=== PATIENT | male | born 1960 | race Caucasian/White ===

== ENCOUNTER 2018-01-23 09:27 | Outpatient (CLI) | payer OTHER, SELFPAY ==
--- NOTE | 2018-01-23 09:25 | DI.RAD_ITS ---
SYMPTOMS/DIAGNOSIS: COUGH X 5 DAYS, ? PNEUMONIA PA AND LATERAL CHEST: The heart is not enlarged. The left lung is clear. There are areas of patchy consolidation, predominantly in the right upper lobe, consistent with acute infectious process. No pleural effusions seen. Mediastinal contours appear normal. CONCLUSION: Findings consistent with right upper lobe pneumonia. Appropriate follow-up studies requested following treatment.
== END 2018-01-23 09:47 ==
PROVIDERS: PCP Family Medicine; Visit Provider Family Medicine
DX: R05 Cough (principal); J18.9 Pneumonia, unspecified organism
CPT/HCPCS: 71046

== ENCOUNTER 2018-04-25 21:24 | Emergency (ER) | payer OTHER, SELFPAY ==
[2018-04-25 21:27] VITALS: BP 142/86; PULSE 82; RESP 20; TEMP 36.7; O2SAT 96
--- NOTE | 2018-04-25 21:34 | ED.GENADUL_ITS ---
Discharge Plan Disposition Patient Disposition: HOME Condition: Improving Discharge Details Chief Complaint: RespSymp Clinical Impression: Acute bronchitis Primary Care Provider: Landon Almaguer ED Provider: Julius Freire Home Meds and New Rx's Prescriptions: New prednisone 20 mg tablet 40 mg PO DAILY 5 Days Qty: 10 RF: 0 doxycycline hyclate 100 mg capsule 100 mg PO BID 10 Days Qty: 20 RF: 0 Continued atorvastatin [Lipitor] 10 MG tablet 10 mg PO DAILY RF: 0 omeprazole 20 MG capsule,delayed release(DR/EC) 20 mg PO DAILY RF: 0 fluticasone [Flovent HFA] 120 PUFF HFA aerosol inhaler 1 puff Inhalation PRN PRNRF: 0 albuterol sulfate 8.5 GM HFA aerosol inhaler 2 puff Inhalation PRN PRNRF: 0 fluticasone [Flonase] 16 GM spray,suspension 1 spry NS PRN PRNRF: 0 Discontinued amoxicillin-pot clavulanate 1 TAB tablet 1 ea PO BID Qty: 20 RF: 0 Discharge Instructions Instructions: Acute Bronchitis (ED) Additional Instructions: Please take prednisone and doxycycline as prescribed. Follow-up with regular doctor if not improving in 3-5 days time. Return to the emergency department for any acute concerns Medical Decision Making 57-year-old male presents from home complaining of 2 weeks of cough and congestion and feels similar to pneumonia that he had in December. He is afebrile, well-appearing, with normal oxygenation. Given inhaled DuoNeb and oral prednisone, referred for chest x-ray. Somewhat improved with inhaled DuoNeb. Chest x-ray is without focal infiltrate. We will treat for acute bronchitis with bronchospasm with both a burst of prednisone as well as a 10-day course of doxycycline. Patient stable, improved, appropriate for discharge to home. HPI General Mode of arrival: ambulatory . Date/Time Provider Initiated Documentation: 04/25/18 21:27 . Limitations to Documentation: no limitations . Information obtained by: patient . History of Present Illness 57 year old M presents to the emergency department with the chief complaint of Cough times 2 weeks, described as similar to prior episodes, Quality is described as dull, and is localized to the chest. Patient reports no radiation. Patient started experiencing this day(s) and it has been constant. No relieving factors improve symptom(s), No exacerbating factors reported . Patient notes cough and shortness of breath. Patient did receive the following treatments prior to arrival, none Related Data Home Medications Medication Instructions Recorded Confirmed albuterol sulfate 2 puff INHALATION PRN PRN 01/02/13 01/02/13 atorvastatin [Lipitor] 10 mg PO DAILY 01/02/13 01/02/13 fluticasone [Flonase] 1 spry NS PRN PRN 01/02/13 01/02/13 fluticasone [Flovent HFA] 1 puff INHALATION PRN PRN 01/02/13 01/02/13 omeprazole 20 mg PO DAILY 01/02/13 01/02/13 doxycycline hyclate 100 mg PO BID 10 Days #20 cap 04/25/18 prednisone 40 mg PO DAILY 5 Days #10 tab 04/25/18 Previous Rx's Medication Instructions Recorded doxycycline hyclate 100 mg PO BID 10 Days #20 cap 04/25/18 prednisone 40 mg PO DAILY 5 Days #10 tab 04/25/18 Allergies Allergy/AdvReac Type Severity Reaction Status Date / Time No Known Allergies Allergy Unverified 06/19/12 06:35 General Stated Complaint: RespSymp JADA: 3 Review of Systems Review of Systems 8 systems reviewed and otherwise negative [facility] Social History Smoking and Tabacco status: Never Exam Narrative Exam Narrative: GEN: awake, alert, oriented 3. Pleasant, well groomed, interactive. HEAD: Normocephalic, atraumatic ENT: Mucous membranes moist, oropharynx unremarkable, External ear exam unremarkable EYES: PERRL, EOMI NECK: Full ROM, no MAURICIO, no menigismus CHEST/RESP: Nontender, clear to auscultation bilateral, scant end expiratory wheeze, no rhonchi/rales. Cough noted CARDIOVASCULAR: RRR, no murmur, rub bob. 2+ Rad pulse bilateral ABDOMEN: Soft, nontender, no mass. +Bowel sounds EXT: Full ROM, no edema, no rash Neuro: Grossly normal neurologic exam, conversant, interactive. Psych: Speech fluent, thoughts congruent, affect normal Course Vital Signs Temperature 36.7 C 04/25/18 21:27 Pulse 82 04/25/18 21:27 Respiratory Rate 20 04/25/18 21:27 Blood Pressure 142/86 H 04/25/18 21:27 Pulse Oximetry 96 04/25/18 21:27 Temperature 36.7 C 04/25/18 21:27 Temperature Source Temporal Artery Scan 04/25/18 21:27 Pulse 82 04/25/18 21:27 Respiratory Rate 20 04/25/18 21:27 Respiratory Effort Non-Labored 04/25/18 21:30 Blood Pressure 142/86 H 04/25/18 21:27 Blood Pressure Position Sitting 04/25/18 21:27 Pulse Oximetry 96 04/25/18 21:27 Oxygen Delivery Method Room Air 04/25/18 21:27 Oxygen Flow Rate 0 04/25/18 21:27 Pain Level 5 04/25/18 21:27
--- NOTE | 2018-04-25 21:38 | DI.RAD_ITS ---
SYMPTOMS/DIAGNOSIS: COUGH, CONGESTION PA AND LATERAL CHEST: Comparison is made with [id number]. The heart size is normal. The aorta is tortuous, unchanged. The lungs appear clear. No infiltrate or effusion is seen. IMPRESSION: No acute abnormality.
[2018-04-25] MEDS: Albuterol/Ipratropium 3 ML UPD VIAL UPD (21:49)
[2018-04-25] MEDS: predniSONE 20 MG TAB 60 MG PO (21:49)
[2018-04-25] MEDS: Doxycycline Hyclate 100 MG CAP PO (22:39)
--- NOTE | 2018-04-25 23:34 | DI.VRAD_ITS ---
EXAM: XR Chest, 2 Views EXAM DATE/TIME: 04/25/2018 10:30 PM CLINICAL HISTORY: 57 years old, male; Signs and symptoms; Cough; Patient HX: Cough, congestion TECHNIQUE: XR of the chest, 2 views. COMPARISON: CR XR CHEST 2V PA LATERAL 01/23/2018 9:22 AM FINDINGS: Lungs: Unremarkable. No consolidation. Pleural space: Unremarkable. No pleural effusion. No pneumothorax. Heart/Mediastinum: Unremarkable. No cardiomegaly. Bones/joints: Unremarkable. IMPRESSION: No acute findings. Dictated and Authenticated by: Lucy Davies MD. Ordering:ESTEVAN Madrid MD
== END 2018-04-25 22:42 | disposition home or self-care (01) ==
PROVIDERS: Emergency Provider Emergency Medicine; PCP Family Medicine
DX: R09.89 Other specified symptoms and signs involving the circulatory and respiratory systems (principal); R06.02 Shortness of breath; J20.9 Acute bronchitis, unspecified
CPT/HCPCS: 94640; 99283; 71046; J7512; J7620

== ENCOUNTER 2018-05-12 02:54 | Outpatient (CLI) | payer OTHER, SELFPAY ==
[2018-05-12] MEDS: Inhaler, Assist Device 1 EACH MC (13:51)
[2018-05-12] MEDS: Albuterol HFA 18 GM 200 PUFF INH IH (13:51)
--- NOTE | 2018-05-12 20:04 | PFT_ITS ---
DATE OF SERVICE: 05/12/18 REQUESTING PROVIDER: Dr. Una Gamez Spirometry shows no evidence of obstructive airways disease. No bronchodilator response. Lung volumes show no evidence of restriction. Diffusion capacity normal. Airways resistance normal. IMPRESSION: Normal pulmonary function study. If the diagnosis of asthma is in question, proceeding with methylcholine challenge testing may prove to be useful. Clinical correlation, therefore, recommended.
== END 2018-05-12 03:14 ==
PROVIDERS: PCP Family Medicine; Visit Provider Internal Medicine Pulmonary Disease
DX: R05 Cough (principal)
CPT/HCPCS: 94060; 94150; 94726; 94729

== ENCOUNTER 2018-07-13 05:47 | Outpatient (CLI) | payer OTHER, SELFPAY ==
[2018-07-13 08:44] LABS: Cholesterol 201 mg/dL (50-200); HDL Cholesterol 37 mg/dL (40-60); LDL CHOLESTEROL 136 mg/dL (<100); Triglyceride 108 mg/dL (30-150)
[2018-07-14 10:13] LABS: PSA, Screening 0.4 ng/ml (0-3.5)
== END 2018-07-13 06:07 ==
PROVIDERS: PCP Family Medicine; Visit Provider Family Medicine
DX: E78.5 Hyperlipidemia, unspecified (principal); Z12.5 Encounter for screening for malignant neoplasm of prostate
CPT/HCPCS: 36415; 80061; 83721; 84153

== ENCOUNTER 2018-09-25 07:02 | Day surgery (SDC) | payer OTHER, SELFPAY ==
[2018-09-25 07:16] VITALS: BP 135/81; PULSE 47; RESP 15; TEMP 36.6; O2SAT 100
[2018-09-25] MEDS: Lactated Ringers 1,000 ML 80 ML IV (07:51)
--- NOTE | 2018-09-25 08:09 | W.PM.DSUDISC ---
Discharge Plan Disposition Patient Disposition: HOME Condition: Good Discharge Details Reason For Visit: Colonoscopy Attending Provider: Magy Villarreal Primary Care Provider: Landon Almaguer Home Meds and New Rx's Prescriptions: Continued hydrocortisone [Anusol-HC] 2.5 % cream with perineal applicator 1 applic AK QD-BID PRNRF: 0 omeprazole 20 MG capsule,delayed release(DR/EC) 20 mg PO DAILY RF: 0 Flovent HFA 120 PUFF HFA aerosol inhaler 1 puff Inhalation PRN PRNRF: 0 albuterol sulfate 8.5 GM HFA aerosol inhaler 2 puff Inhalation PRN PRNRF: 0 fluticasone propionate [Flonase] 16 GM spray,suspension 1 spry NS PRN PRNRF: 0 Discharge Instructions Additional Instructions: Your colonoscopy showed diverticulosis. Take in 30 grams of fiber daily. No polyps were found. Due to history of polyps, plan for a colonoscopy in 5 years. Activity:: Activity as Tolerated Diet:: As Tolerated Discharge Orders Discharge Orders: Discharge Order (Routine); Ordered 09/25/18 Ordered By: Magy Villarreal DS: Diagnosis Discharge Diagnosis (1) Diverticulosis: Start date: 09/25/18 Start time: 08:46
[2018-09-25] MEDS: Ondansetron 4 MG/2 ML VIAL IVP (09:09)
[2018-09-25 09:48] VITALS: BP 131/86; PULSE 42; RESP 18; TEMP 36.3; O2SAT 97
--- NOTE | 2018-09-25 12:07 | ROE_ITS ---
DATE OF PROCEDURE: September 25, 2018 PREOPERATIVE DIAGNOSIS: History of colon polyps. POSTOPERATIVE DIAGNOSIS: Diverticulosis. PROCEDURE: Colonoscopy. SURGEON: Magy Villarreal M.D. ANESTHESIA: Monitored Anesthesia Care. INDICATIONS: This is a 57-year-old man whose last colonoscopy in 2012 showed tubular adenomas. He p resents for routine follow-up. He has no family history of colon cancer and is asymptomatic. PROCEDURE: He was placed in the left Reddy position. Propofol was titrated to sedation. Digital rec kapil examination revealed no abnormalities. The scope was advanced to the cecum without difficulty. He was noted to have a slightly tortuous sigmoid colon. The ileocecal valve and appendiceal orifice were clearly identified. His prep was excellent. The scope was slowly withdrawn with no abnormaliti es seen within the ascending, transverse or descending colon. He had moderate diverticular change in the sigmoid region. The rectum was normal including on retroflex view. He tolerated the procedure well and was stable to recovery. With his prior history of polyps he will need a follow-up colonosco py again in five years. cc: Landon Almaguer D.O.
== END 2018-09-25 09:59 | disposition home or self-care (01) ==
PROVIDERS: PCP Family Medicine; Visit Provider Surgery
PROC: 0DJD8ZZ Inspection of Lower Intestinal Tract, Via Natural or Artificial Opening Endoscopic (ICD-10-PCS; CPT 45378; principal; 2018-09-25 08:15)
DX: Z12.11 Encounter for screening for malignant neoplasm of colon (principal); Z86.010 Personal history of colon polyps; K57.30 Diverticulosis of large intestine without perforation or abscess without bleeding; K21.9 Gastro-esophageal reflux disease without esophagitis; E78.5 Hyperlipidemia, unspecified; G47.33 Obstructive sleep apnea (adult) (pediatric)
CPT/HCPCS: 45378; J2405

== ENCOUNTER 2018-09-25 13:29 | Inpatient (IN) | payer OTHER, SELFPAY ==
[2018-09-25] VITALS (29 sets, daily range): BP systolic 95–122; BP diastolic 53–80; PULSE 54–172; RESP 13–44; TEMP 36.2–39.3; O2SAT 92–98
[2018-09-25] MEDS: Normal Saline 1,000 ML 1000 ML IV ×3 (14:20→18:12)
--- NOTE | 2018-09-25 14:28 | DI.RAD_ITS ---
SYMPTOMS/DIAGNOSIS: FEVER CHEST X-RAY, PA AND LATERAL: Comparison is 04/25/18. The heart size and pulmonary vasculature are stable and within normal limits. There is an infiltrate in the left lingula. The lungs are otherwise clear. No effusions or pneumothoraces are identified. Age- appropriate degenerative changes are seen in the spine. IMPRESSION: Left lingular pneumonia.
[2018-09-25 14:30] LABS: Lactate 2.7 mmol/L (0.6-1.4)
[2018-09-25 14:31] LABS: Abs Immature Grans 0.02 k/cumm (0.0-0.09); Absolute Basophil Count 0.01 k/cumm (0.0-0.2); Absolute Lymphocyte Count 0.39 k/cumm (1.2-3.4); Absolute Monocyte Count 0.32 k/cumm (0.11-0.7); Absolute Neutrophil Count 13.24 k/cumm (1.2-6.7); Basophils % 0.1; Eosinophils % 0.1; HCT 42.9 % (40.0-50.0); HGB 14.2 g/dL (13.5-17.5); Immature Grans % 0.1; Lymphocytes % 2.8; Mean Corp. HGB Concentration 33.1 g/dL (32.0-36.0); Mean Corpuscular Hemoglobin 29.8 pg (27.0-33.0); Mean Corpuscular Volume 89.9 fL (80-95); Monocytes % 2.3; Neutrophils % 94.6; Platelet Count 178 x1000/uL (130-400); RBC 4.77 m/cumm (4.50-6.00)
[2018-09-25 14:34] LABS: Absolute Eosinophil Count 0.01 k/cumm (0.0-0.7)
[2018-09-25 14:45] LABS: ALT 23 U/L (12-78); AST 15 U/L (15-37); Albumin 3.7 g/dL (3.4-5.0); Alkaline Phosphatase 68 U/L (46-116); Anion Gap 9.6 mmol/L (3-11); BUN 18 mg/dL (7-18); Bilirubin, Total 0.6 mg/dL (0.2-1.0); CO2 26.4 mmol/L (21.0-32.0); Calcium 8.7 mg/dL (8.5-10.1); Chloride 101 mmol/L (98-107); Glucose 142 mg/dL (70-100); Potassium 3.7 mmol/L (3.5-5.1); Sodium 137 mmol/L (136-145); Total Protein 7.5 g/dL (6.4-8.2)
[2018-09-25] MEDS: Ketorolac 15 MG/ML VIAL IVP (14:56)
--- NOTE | 2018-09-25 14:59 | W.ED.GENAD ---
Discharge Plan Disposition Patient Disposition: [facility] INPATIENT Condition: Good Discharge Details Chief Complaint: GenMedical Clinical Impression: Aspiration pneumonia Admit Date/Time: 09/25/18 15:47 Admit Provider: Lala Ovalle Attending Provider: Donaldo Vigil Primary Care Provider: Lnadon Almaguer [facility] Course: Mr. Frankel was admitted for aspiration pneumonia following a colonoscopy on 09/25. He was sedated, threw up after sedation went home and within hours had rigors, febrile and flu like sx. He had a nonproductive cough with an elevated lactate. He was admitted to [facility] and started on Zosyn and IV fluids. He was also given steroids in the ED. Over the course of his hospitalization his lactate normalized in 24 hours. He was afebrile, he did have an increase in leukocytosis but likely attributed to steroids. He was transitioned to oral augmentin 24 hours after hospitalization his steroids were decreased and he was feeling remarkable with a decrease in leukocytosis. He was ambulating in the hallway, lung sounds clear, no cough, fever or sputum production. He was also found to have possible ileus by CT he did ambulate, never had any abdominal pain and had regular bm. Not concerning for obstruction. he feels ready to go home. He will be discharged home on augmentin 7 day course with repeat CBC and recommend follow up with PCP in 1 week. Denies CP, SOB, N/V/D. Discharge Instructions Instructions: Pneumonitis (GEN), Aspiration Pneumonia (GEN), How Your Lungs Work (DC) Additional Instructions: Take cetrizine daily for 30 days Follow up for lab work in 3 days Follow up with your primary provider in 1 week Use the incentive spirometer daily at least 10 times a day for at least 1 week. Seek medical attention immediately if you have Shortness of breath, nausea, vomiting, diarrhea or chest pain Forms: Nursing Discharge Form Referrals: Landon Almaguer [Primary Care Provider] - (Please call the office on Friday morning to schedule a follow up appointment to be seen within the week) Discharge Data Discharge Date/Time-TO BE ENTERED AT DEPARTURE: 09/25/18 16:33 Medical Decision Making Patient presenting the emergency department for chief complaint of cough, fever, malaise. Patient had colonoscopy this morning around 8 AM and was discharged without any known complications except for maybe some slight drooling after intubation and episode of nausea after he was extubated. Patient states generalized body aches and muscle aches, had an episode of what sounds like rigors, and gave acetaminophen for pain control. Patient was able to eat had no nausea vomiting further but continued to feel worse. Patient is presenting to the emergency department febrile with temp of 39.3, not hypotensive not tachycardic. Patient does have a dry cough that was not previously present, physical exam shows nontender abdomen with no focal findings, no rigidity no guarding, clear lung sounds, normal cardiac exam. Given patient's recent procedure, new cough, and fever there is concern for possible aspiration pneumonia plan to check labs, and chest x-ray. Pending results patient given IV fluids and Toradol. Reported of lactate of 2.7, white count of 14 otherwise unremarkable labs. Given lactate elevated, white count of 14 patient started on Zosyn 4.5gm for concern of aspiration pneumonia. Review of chest x-ray and radiologist interpretation shows lingular pneumonia. Discussed with patient about admission given that he is just post procedure, rapid onset of symptoms, and elevated lactate. Patient was agreeable to stay. Spoke with Angella SAVAGE for Dr. Shah general surgeon. After discussing the case and informing her that Dr. Ovalle will consult on patient would not admit she agreed on admission of patient. Bridge orders were placed. HPI General Mode of arrival: ambulatory. Date/Time Provider Initiated Documentation: 09/25/18 13:52. Limitations to Documentation: no limitations. Information obtained by: patient, family and RN notes reviewed. History of Present Illness 57 year old M presents to the emergency department with the chief complaint of Fever, malaise, post- colonoscopy, described as moderate, with intensity rated at 8. Quality is described as aching (Generalized body aches), Patient started experiencing this hour(s) (4) and it has been constant. No relieving factors improve symptom(s), Patient did receive the following treatments prior to arrival, other (1000 mg acetaminophen at 11a.m.) Related Data Home Medications Medication Instructions Recorded Confirmed Flovent HFA 1 puff INHALATION BID 01/02/13 09/25/18 albuterol sulfate 2 puff INHALATION PRN PRN 01/02/13 09/25/18 fluticasone propionate [Flonase] 1 spry NS PRN PRN 01/02/13 09/25/18 omeprazole 20 mg PO DAILY 01/02/13 09/25/18 amoxicillin-pot clavulanate 1 tab PO BID #13 tab 09/27/18 Previous Rx's Medication Instructions Recorded amoxicillin-pot clavulanate 1 tab PO BID #13 tab 09/27/18 Allergies Allergy/AdvReac Type Severity Reaction Status Date / Time lactose Allergy Verified 09/25/18 13:46 General Stated Complaint: GenMedical JADA: 3 Review of Systems Constitutional Reports chills, Reports fever(s) and Reports malaise Cardiovascular Denies chest pain, Denies diaphoresis and Denies dyspnea Respiratory Reports cough and Denies dyspnea Gastrointestinal Reports abdominal pain (Generalized) Musculoskeletal Reports myalgias PFSH Medical History Allergic rhinitis (Chronic) Asthma, intermittent (Chronic) Depression (Resolved) Diverticulosis (Acute) GERD (gastroesophageal reflux disease) (Chronic) Hx of wisdom tooth extraction (Acute) Hyperlipidemia (Chronic) Lactose intolerance (Chronic) Low back pain (Chronic) Renal cyst, right (Chronic) Sleep apnea (Chronic) Surgical History H/O vasectomy (Acute) Hx of arthroscopy of right knee (Acute) Hx of colonoscopy (Chronic) Hx of rhinoplasty (Acute) Family History Father Heart disease Diabetes Brother Stroke Mother Brain cancer Sister Lung cancer Diabetes Son Diabetes Social History Smoking/Tobacco Use Status: Never Alcohol Intake: current Alcohol Intake frequency: a few times a month Alcohol type: hard liquor Drug use: Never Details: alcohol last week 1 drink Do you feel safe at home: Yes Do you feel safe in your relationship?: Yes Exam Const General: cooperative and ill appearing acutely Nutritional Appearance: overweight Orientation: alert, awake and oriented x3 Resp Effort & Inspection: normal respiratory effort, able to speak in complete sentences, normal respiratory pattern, no audible wheezes, cough Quality of cough: actively coughing and no stridor Auscultation: clear to auscultation bilaterally Cardio Rate: regular rate Rhythm: regular rhythm Heart Sounds: S1 normal and S2 normal GI Inspection: normal to inspection Palpation: soft, no guarding, not rigid and nontender Auscultation: normal bowel sounds Course Vital Signs Temperature 37.0 C 09/25/18 13:36 Pulse 80 09/25/18 13:36 Respiratory Rate 20 09/25/18 13:36 Blood Pressure 108/74 09/25/18 13:36 Pulse Oximetry 97 09/25/18 13:36 Temperature 39.3 C H 09/25/18 14:56 Temperature Source Oral 09/25/18 13:52 Pulse 80 09/25/18 13:36 Respiratory Rate 20 09/25/18 13:36 Respiratory Effort Non-Labored 09/25/18 13:44 Blood Pressure 108/74 09/25/18 13:36 Pulse Oximetry 97 09/25/18 13:36 Oxygen Delivery Method Room Air 09/25/18 13:36 Oxygen Flow Rate 0 09/25/18 13:36 Pain Level 8 09/25/18 13:36 Lab/Test Results Lab/Test Results: 09/25/18 14:35 Blood Blood Culture - Pending 09/25/18 14:15 Blood Blood Culture - Pending Laboratory Tests Range/Units 09/25/18 09/25/18 09/25/18 14:15 14:15 14:15 WBC (4.4-10.8) k/cumm 14.00 H RBC (4.50-6.00) m/cumm 4.77 Hgb (13.5-17.5) g/dL 14.2 Hct (40.0-50.0) % 42.9 MCV (80-95) fL 89.9 MCH (27.0-33.0) pg 29.8 MCHC (32.0-36.0) g/dL 33.1 RDW (11.8-14.1) % 14.0 Plt Count (130-400) x1000/uL 178 MPV (8.0-11.0) fL 11.0 Immature Gran % 0.1 Neutrophils % 94.6 Lymphocytes % 2.8 Monocytes % 2.3 Eosinophils % 0.1 Basophils % 0.1 Absolute Neutrophils (1.2-6.7) k/cumm 13.24 H Absolute Lymphocytes (1.2-3.4) k/cumm 0.39 L Absolute Monocytes (0.11-0.7) k/cumm 0.32 Absolute Eosinophils (0.0-0.7) k/cumm 0.01 Absolute Basophils (0.0-0.2) k/cumm 0.01 Sodium (136-145) mmol/L 137 Potassium (3.5-5.1) mmol/L 3.7 Chloride (98-107) mmol/L 101 Carbon Dioxide (21.0-32.0) mmol/L 26.4 Anion Gap (3-11) mmol/L 9.6 BUN (7-18) mg/dL 18 Creatinine (0.70-1.30) mg/dL 1.20 Estimated GFR/1.73 m2 (mL/min/1.73m2) >= 60.00 Glucose (70-100) mg/dL 142 H Lactate (0.6-1.4) mmol/L 2.7 H* Calcium (8.5-10.1) mg/dL 8.7 Total Bilirubin (0.2-1.0) mg/dL 0.6 AST (15-37) U/L 15 ALT (12-78) U/L 23 Alkaline Phosphatase (46-116) U/L 68 Total Protein (6.4-8.2) g/dL 7.5 Albumin (3.4-5.0) g/dL 3.7
[2018-09-25 15:05] LABS: Bilirubin Negative (Negative); Blood Negative (Negative); Clarity Clear (Clear); Glucose Negative (Negative); Ketones Negative (Negative); Leukocyte Esterase Negative (Negative); Nitrite Negative (Negative); Specific Gravity 1.015 (1.005-1.025); Urobilinogen 0.2 EU/dL (Up TO 0.2); pH 8.5 (5-8)
[2018-09-25] MEDS: Normal Saline 1,000 ML 75 ML IV ×2 (15:56→19:24)
--- NOTE | 2018-09-25 16:13 | DI.VRAD_ITS ---
EXAM: XR Chest, 2 Views EXAM DATE/TIME: 09/25/2018 3:48 PM CLINICAL HISTORY: 57 years old, male; Fever; Patient HX: Colonoscopy today 09/25/2018 TECHNIQUE: Imaging protocol: XR of the chest, 2 views. COMPARISON: CR XR CHEST 2V PA LATERAL 04/25/2018 10:16 PM FINDINGS: Lungs: Mild Opacity in the left base may represent atelectasis/pneumonia. Pleural space: Unremarkable. No pleural effusion. No pneumothorax. Heart/Mediastinum: Unremarkable. No cardiomegaly. Bones/joints: Degenerative changes in the thoracic spine IMPRESSION: Mild Opacity in the left base may represent atelectasis/pneumonia. Dictated and Authenticated by: Josefina Serrato MD. Ordering:LAURENCE Hendricks MD
--- NOTE | 2018-09-25 16:23 | MCONE_ITS ---
Date of service: 09/25/18 Time of Service: 16:23 [facility] Medical History Allergic rhinitis (Chronic) Asthma, intermittent (Chronic) Depression (Chronic) Diverticulosis (Acute) GERD (gastroesophageal reflux disease) (Chronic) Hx of wisdom tooth extraction (Acute) Hyperlipidemia (Chronic) Lactose intolerance (Chronic) Low back pain (Chronic) Renal cyst, right (Chronic) Sleep apnea (Chronic) Surgical History H/O vasectomy (Acute) Hx of arthroscopy of right knee (Acute) Hx of colonoscopy (Chronic) Hx of rhinoplasty (Acute) Social History Smoking/Tobacco Use Status: Never Alcohol Intake: current Alcohol Intake frequency: a few times a month Alcohol type: hard liquor Drug use: Never Details: alcohol last week 1 drink Do you feel safe at home: Yes Do you feel safe in your relationship?: Yes Results Last Vital Signs Temp 37.9 C H 09/25/18 16:20 Pulse 172 H 09/25/18 16:01 Resp 19 09/25/18 15:21 BP 117/80 09/25/18 16:01 Pulse Ox 94 L 09/25/18 16:10 Labs : 09/25/18 14:15 09/25/18 14:15 Laboratory Results - last 24 hr 09/25/18 09/25/18 09/25/18 14:15 14:15 14:15 WBC 14.00 H RBC 4.77 Hgb 14.2 Hct 42.9 MCV 89.9 MCH 29.8 MCHC 33.1 RDW 14.0 Plt Count 178 MPV 11.0 Immature Gran % 0.1 Neutrophils % 94.6 Lymphocytes % 2.8 Monocytes % 2.3 Eosinophils % 0.1 Basophils % 0.1 Absolute Neutrophils 13.24 H Absolute Lymphocytes 0.39 L Absolute Monocytes 0.32 Absolute Eosinophils 0.01 Absolute Basophils 0.01 Sodium 137 Potassium 3.7 Chloride 101 Carbon Dioxide 26.4 Anion Gap 9.6 BUN 18 Creatinine 1.20 Estimated GFR/1.73 m2 >= 60.00 Glucose 142 H Lactate 2.7 H* Calcium 8.7 Total Bilirubin 0.6 AST 15 ALT 23 Alkaline Phosphatase 68 Total Protein 7.5 Albumin 3.7 Urine Color Urine Clarity Urine pH Ur Specific Sharps Urine Protein Urine Ketones Urine Blood Urine Nitrite Urine Bilirubin Urine Urobilinogen Ur Leukocyte Esterase Urine Glucose 09/25/18 15:00 WBC RBC Hgb Hct MCV MCH MCHC RDW Plt Count MPV Immature Gran % Neutrophils % Lymphocytes % Monocytes % Eosinophils % Basophils % Absolute Neutrophils Absolute Lymphocytes Absolute Monocytes Absolute Eosinophils Absolute Basophils Sodium Potassium Chloride Carbon Dioxide Anion Gap BUN Creatinine Estimated GFR/1.73 m2 Glucose Lactate Calcium Total Bilirubin AST ALT Alkaline Phosphatase Total Protein Albumin Urine Color Yellow Urine Clarity Clear Urine pH 8.5 H Ur Specific Sharps 1.015 Urine Protein Negative Urine Ketones Negative Urine Blood Negative Urine Nitrite Negative Urine Bilirubin Negative Urine Urobilinogen 0.2 Ur Leukocyte Esterase Negative Urine Glucose Negative
--- NOTE | 2018-09-25 16:40 | W.PM.HP.N ---
Date of service: 09/25/18 Time of Service: 16:40 Assessment and Plan (1) Postprocedural aspiration pneumonitis: Current visit: Yes Status: Acute With sepsis. Blood culture are pending. Continue zosyn initiated in the ED. Obtaining sputum C&S. Cover with steroids for the pneumonitis component. Provide bronchodilators. Aggressive IVF. (2) Hypotension: Current visit: Yes Status: Acute Likely a combination of dehydration due to the recent bowel prep in addition to sepsis. Lactates have already normalized. Will continue aggressive IVF. (3) GERD (gastroesophageal reflux disease): Current visit: No Status: Chronic Continue PPI (4) Asthma, intermittent: Current visit: No Status: Chronic Does not appear to be in an acute exacerbation at this time. Will continue flovent; provide prn albuterol (5) Sleep apnea: Current visit: No Status: Chronic Evidently the patient has a difficulty affording equipment. Will provide CPAP here if hypoxia is noted. (6) Pleuritic chest pain: Current visit: Yes Status: Acute Treat with NSAIDS (7) DVT prophylaxis: Current visit: Yes Status: Acute lovenox (8) Discharge planning issues: Current visit: Yes Status: Acute Full code History of Present Illness Chief Complaint: cough, aches all over Narrative: Mr Frankel is a 57 year old male with PMHx of asthma, EDWARDO (does not yet have a CPAP), GERD, tubular adenomas, who underwent a colonoscopy this morning. He had sedation by propofol, was not intubated, but had oxygen by nasal cannula and face mask, was noted to be drooling quite a bit during procedure. At the end of the procedure, he did seem to have one episode of belching, requiring suctioning. In recovery, he vomited. He does not remember actually aspirating. About an hour after the procedure he felt rigors as well as aches/pains all over, and developed a nonproductive cough. He also has had pain on the left side of his chest, but only when he coughs. When he presented to the ED, he was found to be febrile to 39.3, to have a leucocytosis. His imaging was consistent with left lingular pneumonia. He was initiated on IV zosyn and IV fluids. We were asked to admit the patient for further care. Review of Systems Review of Systems 12 systems reviewed. Pertinent positives and negatives are as per HPI. [facility] Medical History Allergic rhinitis (Chronic) Asthma, intermittent (Chronic) Depression (Chronic) Diverticulosis (Acute) GERD (gastroesophageal reflux disease) (Chronic) Hx of wisdom tooth extraction (Acute) Hyperlipidemia (Chronic) Lactose intolerance (Chronic) Low back pain (Chronic) Renal cyst, right (Chronic) Sleep apnea (Chronic) Surgical History H/O vasectomy (Acute) Hx of arthroscopy of right knee (Acute) Hx of colonoscopy (Chronic) Hx of rhinoplasty (Acute) Family History (Updated 09/25/18 @ 17:51 by Lala Ovalle MD) Father Heart disease Diabetes Brother Stroke Mother Brain cancer Sister Lung cancer Diabetes Son Diabetes Social History Smoking/Tobacco Use Status: Never Alcohol Intake: current Alcohol Intake frequency: a few times a month Alcohol type: hard liquor Drug use: Never Details: alcohol last week 1 drink Do you feel safe at home: Yes Do you feel safe in your relationship?: Yes Meds Home Medications Medication Instructions Recorded Confirmed Type Flovent HFA 1 puff INHALATION PRN PRN 01/02/13 09/25/18 History albuterol sulfate 2 puff INHALATION PRN PRN 01/02/13 09/25/18 History fluticasone propionate [Flonase] 1 spry NS PRN PRN 01/02/13 09/25/18 History omeprazole 20 mg PO DAILY 01/02/13 09/25/18 History Allergies Allergy/AdvReac Type Severity Reaction Status Date / Time lactose Allergy Verified 09/25/18 13:46 Exam Narrative Exam Narrative: General: Very pleasant male, mildly anxious, A&Ox3, sitting at the edge of the bed, no difficulty breathing observed, no difficulty completing sentences Neurological: A&Ox3, no focal deficits Psychiatric: appropriate speech pattern/content Skin: inact HEENT: Atraumatic, normocephalic, EOMI, dry MM, large neck diameter, no submandibular or cervical lymphadenopathy, no goiter or JVD Cardiovascular: RRR, no m/r/g Lungs: CTAB Gastrointestinal: abdomen is soft, mildly diffusely tender, no rebound, mildly distended Extremities: no e/c/c BLE's, 2+ pedal pulses B Results Imaging Additional studies: CXR: Left lingular pneumonia. CXR: Mild Opacity in the left base may represent atelectasis/pneumonia. Acute abdominal series: official read pending, but per my read, loops of gas-distended bowel, nonobstructive pattern, no free air Labs : 09/25/18 14:15 09/25/18 14:15 Laboratory Results - last 24 hr 09/25/18 09/25/18 09/25/18 14:15 14:15 14:15 WBC 14.00 H RBC 4.77 Hgb 14.2 Hct 42.9 MCV 89.9 MCH 29.8 MCHC 33.1 RDW 14.0 Plt Count 178 MPV 11.0 Immature Gran % 0.1 Neutrophils % 94.6 Lymphocytes % 2.8 Monocytes % 2.3 Eosinophils % 0.1 Basophils % 0.1 Absolute Neutrophils 13.24 H Absolute Lymphocytes 0.39 L Absolute Monocytes 0.32 Absolute Eosinophils 0.01 Absolute Basophils 0.01 Sodium 137 Potassium 3.7 Chloride 101 Carbon Dioxide 26.4 Anion Gap 9.6 BUN 18 Creatinine 1.20 Estimated GFR/1.73 m2 >= 60.00 Glucose 142 H Lactate 2.7 H* Calcium 8.7 Total Bilirubin 0.6 AST 15 ALT 23 Alkaline Phosphatase 68 Total Protein 7.5 Albumin 3.7 Urine Color Urine Clarity Urine pH Ur Specific [place] Urine Protein Urine Ketones Urine Blood Urine Nitrite Urine Bilirubin Urine Urobilinogen Ur Leukocyte Esterase Urine Glucose 09/25/18 15:00 WBC RBC Hgb Hct MCV MCH MCHC RDW Plt Count MPV Immature Gran % Neutrophils % Lymphocytes % Monocytes % Eosinophils % Basophils % Absolute Neutrophils Absolute Lymphocytes Absolute Monocytes Absolute Eosinophils Absolute Basophils Sodium Potassium Chloride Carbon Dioxide Anion Gap BUN Creatinine Estimated GFR/1.73 m2 Glucose Lactate Calcium Total Bilirubin AST ALT Alkaline Phosphatase Total Protein Albumin Urine Color Yellow Urine Clarity Clear Urine pH 8.5 H Ur Specific [place] 1.015 Urine Protein Negative Urine Ketones Negative Urine Blood Negative Urine Nitrite Negative Urine Bilirubin Negative Urine Urobilinogen 0.2 Ur Leukocyte Esterase Negative Urine Glucose Negative Last Vital Signs Temp 37.9 C H 09/25/18 16:26 Pulse 92 H 09/25/18 16:26 Resp 16 09/25/18 16:26 BP 105/56 L 09/25/18 16:26 Pulse Ox 94 L 09/25/18 16:26
[2018-09-25] MEDS: Pantoprazole 40 MG TABCR PO (17:04)
[2018-09-25] MEDS: methylPREDNISolone SUCC 125 MG VIAL 60 MG IVP (17:04)
[2018-09-25] MEDS: Normal Saline Flush 10 ML SYR IVP (17:05)
[2018-09-25] MEDS: Acetaminophen 325 MG TAB PO ×2 (17:11→20:51)
[2018-09-25] MEDS: Enoxaparin 40 MG/0.4 ML SYR SC (17:11)
--- NOTE | 2018-09-25 17:13 | DI.RAD_ITS ---
SYMPTOM/DIAGNOSIS: FEVER, SEPSIS, RECENT COLONOSCOPY FLAT AND UPRIGHT ABDOMEN: There is air seen in the colon and scattered in the small bowel. The distended colon could be secondary to recent colonoscopy. There is no evidence of free air or retroperitoneal air. IMPRESSION: Mildly distended colon and small bowel.
--- NOTE | 2018-09-25 17:41 | W.PM.PROGNOT ---
Date of Service Date of service: 09/25/18 Time of Service: 17:41 Assessment and Plan (1) Postprocedural aspiration pneumonitis: Current visit: Yes Status: Acute A\\ Post-procedural aspiration pneumonitis P\\ Per Hospitalist Appreciate them admitting the patient Will be available if patient develops any abdominal pain or issues Subjective Interval history since last seen: Mr. Frankel is a pleasant 57 year old s/p colonoscopy this morning were he apparently had an event of aspiration. He was doing alright after surgery but later on at home developed rigors and SOB. He came back to the ER and CXR showed infiltrate vs atelectasis. Mr. Frankel feels better now. He has mild discomfort in the belly. HAs been passing a lot of flatus since the procedure. No N/V. Exam GI Inspection: normal to inspection Palpation: soft and nontender Auscultation: normal bowel sounds Objective Objective Clinical Data: Abnormal lab results 09/25/18 09/25/18 09/25/18 Range/Units 14:15 14:15 14:15 WBC 14.00 H (4.4-10.8) k/cumm Absolute Neutrophils 13.24 H (1.2-6.7) k/cumm Absolute Lymphocytes 0.39 L (1.2-3.4) k/cumm Glucose 142 H (70-100) mg/dL Lactate 2.7 H* (0.6-1.4) mmol/L Urine pH (5-8) 09/25/18 Range/Units 15:00 WBC (4.4-10.8) k/cumm Absolute Neutrophils (1.2-6.7) k/cumm Absolute Lymphocytes (1.2-3.4) k/cumm Glucose (70-100) mg/dL Lactate (0.6-1.4) mmol/L Urine pH 8.5 H (5-8) Vital Signs Temperature 99.1 F 09/25/18 16:41 Temperature Source Oral 09/25/18 16:20 Pulse 91 H 09/25/18 16:41 Pulse Rhythm Regular 09/25/18 16:41 Pulse 79 09/25/18 14:50 Respiratory Rate 18 09/25/18 16:41 Respiratory Effort 09/25/18 16:41 Respiratory Depth Normal 09/25/18 16:41 Respiratory Pattern Normal 09/25/18 16:41 Blood Pressure 95/61 L 09/25/18 16:41 Blood Pressure Mean 87 09/25/18 16:01 Pulse Oximetry 94 L 09/25/18 16:41 Oxygen Delivery Method Room Air 09/25/18 16:41 Oxygen Flow Rate 0 09/25/18 16:41 Pain Level 5 09/25/18 17:11 Intake & Output 09/24/18 09/25/18 09/25/18 23:59 11:59 23:59 Intake Total 2100 / 2100 Output Total 800 / 800 Balance 1300 / 1300 Weight 229 lb 15.991 oz Intake: IV 2100 / 2100 Output: Urine 800 / 800 Laboratory Results WBC 14.00 k/cumm (4.4-10.8) H 09/25/18 14:15 RBC 4.77 m/cumm (4.50-6.00) 09/25/18 14:15 Hgb 14.2 g/dL (13.5-17.5) 09/25/18 14:15 Hct 42.9 % (40.0-50.0) 09/25/18 14:15 MCV 89.9 fL (80-95) 09/25/18 14:15 MCH 29.8 pg (27.0-33.0) 09/25/18 14:15 MCHC 33.1 g/dL (32.0-36.0) 09/25/18 14:15 RDW 14.0 % (11.8-14.1) 09/25/18 14:15 Plt Count 178 x1000/uL (130-400) 09/25/18 14:15 MPV 11.0 fL (8.0-11.0) 09/25/18 14:15 Immature Gran % 0.1 09/25/18 14:15 94.6 09/25/18 14:15 2.8 09/25/18 14:15 2.3 09/25/18 14:15 0.1 09/25/18 14:15 0.1 09/25/18 14:15 Absolute Neutrophils 13.24 k/cumm (1.2-6.7) H 09/25/18 14:15 Absolute Lymphocytes 0.39 k/cumm (1.2-3.4) L 09/25/18 14:15 Absolute Monocytes 0.32 k/cumm (0.11-0.7) 09/25/18 14:15 Absolute Eosinophils 0.01 k/cumm (0.0-0.7) 09/25/18 14:15 Absolute Basophils 0.01 k/cumm (0.0-0.2) 09/25/18 14:15 Sodium 137 mmol/L (136-145) 09/25/18 14:15 Potassium 3.7 mmol/L (3.5-5.1) 09/25/18 14:15 Chloride 101 mmol/L (98-107) 09/25/18 14:15 Carbon Dioxide 26.4 mmol/L (21.0-32.0) 09/25/18 14:15 9.6 mmol/L (3-11) 09/25/18 14:15 BUN 18 mg/dL (7-18) 09/25/18 14:15 1.20 mg/dL (0.70-1.30) 09/25/18 14:15 >= 60.00 (mL/min/1.73m2) 09/25/18 14:15 Glucose 142 mg/dL (70-100) H 09/25/18 14:15 2.7 mmol/L (0.6-1.4) H* 09/25/18 14:15 Calcium 8.7 mg/dL (8.5-10.1) 09/25/18 14:15 0.6 mg/dL (0.2-1.0) 09/25/18 14:15 AST 15 U/L (15-37) 09/25/18 14:15 ALT 23 U/L (12-78) 09/25/18 14:15 68 U/L (46-116) 09/25/18 14:15 7.5 g/dL (6.4-8.2) 09/25/18 14:15 3.7 g/dL (3.4-5.0) 09/25/18 14:15 Yellow (Yellow) 09/25/18 15:00 Clear (Clear) 09/25/18 15:00 8.5 (5-8) H 09/25/18 15:00 Ur Specific [place] 1.015 (1.005-1.025) 09/25/18 15:00 Negative mg/dL (Negative) 09/25/18 15:00 Negative mg/dL (Negative) 09/25/18 15:00 Negative (Negative) 09/25/18 15:00 Negative (Negative) 09/25/18 15:00 Negative (Negative) 09/25/18 15:00 0.2 EU/dL (Up TO 0.2) 09/25/18 15:00 Ur Leukocyte Esterase Negative (Negative) 09/25/18 15:00 Negative mg/dL (Negative) 09/25/18 15:00
[2018-09-25 17:49] LABS: Lactate 1.1 mmol/L (0.6-1.4)
--- NOTE | 2018-09-25 17:56 | DI.VRAD_ITS ---
EXAM: XR Abdomen, 2 Views EXAM DATE/TIME: 09/25/2018 5:13 PM CLINICAL HISTORY: 57 years old, male; Condition or disease; Patient HX: Sepsis, recent colonoscopy TECHNIQUE: Imaging protocol: Frontal view of the abdomen/pelvis with upright view of the abdomen. COMPARISON: US RENAL ULTRASOUND(P) 06/05/2017 1:15 PM FINDINGS: Gastrointestinal tract: Dilated loops of small bowel may represent ileus or partial obstruction. Air in the colon. Intraperitoneal space: Normal. No free air. Bones/joints: Unremarkable for age. IMPRESSION: 1. Dilated loops of small bowel may represent ileus or partial obstruction. 2. Air in the colon. Dictated and Authenticated by: Josefina Serrato MD. Ordering:NIGEL Reeves MD
[2018-09-25] MEDS: Mometasone 220 MCG 14 DOSE INHALER IH (20:47)
[2018-09-25] MEDS: PIPERACILLIN/TAZO 4.5 GM in Normal Saline 100 ML IVPB (23:58)
[2018-09-26] VITALS (10 sets, daily range): BP systolic 101–130; BP diastolic 50–71; PULSE 46–60; RESP 16–20; TEMP 36–36.8; O2SAT 95–98
[2018-09-26 06:53] LABS: Lactate-non-spesis 1.4 mmol/l (0.6-1.4)
[2018-09-26 06:54] LABS: Abs Immature Grans 0.05 k/cumm (0.0-0.09); Absolute Neutrophil Count 22.08 k/cumm (1.2-6.7); HCT 38.7 % (40.0-50.0); HGB 12.8 g/dL (13.5-17.5); Immature Grans % 0.2; Lymphocytes % 3.3; Mean Corp. HGB Concentration 33.1 g/dL (32.0-36.0); Mean Corpuscular Hemoglobin 30.1 pg (27.0-33.0); Mean Corpuscular Volume 91.1 fL (80-95); Mean Platelet Volume 10.7 fL (8.0-11.0); Monocytes % 3.4; Neutrophils % 93.1; Platelet Count 156 x1000/uL (130-400); RBC 4.25 m/cumm (4.50-6.00); White Blood Cell Count 23.72 k/cumm (4.4-10.8)
[2018-09-26 06:56] LABS: Absolute Lymphocyte Count 0.78 k/cumm (1.2-3.4); Absolute Monocyte Count 0.81 k/cumm (0.11-0.7)
[2018-09-26] MEDS: Normal Saline 1,000 ML 150 ML IV (07:01)
[2018-09-26 07:12] LABS: Diff Comment Agrees w/ Instrument
[2018-09-26 07:13] LABS: Anion Gap 6.8 mmol/L (3-11); BUN 21 mg/dL (7-18); CO2 26.2 mmol/L (21.0-32.0); CREATININE 1.07 mg/dL (0.70-1.30); Calcium 8.2 mg/dL (8.5-10.1); Chloride 106 mmol/L (98-107); Glucose 145 mg/dL (70-100); Magnesium 1.8 mg/dL (1.8-2.4); Potassium 4.1 mmol/L (3.5-5.1); Sodium 139 mmol/L (136-145)
[2018-09-26] MEDS: Pantoprazole 40 MG TABCR PO (07:40)
[2018-09-26] MEDS: predniSONE 20 MG TAB 40 MG PO (07:40)
[2018-09-26] MEDS: PIPERACILLIN/TAZO 4.5 GM in Normal Saline 100 ML IVPB (08:08)
--- NOTE | 2018-09-26 08:08 | PDOC.CMIN ---
- If Service Date Differs Date of service: 09/26/18 Time of Service: 08:08 Care Management Initial Assess REASON FOR HOSPITALIZATION:: Aspiration pneumonia s/p colonoscopy PAST MEDICAL HISTORY/PAST SURGICAL HISTORY:: Allergic rhinitis (Chronic). Asthma, intermittent (Chronic). Depression (Chronic). Diverticulosis (Acute). GERD (gastroesophageal reflux disease) (Chronic). Hx of wisdom tooth extraction (Acute). Hyperlipidemia (Chronic). Lactose intolerance (Chronic). Low back pain (Chronic). Renal cyst, right (Chronic). Sleep apnea (Chronic). Surgical History. H/O vasectomy (Acute). Hx of arthroscopy of right knee (Acute). Hx of colonoscopy (Chronic). Hx of rhinoplasty (Acute) PREVIOUS FUNCTIONAL STATUS/SOCIAL/FAMILY SUPPORTS:: Lester lives with his spouse Rocío in [place], [place] and their youngest daughter. He has two adult children. He is indepedent with ADL's and transportation. CURRENT FUNCTIONAL STATUS:: Lester is sitting up in the chair his and daughter are in the room and supportive. He feels like he may be better. He and his spouse have questions related to benefits. CM reviewed patient assistance applicaton and provided a copy. Lester has been ordered a CPAP however he is unable to obtain one due to high deductable, he has found one company [employer] that may be the least expensive. CM will follow up with [facility] to identify if there is any other options. ADVANCE DIRECTIVES:: On file agent is Rocío (spouse) Has patient been provided with information about the portal?: No Did the patient sign up for the portal?: No CODE STATUS:: Full Code INSURANCE COVERAGE / FINANCIAL ISSUES:: [employer] CURRENT HOME/COMMUNITY SERVICES/EQUIPMENT:: None, needs cpap PRIMARY CARE PHYSICIAN:: Landon Almaguer POTENTIAL DISCHARGE NEEDS:: Follow up with primary care and surgical services as directed, consult with RT r/t CPAP PATIENT/FAMILY EDUCATION NEEDS:: Discharge education, limitations and follow up plan of care. ANTICIPATED BARRIERS TO DISCHARGE:: None TRANSPORTATION:: Via private car with spouse PLAN:: Lester remains acute level of care he is receiving IV antibioitcs for aspiration pneumonia. Plan will be for him to discharged home with his sposue on Friday pending improved WBC and toleration of oral abx. Referral to [facility] follow up CPAP and community resources.
[2018-09-26] MEDS: Magnesium Oxide 400 MG TAB PO (10:43)
[2018-09-26] MEDS: Mometasone 220 MCG 14 DOSE INHALER IH ×2 (10:43→20:03)
--- NOTE | 2018-09-26 14:22 | PGE_ITS ---
Date of Service Date of service: 09/26/18 Time of Service: 14:23 Assessment and Plan (1) Postprocedural aspiration pneumonitis: Start date: 09/26/18 Start time: 14:25 Current visit: Yes Status: Acute Greatly improved. Increase in white count, likely from steroids. Afebrile. LSC, no wheezing. Switched to PO augmentin. Ambulating in hw. No cough or sputum production. Monitor (2) Hypotension: Start date: 09/26/18 Start time: 14:26 Current visit: Yes Status: Acute Lactate normal. BP soft but in normal range, no dizziness or problems when ambulating. (3) GERD (gastroesophageal reflux disease): Start date: 09/26/18 Start time: 14:27 Current visit: No Status: Chronic Continue PPI (4) Asthma, intermittent: Start date: 09/26/18 Start time: 14:27 Current visit: No Status: Chronic No exacerbated at this time. No wheezing LSC D/C steroids. (5) Pleuritic chest pain: Start date: 09/26/18 Start time: 14:29 Current visit: Yes Status: Acute Resolved (6) DVT prophylaxis: Start date: 09/26/18 Start time: 14:29 Current visit: Yes Status: Acute lovenox (7) Discharge planning issues: Start date: 09/26/18 Start time: 14:29 Current visit: Yes Status: Acute Full code Subjective Patient reports: no new complaints Interval history since last seen: Switched from zosyn to augmentin. Increased in wbc on steroids. D/c steroids, no wheezing LSC. Keep overnight recheck wbc if trending down and afebrile discharge home with antiboitics. Exam Narrative Exam Narrative: General: Very pleasant male, AAOx3 ambulating in hw, no difficulty breathing observed, no difficulty completing sentences Neurological: A&Ox3, no focal deficits Psychiatric: appropriate speech pattern/content Skin: inact HEENT: Atraumatic, normocephalic, EOMI, dry MM, large neck diameter, no submandibular or cervical lymphadenopathy, no goiter or JVD Cardiovascular: RRR, no m/r/g Lungs: CTAB Gastrointestinal: abdomen is soft, mildly diffusely tender, no rebound, mildly distended Extremities: no e/c/c BLE's, +2 pedal pulses B Objective Objective Clinical Data: Abnormal lab results 08/02/19 08/02/19 08/02/19 Range/Units 14:15 14:15 14:15 WBC 14.00 H (4.4-10.8) k/cumm RBC (4.50-6.00) m/cumm Hgb (13.5-17.5) g/dL Hct (40.0-50.0) % Absolute Neutrophils 13.24 H (1.2-6.7) k/cumm Absolute Lymphocytes 0.39 L (1.2-3.4) k/cumm Absolute Monocytes (0.11-0.7) k/cumm BUN (7-18) mg/dL Glucose 142 H (70-100) mg/dL Lactate 2.7 H* (0.6-1.4) mmol/L Calcium (8.5-10.1) mg/dL Urine pH (5-8) 09/25/18 09/26/18 09/26/18 Range/Units 15:00 06:42 06:42 WBC 23.72 H D (4.4-10.8) k/cumm RBC 4.25 L (4.50-6.00) m/cumm Hgb 12.8 L (13.5-17.5) g/dL Hct 38.7 L (40.0-50.0) % Absolute Neutrophils 22.08 H (1.2-6.7) k/cumm Absolute Lymphocytes 0.78 L (1.2-3.4) k/cumm Absolute Monocytes 0.81 H (0.11-0.7) k/cumm BUN 21 H (7-18) mg/dL Glucose 145 H (70-100) mg/dL Lactate (0.6-1.4) mmol/L Calcium 8.2 L (8.5-10.1) mg/dL Urine pH 8.5 H (5-8) Vital Signs Temperature 36.6 C 09/26/18 11:40 Temperature Source Tympanic 09/26/18 11:40 Pulse 48 L 09/26/18 11:40 Pulse Rhythm Regular 09/26/18 07:35 Pulse 79 09/25/18 14:50 Respiratory Rate 18 09/26/18 11:40 Respiratory Effort 09/26/18 07:35 Respiratory Depth Normal 09/26/18 07:35 Respiratory Pattern Normal 09/26/18 07:35 Blood Pressure 109/67 09/26/18 11:40 Blood Pressure Mean 87 09/25/18 16:01 Pulse Oximetry 95 09/26/18 11:40 Oxygen Delivery Method Room Air 09/26/18 11:40 Oxygen Flow Rate 0 09/26/18 11:40 Pain Level 0 09/26/18 11:40 Comment 09/26/18 07:30 Intake & Output 09/25/18 09/26/18 09/26/18 23:59 11:59 23:59 Intake Total 2960 / 2960 2775.0 / 3070.0 295 / 3070.0 Output Total 1600 / 1600 1475 / 1475 Balance 1360 / 1360 1300.0 / 1595.0 295 / 1595.0 Weight 104.326 kg 106.9 kg Intake: IV 2360 / 2360 1415.0 / 1710.0 295 / 1710.0 Oral 600 / 600 1360 / 1360 Output: Urine 1600 / 1600 1475 / 1475 Other: Urine Color Yellow Yellow Urine Appearance Clear Clear Comment patient uses toilet independently IV hydration at 150cc/hr Voiding Methods Toilet Urinal Laboratory Results WBC 23.72 k/cumm (4.4-10.8) H D 09/26/18 06:42 RBC 4.25 m/cumm (4.50-6.00) L 09/26/18 06:42 Hgb 12.8 g/dL (13.5-17.5) L 09/26/18 06:42 Hct 38.7 % (40.0-50.0) L 09/26/18 06:42 MCV 91.1 fL (80-95) 09/26/18 06:42 MCH 30.1 pg (27.0-33.0) 09/26/18 06:42 MCHC 33.1 g/dL (32.0-36.0) 09/26/18 06:42 RDW 14.0 % (11.8-14.1) 09/26/18 06:42 Plt Count 156 x1000/uL (130-400) 09/26/18 06:42 MPV 10.7 fL (8.0-11.0) 09/26/18 06:42 Immature Gran % 0.2 09/26/18 06:42 93.1 09/26/18 06:42 3.3 09/26/18 06:42 3.4 09/26/18 06:42 0.0 09/26/18 06:42 0.0 09/26/18 06:42 Absolute Neutrophils 22.08 k/cumm (1.2-6.7) H 09/26/18 06:42 Absolute Lymphocytes 0.78 k/cumm (1.2-3.4) L 09/26/18 06:42 Absolute Monocytes 0.81 k/cumm (0.11-0.7) H 09/26/18 06:42 Absolute Eosinophils 0.00 k/cumm (0.0-0.7) 09/26/18 06:42 Absolute Basophils 0.00 k/cumm (0.0-0.2) 09/26/18 06:42 Agrees w/ instrument 09/26/18 06:42 Sodium 139 mmol/L (136-145) 09/26/18 06:42 Potassium 4.1 mmol/L (3.5-5.1) 09/26/18 06:42 Chloride 106 mmol/L (98-107) 09/26/18 06:42 Carbon Dioxide 26.2 mmol/L (21.0-32.0) 09/26/18 06:42 6.8 mmol/L (3-11) 09/26/18 06:42 BUN 21 mg/dL (7-18) H 09/26/18 06:42 1.07 mg/dL (0.70-1.30) 09/26/18 06:42 >= 60.00 (mL/min/1.73m2) 09/26/18 06:42 Glucose 145 mg/dL (70-100) H 09/26/18 06:42 1.4 mmol/l (0.6-1.4) 09/26/18 06:42 Calcium 8.2 mg/dL (8.5-10.1) L 09/26/18 06:42 Magnesium 1.8 mg/dL (1.8-2.4) 09/26/18 06:42 0.6 mg/dL (0.2-1.0) 09/25/18 14:15 AST 15 U/L (15-37) 09/25/18 14:15 ALT 23 U/L (12-78) 09/25/18 14:15 68 U/L (46-116) 09/25/18 14:15 7.5 g/dL (6.4-8.2) 09/25/18 14:15 3.7 g/dL (3.4-5.0) 09/25/18 14:15 1.0 ng/mL 09/26/18 06:42 Yellow (Yellow) 09/25/18 15:00 Clear (Clear) 09/25/18 15:00 8.5 (5-8) H 09/25/18 15:00 Ur Specific [place] 1.015 (1.005-1.025) 09/25/18 15:00 Negative mg/dL (Negative) 09/25/18 15:00 Negative mg/dL (Negative) 09/25/18 15:00 Negative (Negative) 09/25/18 15:00 Negative (Negative) 09/25/18 15:00 Negative (Negative) 09/25/18 15:00 0.2 EU/dL (Up TO 0.2) 09/25/18 15:00 Ur Leukocyte Esterase Negative (Negative) 09/25/18 15:00 Negative mg/dL (Negative) 09/25/18 15:00
[2018-09-26] MEDS: Enoxaparin 40 MG/0.4 ML SYR SC (18:25)
[2018-09-26] MEDS: Amoxicillin 875/Clav. 125 TAB PO (20:04)
[2018-09-27 06:53] LABS: Abs Immature Grans 0.07 k/cumm (0.0-0.09); Absolute Basophil Count 0.02 k/cumm (0.0-0.2); Absolute Eosinophil Count 0.08 k/cumm (0.0-0.7); Absolute Lymphocyte Count 2.57 k/cumm (1.2-3.4); Basophils % 0.1; Eosinophils % 0.4; HCT 38.6 % (40.0-50.0); HGB 12.7 g/dL (13.5-17.5); Immature Grans % 0.4; Lymphocytes % 13.5; Mean Corp. HGB Concentration 32.9 g/dL (32.0-36.0); Mean Corpuscular Volume 91.3 fL (80-95); Mean Platelet Volume 10.9 fL (8.0-11.0); Monocytes % 5.9; Neutrophils % 79.7; Platelet Count 160 x1000/uL (130-400); RBC 4.23 m/cumm (4.50-6.00); RBC Distribution Width 14.3 % (11.8-14.1); White Blood Cell Count 19.01 k/cumm (4.4-10.8)
[2018-09-27 06:56] LABS: Absolute Monocyte Count 1.12 k/cumm (0.11-0.7); Absolute Neutrophil Count 15.15 k/cumm (1.2-6.7)
[2018-09-27 07:01] LABS: Anion Gap 10.2 mmol/L (3-11); BUN 18 mg/dL (7-18); CO2 26.8 mmol/L (21.0-32.0); CREATININE 0.95 mg/dL (0.70-1.30); Calcium 8.2 mg/dL (8.5-10.1); Chloride 104 mmol/L (98-107); Glucose 112 mg/dL (70-100); Magnesium 1.9 mg/dL (1.8-2.4); Potassium 3.6 mmol/L (3.5-5.1); Sodium 141 mmol/L (136-145)
[2018-09-27 07:30] VITALS: BP 138/82; PULSE 48; RESP 18; TEMP 37; O2SAT 96
[2018-09-27] MEDS: Pantoprazole 40 MG TABCR PO (07:33)
[2018-09-27] MEDS: Amoxicillin 875/Clav. 125 TAB PO (07:34)
[2018-09-27] MEDS: Normal Saline Flush 10 ML SYR IVP (07:34)
[2018-09-27] MEDS: Mometasone 220 MCG 14 DOSE INHALER IH (10:00)
--- NOTE | 2018-09-27 10:36 | DSE_ITS ---
Date of service: 09/27/18 Time of Service: 10:37 DS: Diagnosis Discharge Diagnosis (1) Postprocedural aspiration pneumonitis: Start date: 09/27/18 Start time: 10:37 Status: Acute Asessment and Plan: Completed two day IV course. Transitioned to PO augmentin yesterday with WBC decreasing today. Lungs sounds clear, ambulating without difficulty. Recommend repeat CBC in 3 days with follow up with PCP in 1 week. Will be on 7 day course augmenten. (2) Hypotension: Status: Acute (3) GERD (gastroesophageal reflux disease): Status: Chronic (4) Asthma, intermittent: Status: Chronic (5) Pleuritic chest pain: Status: Acute (6) DVT prophylaxis: Status: Acute (7) Discharge planning issues: Status: Acute Discharge Plan Disposition Patient Disposition: HOME Condition: Good Discharge Details Chief Complaint: GenMedical Clinical Impression: Aspiration pneumonia Reason For Visit: ASPIRATION PNEUMONIA Admit Date/Time: 09/25/18 15:47 Admit Provider: Lala Ovalle Attending Provider: Lala Ovalle Primary Care Provider: Landon Almaguer [facility] Hospital Course: Mr. Frankel was admitted for aspiration pneumonia following a colonoscopy on 09/25. He was sedated, threw up after sedation went home and within hours had rigors, febrile and flu like sx. He had a nonproductive cough with an elevated lactate. He was admitted to med surg and started on Zosyn and IV fluids. He was also given steroids in the ED. Over the course of his hospitalization his lactate normalized in 24 hours. He was afebrile, he did have an increase in leukocytosis but likely attributed to steroids. He was transitioned to oral augmentin 24 hours after hospitalization his steroids were decreased and he was feeling remarkable with a decrease in leukocytosis. He was ambulating in the hallway, lung sounds clear, no cough, fever or sputum production. He was also found to have possible ileus by CT he did ambulate, never had any abdominal pain and had regular bm. Not concerning for obstruction. he feels ready to go home. He will be discharged home on augmentin 7 day course with repeat CBC and recommend follow up with PCP in 1 week. Denies CP, SOB, N/V/D. Home Meds and New Rx's Prescriptions: New amoxicillin-pot clavulanate 875-125 mg Tablet 1 tab PO BID Qty: 13 RF: 0 Continued omeprazole 20 MG capsule,delayed release(DR/EC) 20 mg PO DAILY RF: 0 Flovent HFA 120 PUFF HFA aerosol inhaler 1 puff Inhalation BID RF: 0 albuterol sulfate 8.5 GM HFA aerosol inhaler 2 puff Inhalation PRN PRNRF: 0 fluticasone propionate [Flonase] 16 GM spray,suspension 1 spry NS PRN PRNRF: 0 Discharge Instructions Instructions: Pneumonitis (GEN), Aspiration Pneumonia (GEN), How Your Lungs Work (DC) Additional Instructions: Take cetrizine daily for 30 days Follow up for lab work in 3 days Follow up with your primary provider in 1 week Use the incentive spirometer daily at least 10 times a day for at least 1 week. Seek medical attention immediately if you have Shortness of breath, nausea, vomiting, diarrhea or chest pain Stand Alone Forms: Nursing Discharge Form Referrals: Landon Almaguer [Primary Care Provider] - (Please call the office on Friday morning to schedule a follow up appointment to be seen within the week) Activity:: Activity as Tolerated Equipment/Supplies:: No Equipment Needed Diet:: As Tolerated Discharge Orders Discharge Orders: Discharge Order (Routine); Ordered 09/27/18 Ordered By: Maddie Aguilar Other Ambulatory Orders: Complete Blood Count w/Diff (Routine) Location: None Selected Ordered By: Maddie Aguilar Exam Narrative Exam Narrative: General: Very pleasant male, AAOx3 ambulating in hw, no difficulty breathing observed, no difficulty completing sentences Neurological: A&Ox3, no focal deficits Psychiatric: appropriate speech pattern/content Skin: inact HEENT: Atraumatic, normocephalic, EOMI, dry MM, large neck diameter, no submandibular or cervical lymphadenopathy, no goiter or JVD Cardiovascular: RRR, no m/r/g Lungs: CTAB Gastrointestinal: abdomen is soft, mildly diffusely tender, no rebound, mildly distended Extremities: no e/c/c BLE's, +2 pedal pulses B DS: Data Vitals/I&O Vitals and I&O: Vital Signs Temperature 36.3 C L 09/26/18 23:50 Temperature Source Tympanic 09/26/18 23:50 Pulse 48 L 09/26/18 23:50 Pulse Rhythm Regular 09/27/18 07:30 Pulse 79 09/25/18 14:50 Respiratory Rate 16 09/26/18 23:50 Respiratory Effort Non-Labored 09/27/18 07:30 Respiratory Depth Normal 09/27/18 07:30 Respiratory Pattern Normal 09/27/18 07:30 Blood Pressure 101/50 L 09/26/18 23:50 Blood Pressure Mean 87 09/25/18 16:01 Pulse Oximetry 97 09/26/18 23:50 Oxygen Delivery Method Room Air 09/26/18 23:50 Oxygen Flow Rate 0 09/26/18 23:50 Pain Level 0 09/26/18 23:50 Comment 09/26/18 11:50 Intake & Output 09/26/18 09/26/18 09/27/18 11:59 23:59 11:59 Intake Total 2775.0 / 3745.0 970 / 3745.0 1210 / 1210 Output Total 1475 / 3025 1550 / 3025 Balance 1300.0 / 720.0 -580 / 720.0 1210 / 1210 Weight 106.9 kg 106.4 kg Intake: IV 1415.0 / 1905.0 490 / 1905.0 Oral 1360 / 1840 480 / 1840 1210 / 1210 Output: Urine 1475 / 3025 1550 / 3025 Other: Urine Color Yellow Pale Yellow Urine Appearance Clear Clear Comment IV hydration at 150cc/hr told pateint now he is off IV fluids he can void into toilet indep. up to BR INDEp Stool Size Large Stool Characteristics Soft Formed Brown Voiding Methods Urinal Toilet Toilet Completed studies during hospitalization [Text1]: Patient Name: Lelia FRANKEL SR #: [id number]: ER Ordering Provider: : REG ER Primary Care Provider: Landon Almaguer Date of Exam: 09/25/18Sex: M : 1960Age: 57 Exam(s) EXAM: XR Chest, 2 Views EXAM DATE/TIME: 09/25/2018 3:48 PM CLINICAL HISTORY: 57 years old, male; Fever; Patient HX: Colonoscopy today 09/25/2018 TECHNIQUE: Imaging protocol: XR of the chest, 2 views. COMPARISON: CR XR CHEST 2V PA LATERAL 04/25/2018 10:16 PM FINDINGS: Lungs: Mild Opacity in the left base may represent atelectasis/pneumonia. Pleural space: Unremarkable. No pleural effusion. No pneumothorax. Heart/Mediastinum: Unremarkable. No cardiomegaly. Bones/joints: Degenerative changes in the thoracic spine IMPRESSION: Mild Opacity in the left base may represent atelectasis/pneumonia. COMPARISON: US RENAL ULTRASOUND(P) 06/05/2017 1:15 PM FINDINGS: Gastrointestinal tract: Dilated loops of small bowel may represent ileus or partial obstruction. Air in the colon. Intraperitoneal space: Normal. No free air. Bones/joints: Unremarkable for age. IMPRESSION: 1. Dilated loops of small bowel may represent ileus or partial obstruction. 2. Air in the colon. Labs on day of discharge: Labs from last 24 hours 09/27/18 09/27/18 09/26/18 06:40 06:40 06:42 WBC 19.01 H RBC 4.23 L Hgb 12.7 L Hct 38.6 L MCV 91.3 MCH 30.0 MCHC 32.9 RDW 14.3 H Plt Count 160 MPV 10.9 Immature Gran % 0.4 Neutrophils % 79.7 Lymphocytes % 13.5 Monocytes % 5.9 Eosinophils % 0.4 Basophils % 0.1 Absolute Neutrophils 15.15 H Absolute Lymphocytes 2.57 Absolute Monocytes 1.12 H Absolute Eosinophils 0.08 Absolute Basophils 0.02 Sodium 141 Potassium 3.6 Chloride 104 Carbon Dioxide 26.8 Anion Gap 10.2 BUN 18 Creatinine 0.95 Estimated GFR/1.73 m2 >= 60.00 Glucose 112 H Calcium 8.2 L Magnesium 1.9 Procalcitonin 1.0 Preliminary micro results at discharge 09/25/18 14:35 Blood Culture - Preliminary Blood NO GROWTH 24 HOURS 09/25/18 14:15 Blood Culture - Preliminary Blood NO GROWTH 24 HOURS [facility] Medical History Allergic rhinitis (Chronic) Asthma, intermittent (Chronic) Depression (Resolved) Diverticulosis (Acute) GERD (gastroesophageal reflux disease) (Chronic) Hx of wisdom tooth extraction (Acute) Hyperlipidemia (Chronic) Lactose intolerance (Chronic) Low back pain (Chronic) Renal cyst, right (Chronic) Sleep apnea (Chronic) Surgical History H/O vasectomy (Acute) Hx of arthroscopy of right knee (Acute) Hx of colonoscopy (Chronic) Hx of rhinoplasty (Acute) Family History Father Heart disease Diabetes Brother Stroke Mother Brain cancer Sister Lung cancer Diabetes Son Diabetes Social History Smoking/Tobacco Use Status: Never Alcohol Intake: current Alcohol Intake frequency: a few times a month Alcohol type: hard liquor Drug use: Never Details: alcohol last week 1 drink Do you feel safe at home: Yes Do you feel safe in your relationship?: Yes
[2018-09-27] MEDS: Potassium Chloride 20 MEQ TABCR 40 MEQ PO (10:58)
[2018-09-27] MEDS: Magnesium Oxide 400 MG TAB PO (10:59)
--- NOTE | 2018-09-27 12:27 | PDOC.CMDIS ---
- If Service Date Differs Date of service: 09/27/18 Time of Service: 12:27 LACE Index Scoring Tool - Questions: Length of Stay (in days): 3 Acuity (Admit via E.D.?): Yes E.D. Visits: 2 - Answers: Total Score: 8 Risk of Readmission: Low Risk Care Management Discharge Reason for Hospitalization: Aspiration pneumonia s/p colonoscopy Discharge Plan: Lester is beign discharged home today he will return home with his spouse,. CM referred him to RT to assist with CPAP who will continue to follow up with him as outpatient. Family has the pt assistance application and will complete and return to the business office. Lester will be discharged home on oral antibiotics and follow up with primary care. Patient/Family Education Needs: Discharge instructions, plan of care for follow up and ask me three self management. Services Needed at Discharge: DME Agency
== END 2018-09-27 11:12 | disposition home or self-care (01) | DRG 862 ==
LOC: ER 15:34 → MS 16:32
PROVIDERS: Admitting Provider Internal Medicine; Emergency Provider Nurse Practitioner Family; PCP Family Medicine; Visit Provider Internal Medicine
DX: T81.44XA Sepsis following a procedure, initial encounter (principal); J69.0 Pneumonitis due to inhalation of food and vomit; J95.89 Other postprocedural complications and disorders of respiratory system, not elsewhere classified; Y83.8 Other surgical procedures as the cause of abnormal reaction of the patient, or of later complication, without mention of misadventure at the time of the procedure; K21.9 Gastro-esophageal reflux disease without esophagitis; G47.33 Obstructive sleep apnea (adult) (pediatric); Z59.6 Low income; R07.81 Pleurodynia
CPT/HCPCS: 36415; 80048; 80053; 84145; 87040; 94640; 96361; 96365; 96375; 99223; 99233; 99239; 99285; J1650; NC; 71046; 74019; 81003; 83605; 83735; 85025; 99284; J1885; J2543; J2930; J7512

== ENCOUNTER 2018-09-30 01:21 | Outpatient (CLI) | payer OTHER, SELFPAY ==
[2018-09-30 11:52] LABS: Abs Immature Grans 0.06 k/cumm (0.0-0.09); Absolute Basophil Count 0.02 k/cumm (0.0-0.2); Absolute Eosinophil Count 0.26 k/cumm (0.0-0.7); Absolute Lymphocyte Count 1.73 k/cumm (1.2-3.4); Absolute Monocyte Count 0.76 k/cumm (0.11-0.7); Basophils % 0.2; Eosinophils % 3.1; HCT 43.3 % (40.0-50.0); HGB 14.4 g/dL (13.5-17.5); Immature Grans % 0.7; Lymphocytes % 20.5; Mean Corp. HGB Concentration 33.3 g/dL (32.0-36.0); Mean Corpuscular Volume 90.2 fL (80-95); Mean Platelet Volume 10.5 fL (8.0-11.0); Neutrophils % 66.5; Platelet Count 210 x1000/uL (130-400); White Blood Cell Count 8.43 k/cumm (4.4-10.8)
== END 2018-09-30 01:41 ==
PROVIDERS: PCP Family Medicine; Visit Provider Internal Medicine
DX: J95.89 Other postprocedural complications and disorders of respiratory system, not elsewhere classified (principal); J69.0 Pneumonitis due to inhalation of food and vomit
CPT/HCPCS: 36415; 85025

== ENCOUNTER 2018-12-23 02:22 | Outpatient (CLI) | payer OTHER, SELFPAY ==
[2018-12-24 10:11] LABS: Lyme Ab w Rflx to Lyme Confirm Negative
== END 2018-12-23 02:42 ==
PROVIDERS: PCP Family Medicine; Visit Provider Family Medicine
DX: L98.9 Disorder of the skin and subcutaneous tissue, unspecified (principal)
CPT/HCPCS: 36415; 86618

== ENCOUNTER 2019-09-30 02:20 | Outpatient (CLI) | payer OTHER, SELFPAY ==
[2019-09-30 07:34] LABS: Abs Immature Grans 0.02 10^3/uL (0.0-0.06); Absolute Basophil Count 0.04 10^3/uL (0.0-0.2); Absolute Eosinophil Count 0.36 10^3/uL (0.0-0.7); Absolute Lymphocyte Count 1.93 10^3/uL (1.2-3.4); Absolute Monocyte Count 0.66 10^3/uL (0.1-0.8); Absolute Neutrophil Count 3.87 10^3/uL (1.2-6.7); Basophils % 0.6; Eosinophils % 5.2; HCT 44.5 % (40.0-50.0); HGB 14.1 g/dL (13.5-17.5); Immature Grans % 0.3; Lymphocytes % 28.1; MCH 29.7 pg (27.0-33.0); MCHC 31.7 % (32.0-36.0); MCV 93.7 fL (80-95); MPV 10.5 fL (8.0-11.0); Monocytes % 9.6; Neutrophils % 56.2; Nucleated RBC 0 %; Platelet Count 185 10^3/uL (130-400); RBC 4.75 10^6/uL (4.36-5.78); RDW 13.1 % (11.8-14.1); WBC 6.88 10^3/uL (4.4-10.8)
[2019-09-30 07:43] LABS: Hemoglobin A1C 5.9 % (3.8-5.6)
[2019-09-30 08:36] LABS: Calculated LDL 138 mg/dL (<100); Cholesterol 198 mg/dL (<200); HDL Cholesterol 34 mg/dL (40-60); Triglyceride 131 mg/dL (<150)
[2019-10-01 08:42] LABS: PSA, Screening 0.4 ng/mL (0.0-3.5)
== END 2019-09-30 02:40 ==
PROVIDERS: PCP Family Medicine; Visit Provider Family Medicine
DX: D64.9 Anemia, unspecified (principal); Z00.00 Encounter for general adult medical examination without abnormal findings; Z12.5 Encounter for screening for malignant neoplasm of prostate
CPT/HCPCS: 36415; 80061; 84153; 83036; 85025

== ENCOUNTER 2019-10-12 09:50 | Outpatient (CLI) | payer OTHER, SELFPAY ==
--- NOTE | 2019-10-12 09:45 | DI.RAD_ITS ---
EXAM: XR KNEE RT 2V AP,LAT CLINICAL HISTORY: pain. TECHNIQUE: 2D digital imaging was performed. COMPARISON: CR RIGHT KNEE LIMITED 1 OR 2 VIEW from 11/28/2009 FINDINGS: BONES: No acute fracture is present. No bony destructive lesion is seen. JOINTS: The knee is normally aligned. No joint effusion is seen. There is narrowing of the patellof emoral joint. Periarticular spurring is seen throughout, greatest at the patella. SOFT TISSUE: Normal. IMPRESSION: [id number] degenerative changes, greatest at the patellofemoral joint.. DATA REPOSITORY: RADIATION DOSE DELIVERED:
== END 2019-10-12 10:10 ==
PROVIDERS: PCP Family Medicine; Referring Provider Family Medicine; Visit Provider Orthopaedic Surgery
DX: M17.11 Unilateral primary osteoarthritis, right knee (principal); M25.561 Pain in right knee
CPT/HCPCS: 73560

== ENCOUNTER 2019-12-16 01:17 | Emergency (ER) | payer OTHER, SELFPAY ==
[2019-12-16 01:22] VITALS: BP 166/98; PULSE 50; RESP 16; TEMP 36.4; O2SAT 99
--- NOTE | 2019-12-16 01:25 | ED.GENADUL_ITS ---
Discharge Plan Disposition Patient Disposition: HOME Condition: Stable Discharge Details Clinical Impression: Kidney stone on right side Primary Care Provider: Landon Almaguer ED Provider: Edwardo Rivera Home Meds and New Rx's Prescriptions: New ondansetron 4 mg tablet,disintegrating 4 mg PO Q8H PRN (Reason: nausea and vomiting) Qty: 30 RF: 0 oxycodone 5 mg tablet 5 mg PO Q6H PRN (Reason: pain) Qty: 12 RF: 0 tamsulosin [Flomax] 0.4 mg capsule 0.4 mg PO DAILY Qty: 14 RF: 0 Continued meloxicam 15 mg tablet 15 mg PO DAILY Qty: 30 RF: 5 omeprazole 20 MG capsule,delayed release(DR/EC) 20 mg PO DAILY RF: 0 Flovent HFA 120 PUFF HFA aerosol inhaler 1 puff Inhalation BID RF: 0 albuterol sulfate 8.5 GM HFA aerosol inhaler 2 puff Inhalation PRN PRNRF: 0 fluticasone propionate [Flonase] 16 GM spray,suspension 1 spry NS PRN PRNRF: 0 Discharge Instructions Instructions: Kidney Stones (ED) Additional Instructions: you can take 1000mg tylenol and 600mg ibuprofen every 6 hours for pain as needed if you develop fevers, severe worsening pain despite taking oxycodone or pe rsistent vomit return to the emergency department Referrals: August Shearer MD [ [facility] STAFF PHYSICIAN] - Medical Decision Making 59 yo male with history of hld, gerd, asthma, who comes in with complaints of acute onset of right lower back radiating to the abdomen pain starting at 830pm after feeling well all day. Denies any falls or trauma, has never had pain like this before. no chest pain/pressure, fevers, and no testicle pain or swelling. He arrives appearing uncomfortable. No cva tenderness, no abdominal tenderness localizes the pain in right lower back and oblique area. No rashes. Given acute onset of the pain suspect kidney stone, will obtain lab work and imaging to further evaluate. pt feels much improved, ct confirms kidney stone on the right near uvj junction with hydro. Awaiting lab work blood work shows no significant abnormality and he feels much better, awaiting UA Ua shows hematuria otherwise unremarkable, he continues to feel well and is HD stable. Will have him f/u with urology and return precautions given Differential Diagnosis Differential Diagnosis: kidney stone, back spasm, aaa Medical Records Medical records reviewed: Yes I reviewed the patient's medical records. Imaging Data Radiologic Study: Attestation: I personally reviewed and interpreted this imaging study as follows: Imaging: CT Scan Radiologist's impression: 3x3mm right kidney stone Lab Data Lab results reviewed: Yes I reviewed the patient's lab results. HPI General Mode of arrival: ambulatory . Date/Time Provider Initiated Documentation: 12/16/19 01:19 . Limitations to Documentation: no limitations . Information obtained by: patient . History of Present Illness 59 year old M presents to the emergency department with the chief complaint of back pain, described as moderate, No relieving factors improve symptom(s), No exacerbating factors reported . Related Data Home Medications Medication Instructions Recorded Confirmed Flovent HFA 1 puff INHALATION BID 01/02/13 12/16/19 albuterol sulfate 2 puff INHALATION PRN PRN 01/02/13 12/16/19 fluticasone propionate [Flonase] 1 spry NS PRN PRN 01/02/13 12/16/19 omeprazole 20 mg PO DAILY 01/02/13 12/16/19 meloxicam 15 mg tablet 15 mg PO DAILY #30 tab 10/12/19 12/16/19 ondansetron 4 mg PO Q8H PRN #30 tab 12/16/19 oxycodone 5 mg PO Q6H PRN #12 tab 12/16/19 tamsulosin [Flomax] 0.4 mg PO DAILY #14 cap 12/16/19 Previous Rx's Medication Instructions Recorded meloxicam 15 mg tablet 15 mg PO DAILY #30 tab 10/12/19 ondansetron 4 mg PO Q8H PRN #30 tab 12/16/19 oxycodone 5 mg PO Q6H PRN #12 tab 12/16/19 tamsulosin [Flomax] 0.4 mg PO DAILY #14 cap 12/16/19 Allergies Allergy/AdvReac Type Severity Reaction Status Date / Time lactose Allergy Verified 12/16/19 01:23 General Stated Complaint: Abd Prob JADA: 3 Review of Systems All systems reviewed & are unremarkable except as noted in HPI and below Constitutional Constitutional: Denies chills, Denies fever(s) and Denies weakness Cardiovascular Cardiovascular: Denies chest pain and Denies dyspnea Respiratory Respiratory: Denies dyspnea Gastrointestinal Gastrointestinal: Denies abdominal pain, Denies nausea and Denies vomiting Musculoskeletal Musculoskeletal: Denies joint swelling Neurologic Neurologic: Denies weakness Psychiatric Psychiatric: Denies depression [facility] Medical History (Updated 12/16/19 @ 02:16 by Edwardo Rivera MD) Allergic rhinitis Asthma, intermittent Depression Per pt has not been treated in years for depression. Diverticulosis GERD (gastroesophageal reflux disease) Hyperlipidemia Lactose intolerance Low back pain Renal cyst, right Sleep apnea Surgical History H/O vasectomy Hx of arthroscopy of right knee Hx of colonoscopy 09/25/18 Hx of rhinoplasty Hx of wisdom tooth extraction Family History Father Heart disease Diabetes type II Brother Stroke cerebral aneurysm rapture Mother Brain cancer Sister Lung cancer Diabetes Son Diabetes Social History Smoking/Tobacco Use Status: Never Alcohol Intake: current Alcohol Intake frequency: a few times a month Alcohol type: hard liquor Drug use: Never Do you feel safe at home: Yes Do you feel safe in your relationship?: Yes Exam Const General: other (uncomfortable) Orientation: alert HENAL Head: normal to inspection Ears: external ears normal General nose exam: external nose normal Mouth: moist mucous membranes Eyes General: appearance normal, both eyes and all related structures Neck Neck: normal visual inspection Resp Effort & Inspection: normal respiratory effort and able to speak in complete sentences Cardio Rate: regular rate GI Palpation: soft Skin General skin exam: no rashes or lesions noted Neuro General: patient alert and patient oriented x3 Extrem General: normal to inspection Psych Mental Status: mental status grossly normal Course Vital Signs Vital signs: Vital Signs Temperature 36.4 C L 12/16/19 01:22 Pulse 50 L 12/16/19 01:22 Respiratory Rate 16 12/16/19 01:22 Blood Pressure 166/98 H 12/16/19 01:22 Pulse Oximetry 99 12/16/19 01:22 Temperature 36.4 C L 12/16/19 01:22 Temperature Source Skin 12/16/19 01:22 Pulse 50 L 12/16/19 01:22 Respiratory Rate 16 12/16/19 01:22 Blood Pressure 166/98 H 12/16/19 01:22 Blood Pressure Position Sitting 12/16/19 01:22 Pulse Oximetry 99 12/16/19 01:22 Oxygen Delivery Method Room Air 12/16/19 01:22 Oxygen Flow Rate 0 12/16/19 01:22 Pain Level 10 12/16/19 01:22
[2019-12-16] MEDS: Normal Saline 1,000 ML 1000 ML IV (01:30)
[2019-12-16] MEDS: Ondansetron 4 MG/2 ML VIAL IVP (01:32)
[2019-12-16] MEDS: Ketorolac 15 MG/ML VIAL IVP (01:34)
[2019-12-16 01:40] LABS: Abs Immature Grans 0.07 10^3/uL (0.0-0.06); Absolute Basophil Count 0.04 10^3/uL (0.0-0.2); Absolute Lymphocyte Count 1.49 10^3/uL (1.2-3.4); Absolute Monocyte Count 0.82 10^3/uL (0.1-0.8); Basophils % 0.3; Eosinophils % 1.7; HCT 44.8 % (40.0-50.0); HGB 14.5 g/dL (13.5-17.5); Immature Grans % 0.6; Lymphocytes % 12.4; MCHC 32.4 % (32.0-36.0); MCV 92.6 fL (80-95); MPV 10.7 fL (8.0-11.0); Monocytes % 6.8; Neutrophils % 78.2; Nucleated RBC 0 %; Platelet Count 199 10^3/uL (130-400); RBC 4.84 10^6/uL (4.36-5.78); RDW 13.1 % (11.8-14.1); RDW-SD 44.5 fL; WBC 12.05 10^3/uL (4.4-10.8)
[2019-12-16 01:42] LABS: Absolute Neutrophil Count 9.42 10^3/uL (1.2-6.7)
[2019-12-16 01:51] LABS: ALT 18 U/L (16-63); AST 19 U/L (15-37); Albumin 4.4 g/dL (3.4-5.0); Alkaline Phosphatase 71 U/L (46-116); Anion Gap 7.3 mmol/L (3-11); BUN 25 mg/dL (7-18); Bilirubin, Direct 0.13 mg/dL (0.00-0.20); Bilirubin, Total 0.4 mg/dL (0.2-1.0); CO2 28.7 mmol/L (21.0-32.0); CREATININE 1.31 mg/dL (0.70-1.30); Calcium 9.2 mg/dL (8.5-10.1); Chloride 102 mmol/L (98-107); Estimated GFR 55.81 (mL/min/1.73m2); Glucose 137 mg/dL (74-106); Lipase 77 U/L (73-393); Magnesium 2.1 mg/dL (1.8-2.4); Potassium 4.3 mmol/L (3.5-5.1); Sodium 138 mmol/L (136-145)
--- NOTE | 2019-12-16 01:52 | DI.CT_ITS ---
EXAM: CT RENAL COLIC WO CLINICAL HISTORY: right flank pain. TECHNIQUE: Imaging Protocol: Axial computed tomography images with coronal and sagittal reformatted images were created and reviewed. CONTRAST MATERIAL: Noncontrast COMPARISON: No exams were available for comparison FINDINGS: ABDOMEN: Lung Bases: Normal where visualized. Liver: Normal density. No measurable mass. Gallbladder and biliary tract: No radiodense calculus or dilation. Pancreas: Normal density, no abnormal calcifications or inflammatory process. Spleen: Normal. Kidneys: Left: Normal size, contour and axis. No radiodense stones or obstructive uropathy. No masses seen. Right: Moderate hydronephrosis secondary to a 4 millimeter stone just proximal to the ureterovesical junction. There is some perinephric stranding. A 4 centimeter right renal cyst is noted. No additi onal stones are seen. Adrenal glands: No masses seen. Abdominal Aorta: Abdominal portion non-dilated. Minimal atherosclerotic changes. PELVIS: Bladder: Symmetric distention, no gross wall thickening. Bowel: No obstruction or bowel wall thickening. Sigmoid diverticulosis. No evidence of diverticuliti s. Normal appendix. Peritoneal cavity: No ascites, collection or mesenteric inflammatory response. Bones: Mild degenerative changes, greatest at L5-S1. IMPRESSION: Moderate right hydronephrosis secondary to 4 millimeter stone above the ureterovesical junction. No additional calculi. RADIATION DOSE DELIVERED: 1,241.12mGy.cm Total DLP DATA REPOSITORY: All CT scans at this facility are submitted to the National Radiology Data Registry (NRDR) Dose Index Registry (DIR) with the [employer] (ACR). RADIATION OPTIMIZATION: All CT scans at this facility use at least one of these dose optimization te chniques: automated exposure control; mA and/or kV adjustment per patient size (includes targeted exa ms where dose is matched to clinical indication); or iterative reconstruction.
[2019-12-16 01:54] LABS: PTT Activated 24.5 sec (21.0-31.4); Prothrombin Time 9.9 sec (9.3-11.0)
--- NOTE | 2019-12-16 02:00 | DI.VRAD_ITS ---
PROCEDURE INFORMATION: Exam: CT Abdomen And Pelvis Without Contrast Exam date and time: 12/16/2019 1:25 AM Age: 59 years old Clinical indication: Abdominal pain; Right; Patient HX: RT flank pain with nausea/vomiting x5.5 hrs. TECHNIQUE: Imaging protocol: Computed tomography of the abdomen and pelvis without contrast. Radiation optimization: All CT scans at this facility use at least one of these dose optimization techniques: automated exposure control; mA and/or kV adjustment per patient size (includes targeted exams where dose is matched to clinical indication); or iterative reconstruction. COMPARISON: US RENAL ULTRASOUND(P) 06/05/2017 1:15 PM FINDINGS: Liver: Normal. No mass. Gallbladder and bile ducts: Normal. No calcified stones. No ductal dilation. Pancreas: Normal. No ductal dilation. Spleen: Normal. No splenomegaly. Adrenals: Normal. No mass. Kidneys and ureters: Mlwh-oo-vqqbzjit right-sided hydronephrosis and hydroureter noted to the level of an obstructing tall right ureteral stone measuring 3 x 3 mm just proximal to. Simple renal cysts measure up to 4.4 cm on the right Stomach and bowel: Colonic diverticulosis is present without evidence for inflammation. Appendix: No evidence of appendicitis. Intraperitoneal space: Unremarkable. No free air. No significant fluid collection. Vasculature: Unremarkable. No abdominal aortic aneurysm. Lymph nodes: Unremarkable. No enlarged lymph nodes. Urinary bladder: Unremarkable as visualized. Reproductive: Unremarkable as visualized. Bones/joints: Unremarkable. No acute fracture. Soft tissues: Unremarkable. IMPRESSION: Uhbh-bf-pugetthr right-sided hydronephrosis and hydroureter noted to the level of an obstructing tall right ureteral stone measuring 3 x 3 mm just proximal to. Dictated and Authenticated by: Fermin Pal MD. Ordering:АНДРЕЙ Brooke MD
--- NOTE | 2019-12-16 02:01 | NUR.NOTE ---
Nursing Note: Patient reports a decreased in pain after toradol. Declines need for additional pain medication at this time.
[2019-12-16 02:08] LABS: ETHANOL BLOOD < 3.0 mg/dL (<3)
[2019-12-16 02:24] LABS: Bilirubin Negative (Negative); Blood Moderate (Negative); Clarity Clear (Clear); Glucose Negative (Negative); Ketones 15 mg/dL (Negative); Leukocyte Esterase Negative (Negative); Nitrite Negative (Negative); Specific Gravity 1.025 (1.005-1.025); Urobilinogen 0.2 EU/dL (Up TO 0.2); pH 8.5 (5-8)
[2019-12-16 02:32] LABS: Bacteria Negative HPF (Negative); Crystals Negative HPF (Negative); Epithelial Cells Few HPF (Negative); Mucus Trace (Negative); WBC 0-2 HPF (0-5)
[2019-12-16 02:33] LABS: C & S Indicated? No; Casts Negative LPF (Negative)
--- NOTE | 2019-12-16 02:41 | NUR.NOTE ---
referral to care management for follow up with Urology faxed. [facility] ED Nursing Note:
[2019-12-16 02:46] VITALS: BP 148/90; PULSE 49; RESP 16; O2SAT 98
--- NOTE | 2019-12-16 10:52 | PDOC.ERCMPRO ---
- If Service Date Differs Date of service: 12/16/19 Time of Service: 10:52 Care Management Progress Note Lester is seen in the ED for right lower back pain radiation to the abdomen. A renal CT reveals the presence of a kidney stone. At the request of ED provider, CM coordinates a referral to [facility] Urology to assist Lester in obtaining a follow up appointment. Lester has [employer] for insurance.
== END 2019-12-16 02:51 | disposition home or self-care (01) ==
PROVIDERS: Emergency Provider Emergency Medicine; PCP Family Medicine
DX: N13.2 Hydronephrosis with renal and ureteral calculous obstruction (principal)
CPT/HCPCS: 36415; 80053; 83690; 96361; 96374; 96375; 99284; 74176; 80320; 81003; 81015; 82248; 83735; 85025; 85610; 85730; J1885; J2405

== ENCOUNTER 2019-12-17 11:29 | Outpatient (CLI) | payer OTHER, SELFPAY ==
--- NOTE | 2019-12-17 09:15 | DI.RAD_ITS ---
EXAM: 2D digital imaging was performed. CLINICAL HISTORY: monitor known right distal ureteral stone N20.1 CALCULUS OF URETER. COMPARISON: CT CT RENAL COLIC WO from 12/16/2019 TECHNIQUE: Supine views of the abdomen performed. FINDINGS: BOWEL GAS PATTERN: Nondistended. Large quantity of stool. Bowel obscures the renal contours. Ther e is a calcific CALCIFICATIONS: No radiopaque calcifications. There is a calcification projecting in the right low pe lvis which is consistent with the stone seen on the previous CT. OSSEOUS STRUCTURES: Normal for age. OTHER FINDINGS: None. IMPRESSION: No change in position of right distal ureteral calculus. DATA REPOSITORY: RADIATION DOSE DELIVERED:
== END 2019-12-17 11:49 ==
PROVIDERS: PCP Family Medicine; Visit Provider Urology
DX: N20.1 Calculus of ureter (principal)
CPT/HCPCS: 74018

== ENCOUNTER 2020-11-02 02:50 | Outpatient (CLI) | payer OTHER, SELFPAY ==
[2020-11-02 08:34] LABS: Hemoglobin A1C 5.8 % (<5.7)
[2020-11-02 09:32] LABS: Calculated LDL 163 mg/dL (<100); Cholesterol 230 mg/dL (<200); HDL Cholesterol 45 mg/dL (40-60); Triglyceride 113 mg/dL (<150)
[2020-11-02 18:12] LABS: PSA, Screening 0.5 ng/mL (0.0-4.5)
== END 2020-11-02 02:51 | disposition home or self-care (01) ==
LOC: LBO 02:51
PROVIDERS: PCP Family Medicine; Visit Provider Family Medicine
DX: Z00.00 Encounter for general adult medical examination without abnormal findings (principal); Z13.1 Encounter for screening for diabetes mellitus; Z12.5 Encounter for screening for malignant neoplasm of prostate; E78.5 Hyperlipidemia, unspecified
CPT/HCPCS: 36415; 80061; 84153; 83036

== ENCOUNTER 2021-03-30 01:42 | Outpatient (CLI) | payer OTHER, SELFPAY | END 2021-03-30 01:43 | disposition home or self-care (01) | PROVIDERS: PCP Family Medicine; Visit Provider Family Medicine ==

== ENCOUNTER 2021-04-11 02:31 | Outpatient (CLI) | payer OTHER, SELFPAY ==
[2021-04-11 08:42] LABS: Calculated LDL 145 mg/dL (<100); Cholesterol 213 mg/dL (<200); HDL Cholesterol 59 mg/dL (40-60); Triglyceride 46 mg/dL (<150)
== END 2021-04-11 02:32 | disposition home or self-care (01) ==
LOC: LBO 02:31
PROVIDERS: PCP Family Medicine; Visit Provider Family Medicine
DX: E78.5 Hyperlipidemia, unspecified (principal)
CPT/HCPCS: 36415; 80061

== ENCOUNTER 2022-01-01 01:46 | Emergency (ER) | payer OTHER, SELFPAY ==
[2022-01-01 01:49] VITALS: BP 141/77; PULSE 92; RESP 16; TEMP 36.8; O2SAT 96
--- NOTE | 2022-01-01 02:00 | DI.RAD_ITS ---
Exam(s) XR CHEST 2V PA LATERAL EXAM: XR CHEST 2V PA LATERAL CLINICAL HISTORY: cough, r/o pneumonia TECHNIQUE: 2D digital imaging was performed of the chest. Two images were obtained. PA and lateral views were obtained. COMPARISON: CR XR CHEST 2V PA LATERAL from 09/25/2018 FINDINGS: MEDIASTINUM: Normal. HEART: Normal. PULMONARY VASCULATURE: Normal. LUNGS: No focal consolidating infiltrates. Question of mild interstitial disease in the lung bases. PLEURAL SPACE: No pleural effusion or pneumothorax. BONE:Within normal limits for the patient's age. OTHER FINDINGS:Normal. IMPRESSION: Question of an interstitial basilar infiltrate. Please correlate clinically. DATA REPOSITORY: RADIATION DOSE DELIVERED:
--- NOTE | 2022-01-01 02:13 | ED.GENADUL_ITS ---
Discharge Plan Disposition Patient Disposition: HOME Condition: Stable Discharge Details Clinical Impression: Cough Primary Care Provider: Landon Almaguer ED Provider: Valarie Madden Home Meds and New Rx's Prescriptions: New amoxicillin-pot clavulanate 875-125 mg tablet 1 tab PO BID 7 Days Qty: 14 0RF Continued meloxicam 15 mg tablet 15 mg PO DAILY Qty: 30 5RF tamsulosin [Flomax] 0.4 mg capsule 0.4 mg PO DAILY Qty: 14 0RF Rx Instructions: once daily for 14 days or until you pass the kidney stone omeprazole 20 MG capsule,delayed release(DR/EC) 20 mg PO DAILY fluticasone propionate [Flovent HFA] 120 PUFF HFA aerosol inhaler 1 puff Inhalation BID albuterol sulfate 8.5 GM HFA aerosol inhaler 2 puff Inhalation PRN PRN fluticasone propionate [Flonase] 16 GM spray,suspension 1 spry NS PRN PRN Discharge Instructions Instructions: Acute Cough (ED) Additional Instructions: There is no obvious evidence of pneumonia on your x-ray today but there may be findings noted by the radiologist when the final report is available. A prescription for antibiotics has been sent electronically to your pharmacy if pneumonia is confirmed or your symptoms do not improve or worsen.. Drink plenty of fluids and get plenty of rest. Take [id number] cough and cold medication as needed and directed. You can continue taking your Tessalon Perles as needed and directed for coughing. Follow-up with your primary care doctor in 1 week. Return to the emergency department with any worsening or new concerning symptoms. Discharge Data Discharge Date/Time-TO BE ENTERED AT DEPARTURE: 01/01/22 02:55 Discharge Physician: Valarie Madden Medical Decision Making 61-year-old male with a history of obesity, asthma, arthritis and GERD presents with cough for the past 3 days with intermittent shortness of breath. Blood pressure and heart rate minimally elevated. He has afebrile with normal respiratory rate and oxygen saturation. Normal ENT exam. Lungs clear throughout. Differential diagnosis includes viral URI with cough. History and presentation does not appear consistent with acute bronchitis and less likely pneumonia. Also consider GERD or allergies. Do not see an indication for breathing treatment or steroids at this time. Patient is requesting a chest x- ray. Chest x-ray reviewed and there is haziness in the bases bilaterally but no obvious area of consolidation. Patient would rather leave before final report of x-ray. A prescription for antibiotics has been sent electronically to his pharmacy to start if x-ray notes evidence of pneumonia or symptoms not improve or worsen. Advised to follow up with the primary care doctor for re-evaluation. Usual and customary return precautions given prior to discharge. X-ray resulted after patient discharge and noted likely an atypical versus viral infection but no evidence of lobar consolidation. Patient called at home and informed of findings. He was advised to hold on antibiotics unless symptoms do not improve or worsen and associated with sputum production, persistent fevers. Advised to use his albuterol inhaler at home as needed and directed for cough, shortness of breath or wheezing. Advised to increase fluids and rest. Medical Records Medical records reviewed: Yes I reviewed the patient's medical records. Imaging Data Radiologic Study: Radiologist's impression: XR Chest Exam date and time: 01/01/2022 2:13 AM Age: 61 years old Clinical indication: Patient HX: Cough, R/O pneumonia TECHNIQUE: Imaging protocol: Radiologic exam of the chest. Views: 2 views. COMPARISON: CR XR CHEST 2V PA LATERAL 09/25/2018 3:08 PM FINDINGS: Lungs: Subtle bibasilar and right mid lung interstitial airspace opacities which appear to be more peripheral in orientation. No lobar consolidation. Pleural spaces: No pleural effusion. No pneumothorax. Heart/Mediastinum: Cardiomediastinal contours within normal limits. Bones/joints: Multilevel thoracic spondylosis with increased kyphosis. No acute osseous finding. IMPRESSION: Subtle bibasilar and right mid lung interstitial airspace opacities. Correlate clinically for atelectasis and/or scarring versus atypical/viral infection. HPI General Mode of arrival: ambulatory . Date/Time Provider Initiated Documentation: 01/01/22 01:55 . Limitations to Documentation: no limitations . Information obtained by: patient . HPI Narrative: Patient is a 61-year-old male with a history of obesity, asthma and GERD who presents with cough for the past 3 days. Patient states that cough is mainly dry. He does admit to occasional shortness of breath. He states he [facility] and diagnosed with likely a virus and given Tessalon Perles which he has been taking without relief. He states he has had intermittent fevers with a T-max of 99. He states he has been eating and drinking normally. He denies any ear pain, sore throat, chest pain, vomiting or diarrhea. Related Data Home Medications Medication Instructions Recorded Confirmed albuterol sulfate 90 mcg/actuation 2 puff inhalation PRN PRN 01/02/13 01/01/22 aerosol inhaler fluticasone propionate 220 1 puff inhalation BID 01/02/13 01/01/22 mcg/actuation HFA aerosol inhaler (Flovent HFA) fluticasone propionate 50 1 spry NS PRN PRN 01/02/13 01/01/22 mcg/actuation nasal spray,suspension (Flonase) omeprazole 20 mg capsule,delayed 20 mg PO DAILY 01/02/13 01/01/22 release meloxicam 15 mg tablet 15 mg PO DAILY #30 tabs 10/12/19 01/01/22 tamsulosin 0.4 mg capsule (Flomax) 0.4 mg PO DAILY #14 caps 12/27/19 01/01/22 amoxicillin 875 mg-potassium 1 tab PO BID 7 days #14 tabs 01/01/22 clavulanate 125 mg tablet Previous Rx's Medication Instructions Recorded meloxicam 15 mg tablet 15 mg PO DAILY #30 tabs 10/12/19 tamsulosin 0.4 mg capsule (Flomax) 0.4 mg PO DAILY #14 caps 12/27/19 amoxicillin 875 mg-potassium 1 tab PO BID 7 days #14 tabs 01/01/22 clavulanate 125 mg tablet Allergies Allergy/AdvReac Type Severity Reaction Status Date / Time lactose Allergy Verified 01/01/22 01:56 General Stated Complaint: RespSymp JADA: 4 Review of Systems All systems reviewed & are unremarkable except as noted in HPI and below Constitutional Constitutional: Reports as per HPI, Denies chills and Reports fever(s) Eyes Eyes: Denies blurry vision ENT Ears, Nose, Mouth, and Throat: Denies dizziness, Denies sore throat and Denies throat swelling Cardiovascular Cardiovascular: Denies chest pain and Reports dyspnea Respiratory Respiratory: Reports cough and Reports dyspnea Gastrointestinal Gastrointestinal: Denies abdominal pain, Denies diarrhea and Denies vomiting Genitourinary Genitourinary: Denies hematuria and Denies dysuria Musculoskeletal Musculoskeletal: Denies back pain and Denies numbness Integumentary/Breasts Skin/Breast: Denies lesions and Denies rash Neurologic Neurologic: Denies dizziness, Denies localized weakness and Denies numbness Allergic/Immunologic Allergic/Immunologic: Denies throat swelling PFSH All Active Problems (Updated 01/01/22 @ 02:30 by Valarie Madden DO) Cough (Acute) Right distal ureteral calculus (Acute) Osteoarthritis of right knee (Acute) Knee pain (Acute) Pleuritic chest pain (Acute) Hypotension (Acute) Discharge planning issues (Acute) DVT prophylaxis (Acute) Sleep apnea (Chronic) Asthma, intermittent (Chronic) GERD (gastroesophageal reflux disease) (Chronic) Postprocedural aspiration pneumonitis (Acute) Encounter for screening colonoscopy (Acute) Medical History (Updated 01/01/22 @ 02:30 by Valarie Madden DO) Allergic rhinitis Diverticulosis Hyperlipidemia Lactose intolerance Low back pain Renal cyst, right Surgical History H/O vasectomy Hx of arthroscopy of right knee Hx of colonoscopy 09/25/18 Hx of rhinoplasty Hx of wisdom tooth extraction Family History Father Heart disease Diabetes type II Brother Stroke cerebral aneurysm rapture Mother Brain cancer Sister Lung cancer Diabetes Son Diabetes Social History Smoking/Tobacco Use Status: Never Smoking risk assessment performed?: Yes Alcohol Intake: current Alcohol Intake frequency: a few times a month Alcohol type: hard liquor Drug use: Never Do you feel safe at home: Yes Do you feel safe in your relationship?: Yes Exam Const General: cooperative, healthy appearing and no acute distress Orientation: alert, awake and oriented x3 HENMT Head: normal to inspection Ears: hearing grossly normal bilaterally, external ears normal and TM's normal bilaterally General nose exam: external nose normal Mouth: oral mucosae normal Throat: posterior oropharynx normal Eyes General: appearance normal, both eyes and all related structures Neck Neck: normal visual inspection Resp Effort & Inspection: normal respiratory effort and able to speak in complete sentences Auscultation: clear to auscultation bilaterally, no rhonchi and no wheezes Cardio Rate: regular rate Rhythm: regular rhythm Skin General skin exam: no rashes or lesions noted Neuro General: patient alert, patient awake and patient oriented x3 Motor: muscle tone normal throughout Extrem General: normal to inspection and full ROM Psych Appearance: grossly normal Affect: normal affect Course Vital Signs Vital signs: Vital Signs Temperature 98.2 F 01/01/22 01:49 Pulse 92 H 01/01/22 01:49 Respiratory Rate 16 01/01/22 01:49 Blood Pressure 141/77 H 01/01/22 01:49 Pulse Oximetry 96 01/01/22 01:49 Temperature 98.2 F 01/01/22 01:49 Pulse 92 H 01/01/22 01:49 Respiratory Rate 16 01/01/22 01:49 Respiratory Effort 01/01/22 01:54 Respiratory Depth Normal 01/01/22 01:54 Blood Pressure 141/77 H 01/01/22 01:49 Blood Pressure Position Sitting 01/01/22 01:49 Pulse Oximetry 96 01/01/22 01:49 Oxygen Delivery Method Room Air 01/01/22 01:49 Oxygen Flow Rate 0 01/01/22 01:49 Pain Level 3 01/01/22 01:49
--- NOTE | 2022-01-01 03:28 | DI.VRAD_ITS ---
PROCEDURE INFORMATION: Exam: XR Chest Exam date and time: 01/01/2022 2:13 AM Age: 61 years old Clinical indication: Patient HX: Cough, R/O pneumonia TECHNIQUE: Imaging protocol: Radiologic exam of the chest. Views: 2 views. COMPARISON: CR XR CHEST 2V PA LATERAL 09/25/2018 3:08 PM FINDINGS: Lungs: Subtle bibasilar and right mid lung interstitial airspace opacities which appear to be more peripheral in orientation. No lobar consolidation. Pleural spaces: No pleural effusion. No pneumothorax. Heart/Mediastinum: Cardiomediastinal contours within normal limits. Bones/joints: Multilevel thoracic spondylosis with increased kyphosis. No acute osseous finding. IMPRESSION: Subtle bibasilar and right mid lung interstitial airspace opacities. Correlate clinically for atelectasis and/or scarring versus atypical/viral infection. Dictated and Authenticated by: Jose Ren MD. Ordering:JACKELYN Sheppard MD
== END 2022-01-01 02:55 | disposition home or self-care (01) ==
PROVIDERS: Emergency Provider Physician Assistant; PCP Family Medicine
DX: R05.1 Acute cough (principal)
CPT/HCPCS: 99283; 71046

== ENCOUNTER → 2022-01-14 01:30 | Outpatient (CLI) | payer OTHER, SELFPAY ==
--- NOTE | 2022-01-14 07:43 | DI.RAD_ITS ---
Exam(s) XR CHEST 2V PA LATERAL EXAM: XR CHEST 2V PA LATERAL CLINICAL HISTORY: PNEUMONIA, J18.9, RECHECK, SLOW CLINICAL IMPROVEMENT, TREATED ANTIBIOTICS TECHNIQUE: 2D digital imaging was performed. COMPARISON: CR XR CHEST 2V PA LATERAL from 09/25/[address] RENAL COLIC WO from 12/16/2019 CR,XR XR CHEST 2V PA LATERAL from 01/01/2022 FINDINGS: HEART: Normal size. Aorta: Normal diameter. PULMONARY VASCULATURE: Normal. LUNGS: Suboptimally inflated on both views. Mild underlying chronic interstitial changes. Superimpo sed bilateral diffuse increased mainly interstitial opacities suspicious for pneumonitis. No focal a isrrael of consolidation. PLEURAL SPACE: No pleural effusion or pneumothorax. BONE:Degenerative changes in the spine. No compression fracture. IMPRESSION: Diffuse bilateral interstitial infiltrates. DATA REPOSITORY: RADIATION DOSE DELIVERED:
== END ==
PROVIDERS: PCP Family Medicine; Visit Provider Family Medicine
DX: J18.9 Pneumonia, unspecified organism (principal); R91.8 Other nonspecific abnormal finding of lung field
CPT/HCPCS: 71046

== ENCOUNTER 2022-01-30 03:46 | Outpatient (CLI) | payer OTHER, SELFPAY ==
[2022-01-30 13:01] LABS: Procalcitonin < 0.1 ng/mL
[2022-01-30 17:30] LABS: Rheumatoid Factor <8.6 IU/mL (<12.0)
[2022-01-31 09:04] LABS: Cyclic Citrullinated Peptide <2.5 U/mL (<5.0)
[2022-01-31 13:59] LABS: Fungitell Qualitative Negative (Negative); Fungitell Quantitative Value <31 pg/mL (<60 pg/mL)
[2022-02-01 13:58] LABS: ANA Interpretation Positive (Negative); ANA Titer Pattern 1:160 Speckled
[2022-02-01 19:09] LABS: Blastomyces Ag Result Not Detected; Blastomyces Ag Value Not Detected
== END 2022-01-30 03:47 | disposition home or self-care (01) ==
LOC: LBO 03:46
PROVIDERS: PCP Family Medicine; Visit Provider Student in an Organized Health Care Education/Training Program
DX: J45.909 Unspecified asthma, uncomplicated (principal); R93.89 Abnormal findings on diagnostic imaging of other specified body structures
CPT/HCPCS: 36415; 84145; 86200; 87449; 86038; 86431; 87385

== ENCOUNTER 2022-02-06 15:52 | Outpatient (CLI) | payer OTHER, SELFPAY ==
[2022-02-07 19:09] LABS: Scl 70 Antibodies, IgG <0.2 U
[2022-02-08 12:50] LABS: SS-A Antibody 0.9 Units (<20.0)
[2022-02-08 12:55] LABS: SS-B (La) Ab, IgG 3.1 Units (<20.0)
[2022-02-27 16:11] LABS: Anti-EJ Ab Negative (Negative); Anti-Jo-1 Ab <20 Units (<20); Anti-Ku Ab Negative (Negative); Anti-MDA-5 Ab (CADM-140) <20 Units (<20); Anti-Mi-2-Ab Negative (Negative); Anti-NXP-2 (P140) Ab <20 Units (<20); Anti-OJ Ab Negative (Negative); Anti-PL-12 Ab Negative (Negative); Anti-PL-7 Ab Negative (Negative); Anti-PM/Scl-100 Ab <20 Units (<20); Anti-SRP Ab Negative (Negative); Anti-SS-A 52kD Ab, IgG <20 Units (<20); Anti-TIF-1gamma Ab <20 Units (<20); Anti-U1 RNP Ab <20 Units (<20); Anti-U2 RNP Ab Negative (Negative); Anti-U3 RNP (Fibrillarin) Negative (Negative)
== END 2022-02-06 15:53 | disposition home or self-care (01) ==
LOC: LBO 15:53
PROVIDERS: PCP Family Medicine; Visit Provider Student in an Organized Health Care Education/Training Program
DX: J84.9 Interstitial pulmonary disease, unspecified (principal)
CPT/HCPCS: 36415; 83516; 86235

== ENCOUNTER 2022-03-04 10:41 | Outpatient (REF) | payer OTHER, SELFPAY ==
[2022-03-04 09:53] LABS: Source Nasal/Nares
[2022-03-04 10:43] LABS: COVID-19 PCR Negative (Negative)
== END 2022-03-04 10:42 | disposition home or self-care (01) ==
LOC: LBN 10:41
PROVIDERS: PCP Family Medicine; Visit Provider Student in an Organized Health Care Education/Training Program
DX: Z01.812 Encounter for preprocedural laboratory examination (principal); Z20.822 Contact with and (suspected) exposure to COVID-19
CPT/HCPCS: 87635

== ENCOUNTER 2022-03-05 06:13 | Day surgery (SDC) | payer OTHER, SELFPAY ==
[2022-03-05] VITALS (7 sets, daily range): BP systolic 102–172; BP diastolic 57–79; PULSE 49–61; RESP 14–22; TEMP 36.1–36.7; O2SAT 94–97; BMI 36.0
--- NOTE | 2022-03-05 06:22 | W.ANESPRE ---
General Info Date of Service Date Performed: 03/05/22 Height: 5 ft 7 in Weight: 104.326 kg Body Mass Index (BMI): 36.0 Surgical Procedure: Operation Date: 03/05/22 07:40 Proposed Procedure Side Surgeon p Bronchoscopy w/ZEINAB Monroy MD Meds Allergies and Home Medications Allergies Allergy/AdvReac Type Severity Reaction Status Date / Time lactose Allergy Verified 03/05/22 06:28 Home Medication Medication Instructions Recorded albuterol sulfate 90 mcg/actuation 2 puff inhalation PRN PRN 01/02/13 aerosol inhaler fluticasone propionate 220 1 puff inhalation BID 01/02/13 mcg/actuation HFA aerosol inhaler (Flovent HFA) fluticasone propionate 50 1 spry NS PRN PRN 01/02/13 mcg/actuation nasal spray,suspension (Flonase) omeprazole 20 mg capsule,delayed 20 mg PO DAILY 01/02/13 release meloxicam 15 mg tablet 15 mg PO DAILY #30 tabs 10/12/19 fluticasone propionate 230 2 puff inhalation BID #12 grams 01/25/22 mcg-salmeterol 21 mcg/actuation HFA inhaler (Advair HFA) Current Visit Medications: Current Medications Generic Name Dose Route Start Last Admin Trade Name Freq PRN Reason Stop Dose Admin Ringer's Solution 1,000 mls @ 80 mls/hr 03/05/22 06:00 IV 04/03/22 23:59 INFUSION TAMIR IV Miscellaneous Supplies 1 each 03/05/22 06:00 Iv Access IV 04/03/22 23:59 DIRECTED TAMIR Sodium Chloride 0 ml 03/05/22 06:00 Normal Saline Flush 10 Ml Syr IV 04/03/22 23:59 PRN PRN Sodium Chloride 0 ml 03/05/22 06:00 Normal Saline 10 Ml Vial IJ 04/03/22 23:59 DIRECTED PRN Sterile Water 0 ml 03/05/22 06:00 Water,Injection,Sterile 10 Ml Vial IJ 04/03/22 23:59 DIRECTED PRN PFSH Active Problems Active Problems: Problem Status Onset Code ILD (interstitial lung disease) J84.9 Asthma J45.909 Abnormal chest xray R93.89 Right distal ureteral calculus N20.1 Osteoarthritis of right knee M17.11 Knee pain M25.569 Pleuritic chest pain R07.81 Hypotension I95.9 Discharge planning issues Z02.9 DVT prophylaxis Z29.9 Sleep apnea G47.30 Asthma, intermittent J45.20 GERD (gastroesophageal reflux disease) K21.9 Postprocedural aspiration pneumonitis J95.4 Encounter for screening colonoscopy Z12.11 Depression F32.9 Medical History Medical History Allergic rhinitis Diverticulosis Hyperlipidemia Lactose intolerance Low back pain Renal cyst, right Surgical History Surgical History H/O vasectomy Hx of arthroscopy of right knee Hx of colonoscopy 09/25/18 Hx of rhinoplasty Hx of wisdom tooth extraction Tobacco Smoking/Tobacco Use Status: Never Alcohol Alcohol Intake: current Alcohol intake frequency: a few times a month Alcohol type: hard liquor Substance Use Substance use: Never Substance use type: does not use Vital Signs and Lab Results Vital Signs Most Recent Vital Signs in EMR: Temp Pulse Resp BP Pulse Ox 36.7 C 61 16 172/79 H 96 03/05/22 06:29 03/05/22 06:29 03/05/22 06:29 03/05/22 06:29 03/05/22 06:29 Lab Results Blood Type / Crossmatch: No Data to Display Complete Blood Count: No Data to Display Complete Metabolic Panel: No Data to Display Liver Function Panel: No Data to Display Coagulation Panel: No Data to Display Cardiac Panel: No Data to Display Arterial Blood Gas: No Data to Display Venous Blood Gas: No Data to Display Pancreas Panel: No Data to Display Thyroid Panel: No Data to Display Infectious Disease: Coronavirus (COVID-19)(PCR) Negative (Negative) 03/04/22 08:53 Coronavirus 2019 Source Nasal/Nares 03/04/22 08:53 Blood Cultures: No Data to Display Toxicology Panel: No Data to Display Imaging and Studies Imaging and Studies Study information below may be from another EMR and interpreted by another provider. Please see original notes in EMR for more complete details. Echocardiogram Summary: 02/14: LVEF 60%, no WMA. normal Rvfxn. PAS 28. Pulmonary Function Summary: 05/12: normal. Anesthesia Assessment and Plan Anesthesia History Personal History: No History of Anesthesia Complications Family History: No Family History of Anesthesia Complications Exercise Tolerance Exercise Tolerance: Metabolic Equivalents>4 Cardiac & Pulmonary Exam Cardiac Exam: Normal S1/S2 Heart Sounds Pulmonary Exam: Clear Bilateral Breath Sounds Implantable Cardiac Device Does patient have a Pacemaker or an ICD?: No Airway Exam Known Difficult Airway: No Mallampati Class: 3 Mouth Opening: Narrow (< 3cm) Thyromental Distance: Greater than 3 cm Neck Range of Motion: Full ROM Neck Circumference: Thick Teeth Condition: Normal Dentition ASA Classification ASA Score: ASA 2 Emergency Case?: No NPO Status NPO Status: NPO Clears >2 hours, Solids >8 hours Anesthesia Plan Resuscitation Status: Full Code Anesthesia Technique: General Anesthesia Airway Planned: Endotracheal Tube Monitors Used: Standard Monitors Preoperative Comments:: 61 yo male for bronch. Has had pneumonia over a month. Sig PMHx: asthma (Flovent, albuterol, states minimal rescue inhaler use), GERD (omeprazole, sleeps with a slight elevation), EDWARDO (no CPAP, never smoker, occ EtOH. Previous Anes: history of aspiration after colo (apparently burped during, when he got home developed chills and was admitted for a few days), PONV after colo which resolved with medicaiton.
[2022-03-05] MEDS: Lactated Ringers 1,000 ML 80 ML IV (07:20)
[2022-03-05] MEDS: Lidocaine 1% Pres-Free 30 ML VIAL (07:45)
--- NOTE | 2022-03-05 07:50 | PAPNONF_PTH ---
PATIENT: Lester Frankel SR LOC: [facility] U#:[id number] AGE/SX: 61/M ROOM: RE03/05/[address]: Doretha Monroy MD : 1960 BED: DIS: 03/05/2022 SPEC #: [id number] RECD: 03/05/22 12:51 STATUS: GORAN REQ #: [id number] LUMA: 03/05/22 07:[address]: Doretha Monroy DEPT: [facility] Cytology RECD BY: Kae Aguilar ENTERED: 03/05/22 12:51 SP TYPE: HEBER LOZANO DR: Landon Almaguer Tissues: 1 - BODY FLUID CYTO(NOT S/U/N/EM)[facility] Procedures: BODY FLUID CYTO(NOT SPU/UR/NIP/ENDOM)[facility] Comments: [id number] (TOTAL VOLUME = 20 ml, SENT FRESH) (REFRIGERATED)
--- NOTE | 2022-03-05 08:25 | W.PM.OP ---
Date of service: 03/05/22 Time of Service: 07:30 Operative Note Operative Note Refer to Anesthesia Record Procedure Description: Bronchoscopy Indication:Abnormal chest CT Procedure performed: Flexible bronchoscopy with BAL Sedation plan: General anesthesia Medications used: see separate documentation Informed consent was obtained after the risks and benefits or the procedure were discussed. The patient was sedated by anesthesia and I intubated the patient with an 8.5 cuffed ETT with a size 4 glydescope on first attempt and without complication. A proper and complete OR compliant time out was performed. The therapeutic 6.2mm Olympus bronchoscope was inserted through the endotracheal tube. The bronchoscope was inserted into the airways, were 2cc in total of 1% topical lidocaine was used the anesthetize the airways. The trachea was midline and without lesion or injury that was visible. The mucosa appeared normal and there were no signs of tracheobronchomalacia. The jessenia was sharp. All bronchial subsegments were visualized within each lobe and showed some anatomical variation and minimal white to clear secretion on the left. The right has slightly more white secretion that was easily suctioned. The RML and RLL did have mild erythema present and the RML did demonstrate collapse with suction. A bronchoalveolar lavage was performed in the RUL. A total of 120cc of saline was administered with a return of 45cc. The fluid was slightly cloudy in appearance with visible mucus plugs present. The bronchoscope was then removed and the case terminated. The patient was taken to PACU in stable condition. Samples collected:RUL BAL and bronchial washings Testing ordered:bacterial, fungal and AFB stain and cultures, cell diff, viral panel Complications:None Doretha Monroy MD Pulmonary & Critical Care Medicine
--- NOTE | 2022-03-05 12:51 | W.ANESPOSTOP ---
Postoperative Evaluation Date, Time and Location Date Performed: 03/05/22 Time Performed: 12:51 Patient Location: PACU (time of documentation not when he was post oped. ) Vital Signs Most Recent Imported Vital Signs: Most Recent Vital Signs Temp Pulse Resp BP Pulse Ox 36.2 C L 51 L 15 106/77 95 03/05/22 09:10 03/05/22 09:10 03/05/22 09:10 03/05/22 09:10 03/05/22 09:10 Pain Score Most Recent Pain Score: Most Recent Pain Score Pain Level 2 03/05/22 09:10 Assessment Mental Status: Awake (Alert & Oriented to Patient Baseline) Airway and Respiratory Function: Patent airway with normal (patient baseline) respiratory exam Cardiovascular Function: Hemodynamically Stable Hydration Status: Adequately Hydrated Nausea & Vomiting: No Nausea or Vomiting Pain: Pt. Denies Any Pain Peripheral Nerve Block: Patient did not receive a nerve block
[2022-03-05 20:46] LABS: Adenovirus DNA Result Negative (Negative); Metapneumovirus RNA Result Negative (Negative); Parainfluenza Type1 RNA Result Negative (Negative); Parainfluenza Type2 RNA Result Negative (Negative); Parainfluenza Type3 RNA Result Negative (Negative); Parainfluenza Type4 RNA Result Negative (Negative); Rhinovirus RNA Result Negative (Negative)
[2022-03-07 12:07] LABS: Gram Smear Result Neutrophils Present
[2022-03-11 09:36] LABS: Lymphocytes Fluid Relative 10 %; Mono/Macrophage Fluid Relative 83 %; Neutrophils Fluid Relative 7 %
[2022-03-11 09:37] LABS: Path Review Fluid, other See Comments
[2022-04-02 11:49] LABS: Fungus Smear No Fungi Seen
[2022-04-02 11:50] LABS: Fungus Smear No Fungi Seen
== END 2022-03-05 09:40 | disposition home or self-care (01) ==
PROVIDERS: PCP Family Medicine; Visit Provider Student in an Organized Health Care Education/Training Program
PROC: 0BJ08ZZ Inspection of Tracheobronchial Tree, Via Natural or Artificial Opening Endoscopic (ICD-10-PCS; CPT 31622; principal; 2022-03-05 07:30)
DX: R91.8 Other nonspecific abnormal finding of lung field (principal); J45.909 Unspecified asthma, uncomplicated; J18.9 Pneumonia, unspecified organism; I10 Essential (primary) hypertension; Z79.899 Other long term (current) drug therapy
CPT/HCPCS: 31624; 80162; 87070; 87102; 87107; 87116; 87205; 87206; 87632; 88104; J2250; J2405; J2704

== ENCOUNTER 2022-06-07 01:40 | Outpatient (CLI) | payer OTHER, SELFPAY ==
[2022-06-07] MEDS: Albuterol HFA 18 GM 200 PUFF INH IH (09:16)
--- NOTE | 2022-06-07 11:16 | W.PFT ---
Date of service: 06/07/22 Time of Service: 07:56 Pulmonary Function Test Result Indications: ILD Interpretation Spirometry: There is no airflow limitation. There is no significant bronchodilator response. Lung Volumes: Normal lung volumes Diffusion Capacity: Normal diffusion Airway Pressure: Normal airways resistance Impression Normal pulmonary function testing. Note: When compared to 05/12/18, there has been a slight decline in lung function Clinical Correlation therefore is recommended.
== END 2022-06-07 01:41 | disposition home or self-care (01) ==
LOC: RT 01:40
PROVIDERS: PCP Family Medicine; Visit Provider Student in an Organized Health Care Education/Training Program
DX: R94.2 Abnormal results of pulmonary function studies (principal)
CPT/HCPCS: 94060; 94726; 94729

== ENCOUNTER 2023-01-07 01:57 | Outpatient (CLI) | payer OTHER, SELFPAY ==
[2023-01-07 07:23] LABS: Abs Immature Grans 0.04 10^3/uL (0.0-0.06); Absolute Basophil Count 0.04 10^3/uL (0.0-0.2); Absolute Monocyte Count 0.68 10^3/uL (0.1-0.8); Absolute Neutrophil Count 4.17 10^3/uL (1.2-6.7); Basophils % 0.6; Eosinophils % 4.5; HCT 42.8 % (40.0-50.0); HGB 13.9 g/dL (13.5-17.5); Immature Grans % 0.6; Lymphocytes % 22.3; MCH 30.1 pg (27.0-33.0); MCHC 32.5 % (32.0-36.0); MCV 93 fL (80-95); MPV 10.2 fL (8.0-11.0); Monocytes % 10.1; Neutrophils % 61.9; Platelet Count 178 10^3/uL (130-400); RBC 4.62 10^6/uL (4.36-5.78); RDW-SD 44.1 fL; WBC 6.73 10^3/uL (4.4-10.8)
[2023-01-07 07:48] LABS: ALT 20 U/L (16-63); AST 16 U/L (15-37); Albumin 3.9 g/dL (3.4-5.0); Alkaline Phosphatase 78 U/L (46-116); Anion Gap 6.2 mmol/L (3-11); BUN 26 mg/dL (7-18); Bilirubin, Total 0.5 mg/dL (0.2-1.0); CO2 30.8 mmol/L (21.0-32.0); Calculated LDL 153 mg/dL (<100); Chloride 103 mmol/L (98-107); Cholesterol 218 mg/dL (<200); Estimated GFR 84.57 (mL/min/1.73m2); Glucose 108 mg/dL (74-106); HDL Cholesterol 45 mg/dL (40-60); Potassium 4.1 mmol/L (3.5-5.1); Sodium 140 mmol/L (136-145); TSH 3.09 uIU/mL (0.36-3.74); Total Protein 7.5 g/dL (6.4-8.2); Triglyceride 101 mg/dL (<150)
[2023-01-07 08:15] LABS: Hemoglobin A1C 5.7 % (<5.7)
[2023-01-07 18:29] LABS: PSA, Screening 0.4 ng/mL (<=4.5)
== END 2023-01-07 01:58 | disposition home or self-care (01) ==
LOC: LBO 01:58
PROVIDERS: PCP Family Medicine; Visit Provider Family Medicine
DX: R53.83 Other fatigue (principal); R73.09 Other abnormal glucose; Z12.5 Encounter for screening for malignant neoplasm of prostate; E55.9 Vitamin D deficiency, unspecified
CPT/HCPCS: 36415; 80053; 80061; 82306; 84153; 83036; 84443; 85025

== ENCOUNTER 2023-07-31 01:12 | Emergency (ER) | payer OTHER, SELFPAY ==
[2023-07-31 01:15] VITALS: BP 213/83; PULSE 55; RESP 16; TEMP 36.4; O2SAT 99
--- NOTE | 2023-07-31 01:15 | DI.CT_ITS ---
Exam(s) CT ABDOMEN PELVIS WO EXAM: CT ABDOMEN PELVIS WO CLINICAL HISTORY: rlq pain, hx of stones. TECHNIQUE: Imaging Protocol: Axial computed tomography images with coronal and sagittal reformatted images were created and reviewed CONTRAST MATERIAL: Intravenous: none Oral: None COMPARISON: CT CT RENAL COLIC WO from 12/16/2019 FINDINGS: VISUALIZED LUNG BASES: No nodules nor pleural effusions evident. ABDOMEN: There is no ascites. LIVER: There are no obvious focal hepatic lesions evident of this noninfused study. GALLBLADDER/BILIARY: No obvious gallbladder pathology. CBD is not dilated. PANCREAS: No evidence of pancreatic mass nor dilatation of the pancreatic duct. SPLEEN: Spleen is not enlarged. No obvious intrasplenic lesions. ADRENALS: There are no significant adrenal masses. KIDNEYS:Left kidney unremarkable. Right kidney is again noted to contain a cyst in the lateral theo x measuring 4.6 cm. This does not require further investigation similar to previous. No solid morelia s and no intrarenal calculi but there is hydronephrosis and perinephric streaking around the right ki dney, similar to November 2019 and there is mild prominence of the right ureter. There is an intramur al 4-5 millimeter calculus in the right ureterovesical junction at bladder level. No other calculi i n the urinary bladder. Bladder otherwise appears unremarkable. Left ureter is not dilated. No loyd ining radiopaque calculi seen in either kidney. No solid renal masses.. ABDOMINAL AORTA: Abdominal aorta is not enlarged. LYMPH NODES: There is no retroperitoneal nor paraaortic adenopathy. ABDOMINAL WALL: No evidence of significant anterior abdominal wall nor inguinal hernia. GI: There is no evidence of bowel obstruction, free air, nor abscess. PELVIS: LYMPH NODES: There is no intrapelvic nor inguinal adenopathy. GI: No evidence of appendicitis.Sigmoid diverticulosis no evidence of acute diverticulitis. URINARY BLADDER: As above. REPRODUCTIVE: Prostate size normal. Seminal vesicles unremarkable. OSSEOUS: No significant osseous lesions. No fracture narrowing in the lower lumbar spine. IMPRESSION: 1. The main acute finding here is obstructing right-sided urinary calculus at the intramural aspect o f the right ureterovesical junction bladder level. The culprit calculus measures 4-5 mm. No other r adiopaque calculi seen in either collecting system nor within the urinary bladder. RADIATION DOSE DELIVERED: 1,264.91mGy.cm Total DLP DATA REPOSITORY: All CT scans at this facility are submitted to the National Radiology Data Registry (NRDR) Dose Index Registry (DIR) with the [employer] (ACR). RADIATION OPTIMIZATION: All CT scans at this facility use at least one of these dose optimization te chniques: automated exposure control; mA and/or kV adjustment per patient size (includes targeted exa ms where dose is matched to clinical indication); or iterative reconstruction.
[2023-07-31 01:24] VITALS: BP 213/83; PULSE 55; RESP 16; TEMP 36.4; O2SAT 99
[2023-07-31 01:47] LABS: Bilirubin Negative (Negative); Blood Moderate (Negative); Clarity Clear (Clear); Glucose Negative (Negative); Ketones Trace mg/dL (Negative); Leukocyte Esterase Negative (Negative); Nitrite Negative (Negative); Specific Gravity >= 1.030 (1.005-1.025); Urobilinogen 0.2 mg/dL (Up to 0.2); pH 5.5 (5-8)
--- NOTE | 2023-07-31 01:54 | ED.GENADUL_ITS ---
Discharge Plan Disposition Patient Disposition: Home Condition: Good Discharge Details Clinical Impression: Kidney stone Primary Care Provider: Landon Almaguer ED Provider: Lorenzo Pizarro Home Meds and New Rx's Prescriptions: New tamsulosin [Flomax] 0.4 mg capsule 0.4 mg PO DAILY Qty: 7 0RF No Action meloxicam 15 mg tablet 15 mg PO DAILY Qty: 30 5RF fluticasone propion-salmeterol [Advair HFA] 115-21 mcg/actuation HFA aerosol inhaler 2 puff inhalation BID Qty: 12 12RF omeprazole 20 MG capsule,delayed release(DR/EC) 20 mg PO DAILY albuterol sulfate 8.5 GM HFA aerosol inhaler 2 puff Inhalation PRN PRN fluticasone propionate [Flonase] 16 GM spray,suspension 1 spry NS PRN PRN Discharge Instructions Instructions: Kidney Stones (ED) Additional Instructions: At this time you have evidence of a small kidney stone. This is likely the cause of your symptoms. This should pass within the next 12 to 48 hours, if not earlier. Please drink plenty of fluids, 10 to 12 cups/day at least. Please take 800 mg of ibuprofen every 6 hours and 1000 mg of Tylenol every 6 hours as needed for pain. These are the maximum doses of these medicines. Please take the Flomax as directed. This will help in expediting the passage of your kidney stone. If your pain stops, you can stop taking the Flomax. Please strain your urine to collect the stone. This can then be analyzed by your family doctor. If you do not have resolution of your symptoms after 48 to 72 hours please follow-up closely with your family doctor or return here for reassessment. If you notice any worsening of your symptoms, or any new symptoms such as inability to urinate, vomiting, diarrhea, fever, chills, shortness of breath, chest pain, numbness, weakness, or fainting , please return immediately to the emergency department for reevaluation. Please follow up with your primary care provider as soon as possible for reassessment and reevaluation. As always, it was a pleasure participating in your medical care today. Referrals: Landon Almaguer [Primary Care Provider] - [facility] General Date/Time Provider Initiated Documentation: 07/31/23 01:21 . HPI Narrative: 62-year-old male with a past medical history of GERD, kidney stones, depression, presents today for evaluation of right flank pain. Patient states that few hours ago he developed right lower quadrant pain and right flank pain. He has nausea but denies vomiting. He admits to a burning sensation in his bladder. Pain radiates from the right flank to the right lower quadrant to the groin area. He denies any recent trauma. He denies fever or chills. He states that this does not feel as severe as his last kidney stone. He denies any hematuria. No other complaints at this time Related Data Home Medications Medication Instructions Recorded Confirmed albuterol sulfate 90 mcg/actuation 2 puff inhalation PRN PRN 01/02/13 07/31/23 aerosol inhaler fluticasone propionate 50 1 spry NS PRN PRN 01/02/13 07/31/23 mcg/actuation nasal spray,suspension (Flonase) omeprazole 20 mg capsule,delayed 20 mg PO DAILY 01/02/13 07/31/23 release meloxicam 15 mg tablet 15 mg PO DAILY #30 tabs 10/12/19 07/31/23 fluticasone propionate 115 2 puff inhalation BID #12 grams 09/06/22 07/31/23 mcg-salmeterol 21 mcg/actuation HFA inhaler (Advair HFA) tamsulosin 0.4 mg capsule (Flomax) 0.4 mg PO DAILY #7 caps 07/31/23 Previous Rx's Medication Instructions Recorded meloxicam 15 mg tablet 15 mg PO DAILY #30 tabs 10/12/19 fluticasone propionate 115 2 puff inhalation BID #12 grams 09/06/22 mcg-salmeterol 21 mcg/actuation HFA inhaler (Advair HFA) tamsulosin 0.4 mg capsule (Flomax) 0.4 mg PO DAILY #7 caps 07/31/23 Allergies Allergy/AdvReac Type Severity Reaction Status Date / Time lactose Allergy unknown Verified 07/31/23 01:19 General Stated Complaint: Urinary JADA: 3 Review of Systems All systems reviewed & are unremarkable except as noted in HPI and below Exam Narrative Exam Narrative: 1.Const: Well-nourished, Well-developed, appearing stated age 2.Eyes: PERRL, no conjunctival injection, and symmetrical lids. 3.ENT: Atraumatic external nose and ears. Moist MM. Neck: Symmetric, trachea midline, No thyromegaly. 4.CVS: +S1/S2, No murmurs or gallops. Peripheral pulses 2+ and equal in all ex tremities. Brisk capillary refill in all extremities. 5.RESP: Unlabored respiratory effort. Clear to auscultation bilaterally. No wheezes rales or rhonchi 6.GI: Soft, Nontender/Nondistended, No hepatosplenomegaly. No guarding or rebound. Mild right CVA tenderness, minimal right lower quadrant tenderness is reproducible. No genital pain or tenderness. 7.MSK: Normocephalic/Atraumatic, Extremities w/o deformity or ttp No cyanosis or clubbing, Normal movement of all extremities 8.Skin: Warm, Dry. No rashes or lesions. 9.Neuro: merchandising consultant II-XII grossly intact. Sensation grossly intact, no focal neurologic deficits. 10.Psych: (AAO) x3. Appropriate mood and affect Course Vital Signs Vital signs: Vital Signs Temperature 36.4 C L 07/31/23 01:15 Pulse 55 L 07/31/23 01:15 Respiratory Rate 16 07/31/23 01:15 Blood Pressure 213/83 H 07/31/23 01:15 Pulse Oximetry 99 07/31/23 01:15 Temperature 36.4 C L 07/31/23 01:24 Temperature Source Skin 07/31/23 01:24 Pulse 55 L 07/31/23 01:24 Respiratory Rate 16 07/31/23 01:24 Respiratory Effort Normal, Non-Labored 07/31/23 01:21 Blood Pressure 213/83 H 07/31/23 01:24 Blood Pressure Position Sitting 07/31/23 01:24 Pulse Oximetry 99 07/31/23 01:24 Oxygen Delivery Method Room Air 07/31/23 01:24 Oxygen Flow Rate 0 07/31/23 01:15 Pain Level 8 07/31/23 01:24 Medical Decision Making 62-year-old male with a past medical history of GERD, kidney stones, depression, presents today for evaluation of right flank pain. Patient states that few hours ago he developed right lower quadrant pain and right flank pain. He has nausea but denies vomiting. He admits to a burning sensation in his bladder. Pain radiates from the right flank to the right lower quadrant to the groin area. He denies any recent trauma. He denies fever or chills. He states that this does not feel as severe as his last kidney stone. He denies any hematuria. No other complaints at this time Exam demonstrates well-appearing male, no fever. Vital signs stable aside for hypertension. Concern for kidney stone, appendicitis, urolithiasis/urinary tract infection. Will get a CT scan, check urine, check labs, treat the patient's pain with Flomax and Toradol, rehydrate, monitor closely and reassess. 5:[address] scan results have returned, there is an obstructing right urinary stone at the level of the right ureterovesicular junction. It is only 4 mm. Laboratory workup shows no white count or bandemia. Renal function stable, creatinine slightly elevated at 1.5, BUN 37. Patient has urinated twice, pain is resolved and he feels much better. He feels well and would like to go home. Urinalysis shows blood but no evidence of WBCs leuk esterase or nitrites. No evidence to suggest infection. Symptoms appear consistent with urolithiasis. Suspect that he may have already passed the stone at this stage. Will send a prescription for Flomax for home. Recommend continued NSAIDs at home. Patient will follow- up outpatient with Dr. Shearer. Patient otherwise stable for discharge. Discussed red flags for which to return. I have extensively reviewed the treatment plan and discharge instructions with the patient and their family. I have addressed all patient concerns at this time. The patient and family was made aware of what symptoms to monitor for that would warrant a return to the emergency department. Discussed the plan with the patient and family, they demonstrate verbal understanding and agreement with our assessment and plan at this time. The documentation in this chart was dictated using [employer] dictation software. Please excuse any dictation errors. FINDINGS: Lungs: Left basilar atelectasis. Heart: Base of heart is unremarkable as visualized. Liver: Normal. No mass. Gallbladder and bile ducts: Normal. No calcified stones. No ductal dilation. Pancreas: Fatty atrophy of the pancreas. Spleen: Splenule is noted. Adrenal glands: Normal. No mass. Kidneys and ureters: Moderate right hydronephrosis with [id number]-left perinephric stranding. Right ureterectasis to the level of the ureterovesicular junction. At the right ureterovesicular junction there is a 4 mm stone. Stomach and bowel: Sigmoid diverticulosis without evidence of diverticulitis. Appendix: Appendix is not well visualized, no secondary evidence of appendicitis. Intraperitoneal space: Unremarkable. No free air. No significant fluid collection. Vasculature: Minimal scattered calcified atherosclerotic disease of the lower abdominal aorta and its major branches. Lymph nodes: Left upper quadrant central mesenteric root fat stranding with prominent lymph nodes which has decreased in prominence from study performed on 12/16/2019 Urinary bladder: Unremarkable as visualized. Reproductive: Unremarkable as visualized. Bones/joints: Diffuse degenerative change of the visualized osseous structures, moderate. Soft tissues: Unremarkable. IMPRESSION: 1. Obstructing right urinary stone at the level of the right ureterovesicular junction with details above. 2. Additional findings as above. Thank you for allowing us to participate in the care of your patient. Dictated and Authenticated by: Dangelo Rollins DO 07/31/2023 4:33 AM Eastern Time ([place] & [place]) Quality:SDOH Health Related Social Needs: No Data to Display PFSH All Active Problems (Updated 07/31/23 @ 05:00 by Lorenzo Pizarro DO) Kidney stone (Chronic) Post-nasal drip (Acute) Organizing pneumonia (Acute) ILD (interstitial lung disease) (Acute) Asthma (Chronic) Abnormal chest xray (Acute) Osteoarthritis of right knee (Acute) Knee pain (Acute) Pleuritic chest pain (Acute) Hypotension (Acute) Discharge planning issues (Acute) DVT prophylaxis (Acute) Sleep apnea (Chronic) Asthma, intermittent (Chronic) GERD (gastroesophageal reflux disease) (Chronic) Postprocedural aspiration pneumonitis (Acute) Encounter for screening colonoscopy (Acute) Medical History Kidney stone on right side Diverticulosis Lactose intolerance Allergic rhinitis Hyperlipidemia Low back pain Renal cyst, right Surgical History Hx of wisdom tooth extraction H/O vasectomy Hx of arthroscopy of right knee Hx of rhinoplasty Hx of colonoscopy 09/25/18 Family History Father Heart disease Diabetes type II Brother Stroke cerebral aneurysm rapture Mother Brain cancer Sister Lung cancer Diabetes Son Diabetes Social History Smoking/Tobacco Use Status: Never Smoking risk assessment performed?: Yes Alcohol Intake: current Alcohol Intake frequency: a few times a month Alcohol type: hard liquor Drug use: Never Substance use type: does not use Do you feel safe at home: Yes Do you feel safe in your relationship?: Yes Additional Social history: unable to assess privately
[2023-07-31 01:56] LABS: Abs Immature Grans 0.03 10^3/uL (0.0-0.06); Absolute Basophil Count 0.04 10^3/uL (0.0-0.2); Absolute Eosinophil Count 0.19 10^3/uL (0.0-0.7); Absolute Lymphocyte Count 1.18 10^3/uL (1.2-3.4); Absolute Monocyte Count 0.85 10^3/uL (0.1-0.8); Absolute Neutrophil Count 6.46 10^3/uL (1.2-6.7); Basophils % 0.5 %; Eosinophils % 2.2 %; HCT 42.3 % (40.0-50.0); Immature Grans % 0.3 %; Lymphocytes % 13.5 %; MCH 30.3 pg (27.0-33.0); MCHC 33.1 % (32.0-36.0); MCV 92 fL (80-95); MPV 10.5 fL (8.0-11.0); Monocytes % 9.7 %; Neutrophils % 73.8 %; Platelet Count 178 10^3/uL (130-400); RBC 4.62 10^6/uL (4.36-5.78); RDW 13.3 % (11.8-14.1); RDW-SD 45.4 fL; WBC 8.75 10^3/uL (4.4-10.8)
[2023-07-31] MEDS: Lactated Ringers 1,000 ML 1000 ML IV (01:56)
[2023-07-31] MEDS: Ketorolac 15 MG/ML VIAL IVP (01:56)
[2023-07-31] MEDS: Tamsulosin 0.4 MG CAPCR 0.8 MG PO (01:57)
[2023-07-31] MEDS: Ondansetron 4 MG/2 ML VIAL IVP (01:57)
[2023-07-31 02:02] LABS: WBC 0-2 HPF (0-5)
[2023-07-31 02:03] LABS: Bacteria Rare HPF (Negative); C & S Indicated? No; Crystals Rare Calcium Oxalate HPF (Negative); Epithelial Cells Negative HPF (Negative); Mucus Negative (Negative)
[2023-07-31 02:13] LABS: ALT 27 U/L (16-63); AST 22 U/L (15-37); Albumin 4.1 g/dL (3.4-5.0); Alkaline Phosphatase 82 U/L (46-116); Anion Gap 10.7 mmol/L (3-11); BUN 37 mg/dL (7-18); Bilirubin, Total 0.5 mg/dL (0.2-1.0); CO2 27.3 mmol/L (21.0-32.0); CREATININE 1.5 mg/dL (0.70-1.30); Calcium 8.8 mg/dL (8.5-10.1); Chloride 103 mmol/L (98-107); Estimated GFR 51.99 (mL/min/1.73m2); Glucose 140 mg/dL (74-106); Lipase 25 U/L (16-77); Potassium 3.9 mmol/L (3.5-5.1); Sodium 141 mmol/L (136-145); Total Protein 7.6 g/dL (6.4-8.2)
[2023-07-31] MEDS: ACETAMINOPHEN 1,000 MG/100 ML BTL 400 MG IVPB (03:21)
--- NOTE | 2023-07-31 04:33 | DI.VRAD_ITS ---
PROCEDURE INFORMATION: Exam: CT Abdomen And Pelvis Without Contrast Exam date and time: 07/31/2023 2:39 AM Age: 62 years old Clinical indication: Other: Rlq pain; Additional info: Rlq pain, HX of stones TECHNIQUE: Imaging protocol: Computed tomography of the abdomen and pelvis without contrast. COMPARISON: CT RENAL COLIC WO 12/16/2019 1:50 AM FINDINGS: Lungs: Left basilar atelectasis. Heart: Base of heart is unremarkable as visualized. Liver: Normal. No mass. Gallbladder and bile ducts: Normal. No calcified stones. No ductal dilation. Pancreas: Fatty atrophy of the pancreas. Spleen: Splenule is noted. Adrenal glands: Normal. No mass. Kidneys and ureters: Moderate right hydronephrosis with [id number]-left perinephric stranding. Right ureterectasis to the level of the ureterovesicular junction. At the right ureterovesicular junction there is a 4 mm stone. Stomach and bowel: Sigmoid diverticulosis without evidence of diverticulitis. Appendix: Appendix is not well visualized, no secondary evidence of appendicitis. Intraperitoneal space: Unremarkable. No free air. No significant fluid collection. Vasculature: Minimal scattered calcified atherosclerotic disease of the lower abdominal aorta and its major branches. Lymph nodes: Left upper quadrant central mesenteric root fat stranding with prominent lymph nodes which has decreased in prominence from study performed on 12/16/2019. Urinary bladder: Unremarkable as visualized. Reproductive: Unremarkable as visualized. Bones/joints: Diffuse degenerative change of the visualized osseous structures, moderate. Soft tissues: Unremarkable. IMPRESSION: 1. Obstructing right urinary stone at the level of the right ureterovesicular junction with details above. If there is concern for forniceal rupture, recommend CT urogram. 2. Additional findings as above. Dictated and Authenticated by: Dangelo Rollins MD. Ordering:MARGIE Ventura MD
[2023-07-31 05:10] VITALS: BP 111/69; PULSE 54; RESP 16; O2SAT 97
== END 2023-07-31 05:10 | disposition home or self-care (01) ==
PROVIDERS: Emergency Provider Student in an Organized Health Care Education/Training Program; PCP Family Medicine
DX: N20.0 Calculus of kidney (principal); R11.2 Nausea with vomiting, unspecified
CPT/HCPCS: 36415; 80053; 83690; 96361; 96365; 99284; 74176; 81003; 81015; 85025; J0131; J1885; J2405

== ENCOUNTER 2023-08-13 05:51 | Emergency (ER) | payer OTHER, SELFPAY ==
[2023-08-13 05:59] VITALS: BP 181/79; PULSE 65; RESP 16; TEMP 36.6; O2SAT 96
[2023-08-13 06:05] VITALS: BP 181/79; PULSE 65; RESP 16; TEMP 36.6; O2SAT 96
--- NOTE | 2023-08-13 06:11 | ED.GENADUL_ITS ---
Discharge Plan Discharge Details Chief Complaint: Urinary Primary Care Provider: Landon Almaguer ED Provider: Artemio Stauffer [facility] Meds and New Rx's Prescriptions: No Action meloxicam 15 mg tablet 15 mg PO DAILY Qty: 30 5RF fluticasone propion-salmeterol [Advair HFA] 115-21 mcg/actuation HFA aerosol inhaler 2 puff inhalation BID Qty: 12 12RF omeprazole 20 MG capsule,delayed release(DR/EC) 20 mg PO DAILY albuterol sulfate 8.5 GM HFA aerosol inhaler 2 puff Inhalation PRN PRN fluticasone propionate [Flonase] 16 GM spray,suspension 1 spry NS PRN PRN tamsulosin [Flomax] 0.4 mg capsule 0.4 mg PO DAILY Qty: 7 0RF HPI General Mode of arrival: ambulatory . Date/Time Provider Initiated Documentation: 08/13/23 06:11 . Limitations to Documentation: no limitations . Information obtained by: patient, RN notes reviewed and old records reviewed . HPI Narrative: Patient presents to ED with right lower quadrant/groin pain that woke him up from sleep. This pain is similar to the pain he had 2 weeks ago when he was diagnosed with a kidney stone. He did strain his urine for about a week but never actually passed the stone that he is aware of. Has not had any pain or problems since stopped taking the tamsulosin. Pain recurred this morning and wo ke him up from sleep. He has associated nausea but no vomiting. He has had no fever or hematuria. Related Data Home Medications Medication Instructions Recorded Confirmed albuterol sulfate 90 mcg/actuation 2 puff inhalation PRN PRN 01/02/13 08/13/23 aerosol inhaler fluticasone propionate 50 1 spry NS PRN PRN 01/02/13 08/13/23 mcg/actuation nasal spray,suspension (Flonase) omeprazole 20 mg capsule,delayed 20 mg PO DAILY 01/02/13 08/13/23 release meloxicam 15 mg tablet 15 mg PO DAILY #30 tabs 10/12/19 08/13/23 fluticasone propionate 115 2 puff inhalation BID #12 grams 09/06/22 08/13/23 mcg-salmeterol 21 mcg/actuation HFA inhaler (Advair HFA) tamsulosin 0.4 mg capsule (Flomax) 0.4 mg PO DAILY #7 caps 07/31/23 08/13/23 Previous Rx's Medication Instructions Recorded meloxicam 15 mg tablet 15 mg PO DAILY #30 tabs 10/12/19 fluticasone propionate 115 2 puff inhalation BID #12 grams 09/06/22 mcg-salmeterol 21 mcg/actuation HFA inhaler (Advair HFA) tamsulosin 0.4 mg capsule (Flomax) 0.4 mg PO DAILY #7 caps 07/31/23 Allergies Allergy/AdvReac Type Severity Reaction Status Date / Time lactose Allergy unknown Verified 08/13/23 06:04 General Stated Complaint: Urinary JADA: 3 Review of Systems Narrative: Per HPI Exam Narrative Exam Narrative: Const: WDWN male in NAD. VS per triage. HEENT: NC/AT. Normal facial exam. Neck: Supple. Trachea midline. Lungs: Normal respiratory effort. Lungs are clear. Cor: RRR without murmur. Good radial pulses. GI: Soft/ND/NT. Neuro: A+O x 3. Normal speech, mentation, gait. Cranial nerves II - XII g rossly intact. No gross motor or sensory deficit. Ext: No C/C/E. Course Vital Signs Vital signs: Vital Signs Temperature 97.9 F 08/13/23 05:59 Pulse 65 08/13/23 05:59 Respiratory Rate 16 08/13/23 05:59 Blood Pressure 181/79 H 08/13/23 05:59 Pulse Oximetry 96 08/13/23 05:59 Temperature 97.9 F 08/13/23 06:05 Temperature Source Oral 08/13/23 06:05 Pulse 65 08/13/23 06:05 Respiratory Rate 16 08/13/23 06:05 Respiratory Effort Normal, Non-Labored 08/13/23 06:04 Blood Pressure 181/79 H 08/13/23 06:05 Blood Pressure Position Sitting 08/13/23 06:05 Pulse Oximetry 96 08/13/23 06:05 Oxygen Delivery Method Room Air 08/13/23 06:05 Oxygen Flow Rate 0 08/13/23 05:59 Pain Level 6 08/13/23 06:05 Medical Decision Making Patient presenting with right lower quadrant/groin pain similar to presentation 2 weeks ago when he was diagnosed with a kidney stone. Review of the record shows that he has a 4 mm UVJ stone. He has not had any pain since that time until this morning. He is no longer taking the tamsulosin. He is unsure whether he ever passed that stone or not. Has a benign abdomen. He is not febrile. IV in place by nursing. Will send CBC and BMP, obtain urine, repeat stone study to see if any significant changes. Patient white count mildly elevated to 11.9. Kidney function stable with a creatinine 1.4. Urine is not infected. CT scan is completed and per my read appears to have significant hydronephrosis and hydroureter with stone apparently still at the UVJ. We are waiting formal read. Signed out to oncoming ED physician Dr. Pizarro pending read and possible referral to urology. Quality:SDOH Health Related Social Needs: No Data to Display PFSH All Active Problems Kidney stone (Chronic) Post-nasal drip (Acute) Organizing pneumonia (Acute) Abnormal chest xray (Acute) Osteoarthritis of right knee (Acute) Knee pain (Acute) Pleuritic chest pain (Acute) Hypotension (Acute) Discharge planning issues (Acute) DVT prophylaxis (Acute) Sleep apnea (Chronic) Asthma, intermittent (Chronic) GERD (gastroesophageal reflux disease) (Chronic) Postprocedural aspiration pneumonitis (Acute) Encounter for screening colonoscopy (Acute) Medical History Asthma ILD (interstitial lung disease) Kidney stone on right side Diverticulosis Lactose intolerance Allergic rhinitis Hyperlipidemia Low back pain Renal cyst, right Surgical History Hx of wisdom tooth extraction H/O vasectomy Hx of arthroscopy of right knee Hx of rhinoplasty Hx of colonoscopy 09/25/18 Family History Father Heart disease Diabetes type II Brother Stroke cerebral aneurysm rapture Mother Brain cancer Sister Lung cancer Diabetes Son Diabetes Social History Smoking/Tobacco Use Status: Never Smoking risk assessment performed?: Yes Alcohol Intake: current Alcohol Intake frequency: a few times a month Alcohol type: hard liquor Drug use: Never Substance use type: does not use Housing: house Do you feel safe at home: Yes Do you feel safe in your relationship?: Yes
--- NOTE | 2023-08-13 06:15 | DI.CT_ITS ---
Exam(s) CT RENAL COLIC WO EXAM: CT RENAL COLIC WO CLINICAL HISTORY: RLQ/groin pain. TECHNIQUE: Imaging Protocol: Axial computed tomography images with coronal and sagittal reformatted images were created and reviewed. CONTRAST MATERIAL: Noncontrast COMPARISON: CT CT ABDOMEN PELVIS WO from 07/31/2023 FINDINGS: Lung Bases: Normal where visualized. Liver: Normal attenuation. No measurable mass. Gallbladder and biliary tract: No radiodense calculus or dilation. Pancreas: Normal density, no calcifications or inflammatory process. Spleen: Normal. Kidneys: There has been no change in position of the previously noted 5 millimeters calculus at the r ight ureterovesical junction. There is similar mild right hydronephrosis. There is right perinephri c stranding, also unchanged. No new renal calculi. Right renal cysts again noted. Adrenal glands: No masses seen. Abdominal Aorta: Abdominal portion non-dilated. Soft tissues: Unremarkable. Bladder: Symmetric distention, no gross wall thickening. No visible mass. Bowel: No obstruction or bowel wall thickening. Diverticulosis of the sigmoid. Appendix normal. Reproductive: Unremarkable. Peritoneal cavity: No ascites, collection or mesenteric inflammatory response. Bones: Unremarkable for age.. IMPRESSION: The previously noted 5 millimeter calculus at the right ureteral vesicle junction remains present. T here is no change in mild right hydronephrosis and perinephric stranding. RADIATION DOSE DELIVERED: 1,235.19mGy.cm Total DLP DATA REPOSITORY: All CT scans at this facility are submitted to the National Radiology Data Registry (NRDR) Dose Index Registry (DIR) with the [employer] (A[employer]). RADIATION OPTIMIZATION: All CT scans at this facility use at least one of these dose optimization te chniques: automated exposure control; mA and/or kV adjustment per patient size (includes targeted exa ms where dose is matched to clinical indication); or iterative reconstruction.
[2023-08-13 06:33] LABS: Abs Immature Grans 0.06 10^3/uL (0.0-0.06); Absolute Basophil Count 0.06 10^3/uL (0.0-0.2); Absolute Eosinophil Count 0.24 10^3/uL (0.0-0.7); Absolute Monocyte Count 1.02 10^3/uL (0.1-0.8); Absolute Neutrophil Count 9.27 10^3/uL (1.2-6.7); Basophils % 0.5 %; HCT 46.4 % (40.0-50.0); HGB 15.1 g/dL (13.5-17.5); Immature Grans % 0.5 %; Lymphocytes % 10.4 %; MCH 30.5 pg (27.0-33.0); MCHC 32.5 % (32.0-36.0); MCV 94 fL (80-95); MPV 10.8 fL (8.0-11.0); Monocytes % 8.6 %; Platelet Count 168 10^3/uL (130-400); RBC 4.95 10^6/uL (4.36-5.78); RDW 13.2 % (11.8-14.1); RDW-SD 45.2 fL; WBC 11.88 10^3/uL (4.4-10.8)
[2023-08-13 06:35] LABS: Bilirubin Negative (Negative); Blood Trace-lysed (Negative); Clarity Clear (Clear); Glucose Negative (Negative); Ketones Negative (Negative); Leukocyte Esterase Negative (Negative); Nitrite Negative (Negative); Specific Gravity 1.015 (1.005-1.025); Urobilinogen 0.2 mg/dL (Up to 0.2)
[2023-08-13 06:36] LABS: Absolute Lymphocyte Count 1.24 10^3/uL (1.2-3.4)
[2023-08-13 06:42] LABS: Anion Gap 6.8 mmol/L (3-11); BUN 25 mg/dL (7-18); CO2 31.2 mmol/L (21.0-32.0); CREATININE 1.4 mg/dL (0.70-1.30); Chloride 103 mmol/L (98-107); Estimated GFR 56.48 (mL/min/1.73m2); Glucose 122 mg/dL (74-106); Potassium 4.3 mmol/L (3.5-5.1); Sodium 141 mmol/L (136-145)
[2023-08-13 06:53] LABS: Epithelial Cells Negative HPF (Negative); RBC 0-2 HPF (0-2); WBC Negative HPF (0-5)
[2023-08-13 06:54] LABS: Bacteria Negative HPF (Negative); C & S Indicated? No; Casts Negative LPF (Negative); Crystals Negative HPF (Negative); Mucus Negative (Negative)
[2023-08-13] MEDS: Acetaminophen 500 MG TAB 1000 MG PO (08:04)
--- NOTE | 2023-08-13 09:13 | ED.PROG_ITS ---
Date of service: 08/13/23 Time of Service: 09:14 Medical Decision Making Patient was signed out to me by my colleague Dr. Stauffer. Please refer to his HPI, physical exam. Pending CT scan results. CT scan results have returned, 5 mm stone is noted at the right UVJ, no significant change in position, there is mild right hydronephrosis and perinephric stranding, patient has no fever, no significantly elevated white count, no bandemia. Renal function is stable. No evidence of infection on urinalysis. Symptoms clinically inconsistent with pyelonephritis, patient's pain is well-controlled. With the presence of the stone, I do feel that not emergent intervention is indicated. We did reach out to urology and I spoke with Lucero Villalobos. She came and evaluated the patient and we will get him on the schedule for prompt follow-up this week. Otherwise patient shows no signs of urinary failure/renal failure, infection, sepsis, or life-threatening etiology at this stage. Will give additional Flomax and Toradol for home use. Patient will follow closely. Discussed red flags which return. I have extensively reviewed the treatment plan and discharge instructions with the patient. I have addressed all patient concerns at this time. The patient was made aware of what symptoms to monitor for that would warrant a return to the emergency department. Discussed the plan with the patient, they demonstrate verbal understanding and agreement with our assessment and plan at this time. The documentation in this chart was dictated using [employer] dictation software. Please excuse any dictation errors. FINDINGS: Lung Bases: Normal where visualized. Liver: Normal attenuation. No measurable mass. Gallbladder and biliary tract: No radiodense calculus or dilation. Pancreas: Normal density, no calcifications or inflammatory process. Spleen: Normal. Kidneys: There has been no change in position of the previously noted 5 millimeters calculus at the right ureterovesical junction. There is similar mild right hydronephrosis. There is right perinephric stranding, also unchanged. No new renal calculi. Right renal cysts again noted. Adrenal glands: No masses seen. Abdominal Aorta: Abdominal portion non-dilated. Soft tissues: Unremarkable. Bladder: Symmetric distention, no gross wall thickening. No visible mass. Bowel: No obstruction or bowel wall thickening. Diverticulosis of the sigmoid. Appendix normal. Reproductive: Unremarkable. Peritoneal cavity: No ascites, collection or mesenteric inflammatory response. Bones: Unremarkable for age.. IMPRESSION: The previously noted 5 millimeter calculus at the right ureteral vesicle junction remains present. There is no change in mild right hydronephrosis and perinephric stranding. Quality:[facility] Health Related Social Needs: No Data to Display Sign Out Sign Out Data: Sign Out Comment: Pending formal read of CT scan and possible urology consult. Last updated by Artemio Stauffer MD at 08/13/23 07:41 Discharge Plan Disposition Patient Disposition: Home Condition: Good Discharge Details Clinical Impression: Kidney stone Primary Care Provider: Landon Almaguer ED Provider: Lorenzo Pizarro Home Meds and New Rx's Prescriptions: New ketorolac 10 mg tablet 10 mg PO TID 5 Days Qty: 15 0RF tamsulosin [Flomax] 0.4 mg capsule 0.4 mg PO DAILY Qty: 10 0RF No Action meloxicam 15 mg tablet 15 mg PO DAILY Qty: 30 5RF fluticasone propion-salmeterol [Advair HFA] 115-21 mcg/actuation HFA aerosol inhaler 2 puff inhalation BID Qty: 12 12RF omeprazole 20 MG capsule,delayed release(DR/EC) 20 mg PO DAILY albuterol sulfate 8.5 GM HFA aerosol inhaler 2 puff Inhalation PRN PRN fluticasone propionate [Flonase] 16 GM spray,suspension 1 spry NS PRN PRN tamsulosin [Flomax] 0.4 mg capsule 0.4 mg PO DAILY Qty: 7 0RF Discharge Instructions Instructions: Kidney Stone, Adult ED Additional Instructions: At this time it does not appear that your kidney stone has moved in comparison to the last visit. Unfortunately there is likely a stricture at the end of your ureter which is causing it to be stuck. It will probably need to be removed by Dr. Shearer and the stent may need to be placed. Their office will contact you for follow-up appointment this week. Please take the Flomax and ketorolac/Toradol as prescribed. They have been sent to your [facility] pharmacy on file. Only take the ketorolac/Toradol as needed for pain. Please take the Flomax every day as directed. Please continue to strain your urine. If you notice any worsening of your symptoms, or any new symptoms such as vomiting, diarrhea, fever, chills, shortness of breath, chest pain, numbness, weakness, or fainting , please return immediately to the emergency department for reevaluation. Please follow up with your primary care provider as soon as possi ble for reassessment and reevaluation. As always, it was a pleasure participating in your medical care today. Referrals: August Shearer MD [ [facility] STAFF PHYSICIAN] - Landon Almaguer [Primary Care Provider] -
[2023-08-13] MEDS: Tamsulosin 0.4 MG CAPCR PO (09:25)
[2023-08-13 09:57] VITALS: BP 150/88; PULSE 53; RESP 17; TEMP 36.7; O2SAT 98
--- NOTE | 2023-08-13 16:28 | W.UROLOGYCON ---
Date of service: 08/13/23 Time of Service: 09:45 Assessment and Plan Assessment and plan (1) Kidney stone: Status: Acute Assessment and plan: Reviewed with the reimaged ordered by ER provider. Comparing the CT from today to the one from approximately 2 weeks ago, there appears to be no change in position of the 4 to 5 mm calculi to the right UVJ. There are similar mild right hydronephrosis. His urinalysis is negative for infection. He has a slight white count at 11.8. Discussed with the patient that at this point it appears that he still has not passed his stone. He is nontoxic and at this point comfortable/stable for discharge home to be followed-up with in clinic. Recommend to ER provider discharge home for follow-up in clinic with the following medication tamsulosin, ketorolac and antiemetic as needed. Will coordinate with office staff to have him be seen in the next 1 to 2 weeks to discuss surgical intervention. Dictation was done by [employer] voice recognition. Errors may be present within the note. History of Present Illness Narrative: Dr. Pizarro requested consult and evaluation of this individual since he was a bounce back patient to the ER. Lester is a 62-year-old male with a right lower abdominal/flank pain. He was previously seen through the ER and diagnosed with a right UVJ calculi. Originally he was feeling better then pain flared again and woke him up last night. He states his LUTS are stable. He has no dysuria or gross hematuria. Consults Consult date: 08/13/23 Requesting physician: Lorenzo Pizarro Review of Systems Narrative: See HPI PFSH All Active Problems (Updated 08/13/23 @ 16:32 by Lucero Villalobos DNP) Kidney stone (Acute) Post-nasal drip (Acute) Organizing pneumonia (Acute) Abnormal chest xray (Acute) Osteoarthritis of right knee (Acute) Knee pain (Acute) Pleuritic chest pain (Acute) Hypotension (Acute) Discharge planning issues (Acute) DVT prophylaxis (Acute) Sleep apnea (Chronic) Asthma, intermittent (Chronic) GERD (gastroesophageal reflux disease) (Chronic) Postprocedural aspiration pneumonitis (Acute) Encounter for screening colonoscopy (Acute) Medical History Asthma ILD (interstitial lung disease) Kidney stone on right side Diverticulosis Lactose intolerance Allergic rhinitis Hyperlipidemia Low back pain Renal cyst, right Surgical History Hx of wisdom tooth extraction H/O vasectomy Hx of arthroscopy of right knee Hx of rhinoplasty Hx of colonoscopy 09/25/18 Family History Father Heart disease Diabetes type II Brother Stroke cerebral aneurysm rapture Mother Brain cancer Sister Lung cancer Diabetes Son Diabetes Social History Smoking/Tobacco Use Status: Never Smoking risk assessment performed?: Yes Alcohol Intake: current Alcohol Intake frequency: a few times a month Alcohol type: hard liquor Drug use: Never Substance use type: does not use Housing: house Do you feel safe at home: Yes Do you feel safe in your relationship?: Yes Exam Const Orientation: alert, awake and oriented x3 Eyes Sclera: sclerae normal Resp Effort & Inspection: normal respiratory effort GI Inspection: normal to inspection and non-distended Palpation: soft, no masses and nontender General: No CVA tenderness Extrem General: full ROM Results Last Vital Signs Temp 98.1 F 08/13/23 09:57 Pulse 53 L 08/13/23 09:57 Resp 17 08/13/23 09:57 BP 150/88 H 08/13/23 09:57 Pulse Ox 98 08/13/23 09:57 Labs 08/13/23 06:00 08/13/23 06:00 Labs: Laboratory Results - last 24 hr 08/13/23 06:00 WBC 11.88 H RBC 4.95 Hgb 15.1 Hct 46.4 MCV 94 MCH 30.5 MCHC 32.5 RDW 13.2 Plt Count 168 MPV 10.8 Immature Gran % 0.5 Neutrophils % 78.0 Lymphocytes % 10.4 Monocytes % 8.6 Eosinophils % 2.0 Basophils % 0.5 Nucleated RBC % 0.0 Absolute Neutrophils 9.27 H Absolute Lymphocytes 1.24 Absolute Monocytes 1.02 H Absolute Eosinophils 0.24 Absolute Basophils 0.06 Sodium 141 Potassium 4.3 Chloride 103 Carbon Dioxide 31.2 Anion Gap 6.8 BUN 25 H Creatinine 1.4 H Est GFR (CKD-EPI 2020) 56.48 Glucose 122 H Calcium 9.0 Urine Color Yellow Urine Clarity Clear Urine pH 7.0 Ur Specific [place] 1.015 Urine Protein Negative Urine Ketones Negative Urine Blood Trace-lysed H Urine Nitrite Negative Urine Bilirubin Negative Urine Urobilinogen 0.2 Ur Leukocyte Esterase Negative Urine RBC 0-2 Urine WBC Negative Ur Epithelial Cells Negative Urine Crystals Negative Urine Bacteria Negative Urine Casts Negative Urine Mucus Negative Ur Culture Indicated? No Urine Glucose Negative
== END 2023-08-13 09:59 | disposition home or self-care (01) ==
PROVIDERS: Emergency Medicine; Emergency Provider Student in an Organized Health Care Education/Training Program; PCP Family Medicine
DX: R10.31 Right lower quadrant pain; I10 Essential (primary) hypertension; Z87.442 Personal history of urinary calculi; N20.1 Calculus of ureter
CPT/HCPCS: 00123; 36415; 80048; 99284; 74176; 81003; 81015; 85025; 99283

== ENCOUNTER 2023-08-18 06:50 | Day surgery (SDC) | payer OTHER, SELFPAY ==
[2023-08-18] VITALS (13 sets, daily range): BP systolic 103–167; BP diastolic 67–100; PULSE 45–65; RESP 16–22; TEMP 36.1–36.7; O2SAT 94–99; BMI 36.9
[2023-08-18] MEDS: Lactated Ringers 1,000 ML 80 ML IV (07:30)
--- NOTE | 2023-08-18 08:38 | HPE_ITS ---
Date of service: 08/18/23 Time of Service: 08:38 Assessment and Plan Assessment and plan (1) Right distal ureteral calculus: Status: Acute Assessment and plan: His stone has not passed with conservative management. We will plan cystoscopy with right ureteroscopy and stone manipulation. All History of Present Illness History of Present Illness Chief Complaint: Right ureteral stone Narrative: This is a 62-year-old gentleman who does have a previous history of kidney s tones. He was able to pass a previous stone with no surgical intervention needed. He has a previously identified right upper pole kidney stone that migrated into the right distal ureter. It has been causing intermittent symptoms and he has had multiple visits to the emergency department for renal colic. On repeat imaging, his stone has not progressed. He presents now for ureteroscopy and stone manipulation. Review of Systems Narrative: No fevers or chills No vision change or dysphasia No diabetes or thyroid dysfunction Sleep apnea. No shortness of breath, cough or hemoptysis No chest pain or palpitations GERD. No hepatitis, ulcers, jaundice No seizures, strokes or peripheral neuropathy No bleeding disorders or anemia No gout PFSH All Active Problems (Updated 08/18/23 @ 08:41 by August Shearer MD) Right distal ureteral calculus (Acute) Kidney stone (Acute) Post-nasal drip (Acute) Organizing pneumonia (Acute) Abnormal chest xray (Acute) Osteoarthritis of right knee (Acute) Knee pain (Acute) Pleuritic chest pain (Acute) Hypotension (Acute) Discharge planning issues (Acute) DVT prophylaxis (Acute) Sleep apnea (Chronic) Asthma, intermittent (Chronic) GERD (gastroesophageal reflux disease) (Chronic) Postprocedural aspiration pneumonitis (Acute) Encounter for screening colonoscopy (Acute) Medical History Asthma ILD (interstitial lung disease) Kidney stone on right side Diverticulosis Lactose intolerance Allergic rhinitis Hyperlipidemia Low back pain Renal cyst, right Surgical History Hx of wisdom tooth extraction H/O vasectomy Hx of arthroscopy of right knee Hx of rhinoplasty Hx of colonoscopy 09/25/18 Family History Father Heart disease Diabetes type II Brother Stroke cerebral aneurysm rapture Mother Brain cancer Sister Lung cancer Diabetes Son Diabetes Social History Smoking/Tobacco Use Status: Never Smoking risk assessment performed?: Yes Alcohol Intake: current Alcohol Intake frequency: a few times a month Alcohol type: hard liquor Drug use: Never Substance use type: does not use Housing: house Do you feel safe at home: Yes Do you feel safe in your relationship?: Yes Meds Allergies and Home Medications Allergies Allergy/AdvReac Type Severity Reaction Status Date / Time lactose Allergy unknown Verified 08/18/23 07:16 Home Medications Medication Instructions Recorded Confirmed Type albuterol sulfate 90 mcg/actuation 2 puff inhalation PRN PRN 01/02/13 08/18/23 History aerosol inhaler fluticasone propionate 50 1 spry NS PRN PRN 01/02/13 08/18/23 History mcg/actuation nasal spray,suspension (Flonase) omeprazole 20 mg capsule,delayed 20 mg PO DAILY 01/02/13 08/18/23 History release meloxicam 15 mg tablet 15 mg PO DAILY #30 tabs 10/12/19 08/18/23 Rx fluticasone propionate 115 2 puff inhalation BID #12 grams 09/06/22 08/18/23 Rx mcg-salmeterol 21 mcg/actuation HFA inhaler (Advair HFA) tamsulosin 0.4 mg capsule (Flomax) 0.4 mg PO DAILY #10 caps 08/13/23 08/18/23 Rx Exam Const General: cooperative Resp Effort & Inspection: normal respiratory effort Auscultation: clear to auscultation bilaterally Cardio Rate: regular rate Rhythm: regular rhythm GI Palpation: soft and no masses Neuro General: patient alert, patient awake and patient oriented x3 Results Last Vital Signs Temp 36.2 C L 08/18/23 07:00 Pulse 53 L 08/18/23 07:18 Resp 16 08/18/23 07:18 BP 164/78 H 08/18/23 07:18 Pulse Ox 97 08/18/23 07:18 Time Spent Time spent with Patient: <40 minutes Time was spent: other
--- NOTE | 2023-08-18 08:54 | ANES.PREOP_ITS ---
General Info Date of Service Date Performed: 08/18/23 Height: 5 ft 7 in Weight: 107.1 kg Body Mass Index (BMI): 36.9 Surgical Procedure: Operation Date: 08/18/23 09:10 Proposed Procedure Side Surgeon p Cystoscopy/Retrograde/Ureteroscopy with Stone Manipulation & possible Stent Right August Shearer MD Meds Allergies and Home Medications Allergies Allergy/AdvReac Type Severity Reaction Status Date / Time lactose Allergy unknown Verified 08/18/23 07:16 Home Medication Medication Instructions Recorded albuterol sulfate 90 mcg/actuation 2 puff inhalation PRN PRN 01/02/13 aerosol inhaler fluticasone propionate 50 1 spry NS PRN PRN 01/02/13 mcg/actuation nasal spray,suspension (Flonase) omeprazole 20 mg capsule,delayed 20 mg PO DAILY 01/02/13 release meloxicam 15 mg tablet 15 mg PO DAILY #30 tabs 10/12/19 fluticasone propionate 115 2 puff inhalation BID #12 grams 09/06/22 mcg-salmeterol 21 mcg/actuation HFA inhaler (Advair HFA) tamsulosin 0.4 mg capsule (Flomax) 0.4 mg PO DAILY #10 caps 08/13/23 Current Visit Medications: Current Medications Generic Name Dose Route Start Last Admin Trade Name Freq PRN Reason Stop Dose Admin Ringer's Solution 1,000 mls @ 80 mls/hr 08/18/23 06:00 08/18/23 07:30 IV 09/14/23 23:59 80 mls/hr INFUSION TAMIR Administration Cefazolin Sodium/Dextrose 2 gm in 50 mls @ 100 mls/hr 08/18/23 06:00 Ancef Duplex IVPB 08/18/23 16:00 PREOP TAMIR IV Miscellaneous Supplies 1 each 08/18/23 06:00 Iv Access IV 09/14/23 23:59 DIRECTED TAMIR Sodium Chloride 0 ml 08/18/23 06:00 Normal Saline Flush 10 Ml Syr IV 09/14/23 23:59 PRN PRN Sodium Chloride 0 ml 08/18/23 06:00 Normal Saline 10 Ml Vial IJ 09/14/23 23:59 DIRECTED PRN Sterile Water 0 ml 08/18/23 06:00 Water,Injection,Sterile 10 Ml Vial IJ 09/14/23 23:59 DIRECTED PRN PFSH Active Problems Active Problems: Problem Status Onset Code Right distal ureteral calculus N20.1 Kidney stone N20.0 Post-nasal drip R09.82 Organizing pneumonia J84.89 Abnormal chest xray R93.89 Osteoarthritis of right knee M17.11 Knee pain M25.569 Pleuritic chest pain R07.81 Hypotension I95.9 Discharge planning issues Z02.9 DVT prophylaxis Z29.9 Sleep apnea G47.30 Asthma, intermittent J45.20 GERD (gastroesophageal reflux disease) K21.9 Postprocedural aspiration pneumonitis J95.4 Encounter for screening colonoscopy Z12.11 Depression F32.9 Medical History Medical History Asthma ILD (interstitial lung disease) Kidney stone on right side Diverticulosis Lactose intolerance Allergic rhinitis Hyperlipidemia Low back pain Renal cyst, right Medical History Comments:: ~5 years ago, colonoscopy: aspiration pneumonia post op leading to hospital admission had anesthesia ~1 year ago for bronchoscopy without complication Surgical History Surgical History Hx of wisdom tooth extraction H/O vasectomy Hx of arthroscopy of right knee Hx of rhinoplasty Hx of colonoscopy 09/25/18 Tobacco Smoking/Tobacco Use Status: Never Alcohol Alcohol Intake: current Alcohol intake frequency: a few times a month Alcohol type: hard liquor Substance Use Substance use: Never Substance use type: does not use Vital Signs and Lab Results Vital Signs Most Recent Vital Signs in EMR: Most Recent Vital Signs Temp Pulse Resp BP Pulse Ox 36.2 C L 53 L 16 164/78 H 97 08/18/23 07:00 08/18/23 07:18 08/18/23 07:18 08/18/23 07:18 08/18/23 07:18 Lab Results Blood Type / Crossmatch: No Data to Display Complete Blood Count: White Blood Count 11.88 10^3/uL (4.4-10.8) H 08/13/23 06:00 Red Blood Count 4.95 10^6/uL (4.36-5.78) 08/13/23 06:00 Hemoglobin 15.1 g/dL (13.5-17.5) 08/13/23 06:00 Hematocrit 46.4 % (40.0-50.0) 08/13/23 06:00 Platelet Count 168 10^3/uL (130-400) 08/13/23 06:00 Complete Metabolic Panel: Sodium 141 mmol/L (136-145) 08/13/23 06:00 Potassium 4.3 mmol/L (3.5-5.1) 08/13/23 06:00 Chloride 103 mmol/L (98-107) 08/13/23 06:00 Carbon Dioxide 31.2 mmol/L (21.0-32.0) 08/13/23 06:00 BUN 25 mg/dL (7-18) H 08/13/23 06:00 Creatinine 1.4 mg/dL (0.70-1.30) H 08/13/23 06:00 Est GFR (CKD-EPI 2020) 56.48 (mL/min/1.73m2) 08/13/23 06:00 Calcium 9.0 mg/dL (8.5-10.1) 08/13/23 06:00 Albumin 4.1 g/dL (3.4-5.0) 07/31/23 01:52 Glucose 122 mg/dL (74-106) H 08/13/23 06:00 Liver Function Panel: Alanine Aminotransferase (ALT/SGPT) 27 U/L (16-63) 07/31/23 01: 52 Aspartate Amino Transf (AST/SGOT) 22 U/L (15-37) 07/31/23 01:52 Coagulation Panel: No Data to Display Cardiac Panel: No Data to Display Arterial Blood Gas: No Data to Display Venous Blood Gas: No Data to Display Pancreas Panel: Lipase 25 U/L (16-77) 07/31/23 01:52 Thyroid Panel: No Data to Display Infectious Disease: No Data to Display Blood Cultures: No Data to Display Toxicology Panel: No Data to Display Imaging and Studies Imaging and Studies Study information below may be from another EMR and interpreted by another provider. Please see original notes in EMR for more complete details. Echocardiogram Summary: 02/14: LVEF 60%, no WMA. normal Rvfxn. PAS 28. Pulmonary Function Summary: 05/12: normal. Anesthesia Assessment and Plan Anesthesia History Personal History: Other Family History: No Family History of Anesthesia Complications Exercise Tolerance Exercise Tolerance: Metabolic Equivalents>4 Pertinent Negatives Pertinent Negatives: No Symptoms of GERD Cardiac & Pulmonary Exam Cardiac Exam: Normal S1/S2 Heart Sounds Pulmonary Exam: Clear Bilateral Breath Sounds Implantable Cardiac Device Does patient have a Pacemaker or an ICD?: No Airway Exam Known Difficult Airway: No Mallampati Class: 3 Mouth Opening: Narrow (< 3cm) Thyromental Distance: Greater than 3 cm Neck Range of Motion: Full ROM Neck Circumference: Thick Teeth Condition: Normal Dentition ASA Classification ASA Score: ASA 2 Emergency Case?: No NPO Status NPO Status: NPO Clears >2 hours, Solids >8 hours Anesthesia Plan Resuscitation Status: Full Code Anesthesia Technique: General Anesthesia Airway Planned: Endotracheal Tube Monitors Used: Standard Monitors Preoperative Comments:: Pt with break thru GERD despite Rx. History of aspiration with admission after colo. Plan: GETA.
[2023-08-18] MEDS: ceFAZolin 2 GM/50 ML BAG IVPB (09:38)
[2023-08-18] MEDS: Omnipaque 300 MG/ML 50 ML BTL (09:44)
[2023-08-18] MEDS: Lidocaine 2% Jelly 11 ML SYR (09:44)
--- NOTE | 2023-08-18 09:59 | W.PM.DSUDISC ---
Date of service: 08/18/23 Time of Service: 09:59 Discharge Plan Disposition Patient Disposition: Home Discharge Details Reason For Visit: ureteral stone Attending Provider: August Shearer Primary Care Provider: Landon Almaguer Home Meds and New Rx's Prescriptions: No Action meloxicam 15 mg tablet 15 mg PO DAILY Qty: 30 5RF fluticasone propion-salmeterol [Advair HFA] 115-21 mcg/actuation HFA aerosol inhaler 2 puff inhalation BID Qty: 12 12RF omeprazole 20 MG capsule,delayed release(DR/EC) 20 mg PO DAILY albuterol sulfate 8.5 GM HFA aerosol inhaler 2 puff Inhalation PRN PRN fluticasone propionate [Flonase] 16 GM spray,suspension 1 spry NS PRN PRN tamsulosin [Flomax] 0.4 mg capsule 0.4 mg PO DAILY Qty: 10 0RF Discharge Instructions Additional Instructions: no need to strain urine followup 6 to 8 weeks for renal US in office Discharge Orders Discharge Orders: Discharge Order (Routine); Ordered 08/18/23 Ordered By: August Shearer DS: Diagnosis Discharge Diagnosis (1) Right distal ureteral calculus: Status: Acute
--- NOTE | 2023-08-18 10:01 | ROE_ITS ---
Date of service: 08/18/23 Time of Service: 10:02 Operative Note Operative Note DATE OF PROCEDURE: 08/18/23 PRE-OP DIAGNOSIS: Right ureteral stone POST-OP DIAGNOSIS: same PROCEDURE: cystoscopy, basket extraction of right ureteral stone, right retrograde pyelogram SURGEON: August Shearer ANESTHESIA TYPE: General LMA/ETT Refer to Anesthesia Record ESTIMATED BLOOD LOSS: 5 PATHOLOGY: other (right ureteral stone for chemical analysis) COMPLICATIONS: None Patient was transported to: PACU Patient's condition: stable Implants: none Indications: This is a 62-year-old gentleman who has a history of kidney stones. He developed a right renal colic recently and was found to have a right distal ureteral stone. The stone has not passed in spite of conservative management. He presents for stone manipulation. Findings: Stone at the right ureteral orifice visible from the bladder Procedure Description: The patient was brought to the operating room on 08/18/2023. He was given IV antibiotics. After successful induction of general anesthesia, he was placed in the dorsal lithotomy position. His genitalia was prepped and draped sterilely. 2% Xylocaine jelly was instilled into the urethra to act as a local anesthetic. A 22 Stateless rigid cystoscope was then passed through the urethra into the bladder. The urethra and bladder were inspected with a 30 degree lens. The pendulous, bulbar and membranous urethra appeared normal with no strictures. The prostatic urethra showed some lateral lobe enlargement but no significant median lobe. The bladder neck was entered and the bladder mucosa was inspected. The left ureteral orifice appeared normal. Clear urine was seen coming from the left side. The right ureteral orifice had a stone clearly visible at the distal lumen. I was able to pass a Stephanie stone basket through the cystoscope and into the right ureteral orifice. I was able to open the basket and secure the stone within the basket. The stone was then removed in its entirety and sent to pathology for chemical analysis. I then passed a 5 Stateless access catheter through the cystoscope into the right ureteral orifice. We performed a right retrograde pyelogram by injecting Omnipaque through the access catheter under fluoroscopic guidance. No additional filling defects were seen. We then watched the right ureter drain adequately both visually and fluoroscopically. We elected not to place a ureteral stent. The patient tolerated this procedure well with no complications. He was taken to the recovery room in stable condition.
--- NOTE | 2023-08-18 10:10 | DI.RAD_ITS ---
Exam(s) XR RETROGRADE IN OR EXAM: XR RETROGRADE IN OR CLINICAL HISTORY: TECHNIQUE: 2D and realtime digital imaging was performed. CONTRAST MATERIAL: Refer to procedure report. COMPARISON: No exams were available for comparison FINDINGS: Fluoroscopy was provided for Dr. Shearer during the performance of a retrograde evaluation of the aye l collecting system. Please refer to the procedure report for complete details. Ka,r=7.76 mGy IMPRESSION: RADIATION DOSE DELIVERED: 0.0 0.0 0
[2023-08-18] MEDS: Phenazopyridine 200 MG TAB PO (10:48)
--- NOTE | 2023-08-18 11:06 | ANES.POST_ITS ---
Postoperative Evaluation Date, Time and Location Date Performed: 08/18/23 Time Performed: 11:06 Patient Location: Day Surgery Unit Vital Signs Most Recent Imported Vital Signs: Most Recent Vital Signs Temp Pulse Resp BP Pulse Ox 36.1 C L 49 L 16 134/78 95 08/18/23 10:39 08/18/23 10:39 08/18/23 10:39 08/18/23 10:39 08/18/23 10:39 Pain Score Most Recent Pain Score: Most Recent Pain Score Pain Level 6 08/18/23 10:39 Assessment Mental Status: Awake (Alert & Oriented to Patient Baseline) Airway and Respiratory Function: Patent airway with normal (patient baseline) respiratory exam Cardiovascular Function: Hemodynamically Stable Hydration Status: Adequately Hydrated Nausea & Vomiting: No Nausea or Vomiting Pain: Pt. Denies Any Pain Peripheral Nerve Block: Patient did not receive a nerve block Postoperative Comments:: Pt was intubated and extubated without event. OG placed and removed with clearing of gastric fluid prior to extubation. No s/s of gastric reflux. Edyta Hdz, [employer]ICE [employer]
[2023-08-23 13:05] LABS: Source: Right Ureter
== END 2023-08-18 11:26 | disposition home or self-care (01) ==
PROVIDERS: PCP Family Medicine; Visit Provider Urology
PROC: (CPT 52320; principal; 2023-08-18 09:00)
DX: N20.1 Calculus of ureter (principal); G21.9 Secondary parkinsonism, unspecified; J45.909 Unspecified asthma, uncomplicated; E78.5 Hyperlipidemia, unspecified
CPT/HCPCS: 52320; 74420; 82365; J0690; J1100; J1885; J2001; J2405; J2704; J3010; Q9967

== ENCOUNTER 2023-09-23 15:37 | Outpatient (REF) | payer OTHER, SELFPAY ==
[2023-09-23 13:06] LABS: Creatinine,Urine 98.77 mg/dL; Sodium, Urine 61 mmol/L
[2023-09-23 13:07] LABS: CLEAVED CELLS 130 mmol/24h (40-220); Creatinine,24hr Ur 2.07 g/24hr (0.95-2.49); Total Volume 2125 ml
[2023-09-24 09:10] LABS: Calcium Urine 6.3 mg/dL (See Note); Calcium Urine 24 hr 134 mg/24hr (100-300); Timed Urine Volume 2125 mL; Uric Acid Urine 43.6 mg/dL (See Note); Uric Acid Urine 24hr 927 mg/24hrs (250-750)
[2023-09-24 09:13] LABS: Magnesium 24hr Urine 61.6 mg/24hrs (12.0-192.0); Magnesium Random Urine 2.9 mg/dL (See Note); Timed Urine Volume 2125 mL
[2023-09-25 11:39] LABS: Citrate Excretion, 24hr, U 565 mg/24 h; Urine Volume 2125 mL
[2023-09-25 12:29] LABS: Oxalate, U 0.36 mmol/24 h (0.11-0.46); Oxalate, U 31.7 mg/24 h (9.7 - 40.5); Urine Volume 2125 mL
[2023-09-29 09:50] LABS: Timed Urine Volume 2125 mL
== END 2023-09-23 15:38 | disposition home or self-care (01) ==
LOC: LBN 15:37
PROVIDERS: PCP Family Medicine; Visit Provider Urology
DX: N20.0 Calculus of kidney (principal)
CPT/HCPCS: 82507; 83735; 81050; 82340; 82570; 83945; 84300; 84560

== ENCOUNTER 2024-01-26 04:42 | Outpatient (CLI) | payer OTHER, SELFPAY ==
[2024-01-26 09:04] LABS: Abs Immature Grans 0.03 10^3/uL (0.0-0.06); Absolute Basophil Count 0.04 10^3/uL (0.0-0.2); Absolute Lymphocyte Count 1.24 10^3/uL (1.2-3.4); Absolute Monocyte Count 0.68 10^3/uL (0.1-0.8); Absolute Neutrophil Count 4.76 10^3/uL (1.2-6.7); Basophils % 0.6 %; Eosinophils % 4.3 %; HGB 14.3 g/dL (13.5-17.5); Immature Grans % 0.4 %; Lymphocytes % 17.6 %; MCH 30.5 pg (27.0-33.0); MCHC 33.3 % (32.0-36.0); MCV 92 fL (80-95); MPV 10.6 fL (8.0-11.0); Monocytes % 9.6 %; Neutrophils % 67.5 %; Platelet Count 166 10^3/uL (130-400); RBC 4.69 10^6/uL (4.36-5.78); RDW 13.3 % (11.8-14.1); RDW-SD 45.3 fL; WBC 7.05 10^3/uL (4.4-10.8)
[2024-01-26 09:23] LABS: Hemoglobin A1C 6.1 % (<5.7)
[2024-01-26 09:30] LABS: Iron 99 ug/dL (65-175); Total Iron Binding Capacity 332 ug/dL (250-450); Transferrin Sat 30 % (20-55)
[2024-01-26 09:58] LABS: ALT 15 U/L (16-63); AST 18 U/L (15-37); Albumin 3.8 g/dL (3.4-5.0); Alkaline Phosphatase 97 U/L (46-116); Anion Gap 7.5 mmol/L (3-11); BUN 22 mg/dL (7-18); CO2 31.5 mmol/L (21.0-32.0); CREATININE 1.1 mg/dL (0.70-1.30); Calculated LDL 122 mg/dL (<100); Chloride 103 mmol/L (98-107); Cholesterol 191 mg/dL (<200); Estimated GFR 74.96 (mL/min/1.73m2); Ferritin 102 ng/mL (26-388); Glucose 104 mg/dL (74-106); HDL Cholesterol 50 mg/dL (40-60); Magnesium 2.1 mg/dL (1.8-2.4); Potassium 4.1 mmol/L (3.5-5.1); Sodium 142 mmol/L (136-145); TSH 2.29 uIU/mL (0.36-3.74); Total Protein 7.6 g/dL (6.4-8.2); Triglyceride 98 mg/dL (<150); Vitamin B12 478 pg/mL (193-986)
[2024-01-26 10:08] LABS: Vitamin D 25 Total 37.5 ng/mL (30-100)
[2024-01-26 10:17] LABS: FREE T4 0.92 ng/dL (0.76-1.46)
[2024-01-26 10:18] LABS: C-Reactive Protein < 0.50 mg/dL (<or=0.5)
[2024-01-26 17:08] LABS: Rheumatoid Factor <8.6 IU/mL (<12.0)
[2024-01-26 17:28] LABS: T3,Free 4.2 pg/mL (2.8-5.3)
[2024-01-26 19:01] LABS: PSA, Screening 0.4 ng/mL (<=4.5)
[2024-01-27 09:36] LABS: Lyme Ab w Rflx to Lyme Confirm Negative (Negative)
[2024-01-27 15:14] LABS: ANA Interpretation Negative (Negative)
[2024-01-27 19:43] LABS: Zinc, S 93 mcg/dL (60-106)
[2024-01-29 08:48] LABS: Thiamine (Vitamin B1), WB 118 nmol/L (70-180)
[2024-01-30 18:42] LABS: Pyridoxal 5-Phosphate (PLP), P 25 mcg/L (5-50)
== END 2024-01-26 04:43 | disposition home or self-care (01) ==
PROVIDERS: PCP Family Medicine; Visit Provider Nurse Practitioner Family
DX: R53.83 Other fatigue (principal); Z13.1 Encounter for screening for diabetes mellitus; Z13.29 Encounter for screening for other suspected endocrine disorder; E55.9 Vitamin D deficiency, unspecified; Z12.5 Encounter for screening for malignant neoplasm of prostate; Z13.6 Encounter for screening for cardiovascular disorders
CPT/HCPCS: 36415; 80053; 80061; 82306; 84153; 84630; 82607; 82728; 83036; 83540; 83550; 83735; 84207; 84425; 84439; 84443; 84481; 85025; 86038; 86140; 86431; 86618

== ENCOUNTER 2024-06-25 07:41 | Day surgery (SDC) | payer OTHER, SELFPAY ==
--- NOTE | 2024-06-24 15:43 | W.PM.DSUDISC ---
Date of service: 06/25/24 Discharge Plan Disposition Patient Disposition: Home Condition: Good Discharge Details Reason For Visit: screening colonoscopy Attending Provider: August Stone Primary Care Provider: Landon Almaguer Home Meds and New Rx's Prescriptions: Continued albuterol sulfate 90 mcg/actuation HFA aerosol inhaler 2 puff Inhalation PRN PRN (Reason: shortness of breath or wheezing) Qty: 8.5 11RF fluticasone propion-salmeterol [Advair HFA] 115-21 mcg/actuation HFA aerosol inhaler 2 puff inhalation BID Qty: 12 12RF potassium citrate 10 mEq (1,080 mg) tablet extended release 10 meq PO BID Qty: 180 4RF montelukast 10 mg tablet 10 mg PO QPM fluticasone propionate [Flonase Allergy Relief] 50 mcg/actuation spray,suspension 1 spray intranasal DAILY Rx Instructions: administer into each nostril hydrocortisone 2.5 % cream with applicator 1 applic topical QID omeprazole 20 MG capsule,delayed release(DR/EC) 20 mg PO DAILY fluticasone propionate [Flonase] 16 GM spray,suspension 1 spry NS PRN PRN No Action calcium 500 mg tablet Patient Comments: 1000 daily Discharge Instructions Instructions: Hemorrhoids, Diverticulosis Additional Instructions: Lester, it was good to meet you today, and I hope you feel well after the procedure. Your prep was excellent, and I could see everything very nicely. You have some internal hemorrhoids, and some diverticulosis, which was noted on your previous colonoscopies. I saw no signs of any polyps today. With 2 consecutive negative screening colonoscopies, I think it is very reasonable to transition to a 10-year follow-up. If you need anything, or have any questions at all, please do not hesitate to ask. 1. If tolerated, consume a soft, low fiber diet for 1-2 days. 2[address] Do not drive, drink alcohol, operate machinery, make critical decisions, or do activities that require coordination or balance for 24 hours. 3. Because air was put into your colon during the procedure, expelling air from your rectum (passing gas or farting) is normal. 4. You may not have a bowel movement for 1-3 days because of the colonoscopy prep. This is normal. 5. Go directly to the emergency room if you notice any of the following: Develop chills (warm to touch), or if you have a thermometer and your temperature is above 101 Difficulty breathing or difficultly swallowing Persistent vomiting Severe abdominal pain, other than gas cramps Severe chest pain Black, tarry stools Any bleeding ? exceeding one tablespoon 6. Call your physician if the site where your intravenous was started becomes red, swollen, painful, and warm to touch. 7. Your physician has reviewed your pre-procedure medications. Please continue to take those medications as previously ordered. You will be given specific information/education regarding any changes to your medications before leaving. Stand Alone Forms: Anesthesia Discharge InstIsidra Darnell (DSU) Activity:: Activity as Tolerated Diet:: As Tolerated Discharge Orders Discharge Orders: Discharge Order (Routine); Ordered 06/24/24 Ordered By: August Stone DS: Diagnosis Discharge Diagnosis (1) Encounter for screening colonoscopy: Status: Acute Asessment and Plan: Diverticulosis and internal hemorrhoids; otherwise negative screening colonoscopy. With 2 consecutive negative colonoscopies, transition to 10-year follow-up
--- NOTE | 2024-06-24 15:45 | W.COLOREPORT ---
Date of service: 06/25/24 Time of Service: 10:06 Colonoscopy Report Date of procedure: 06/25/24 Pre-op diagnosis general: screening colonoscopy Post-op diagnosis procedure note: other (Diverticulosis, internal hemorrhoids) Procedure: colonoscopy Surgeon: August Stone Anesthesia Type: General LMA/ETT Estimated blood loss (mL): 0 Pathology: none sent Complications: None Disposition: PACU Indications: Lester is a 63 year old man with a history of tubular adenomas who needs his next screening colonoscopy Prep: Miralax/Dulcolax Procedure Start Time: 09:44 Procedure End Time: 09:59 Retraction Time: 7 Findings: Sigmoid diverticulosis, internal hemorrhoid Procedure Description: After the induction of anesthesia, and with the patient in left lateral decubitus position, I began by performing an external anorectal exam.? Perineum and skin were normal, as was the anal verge.? There was no evidence of external hemorrhoids.? Next, I performed a digital rectal exam.? I did not appreciate any abnormal findings.? Next, I advanced a colonoscope into the rectal vault.? I performed retroflexion.? There are internal hemorrhoids.? Using insufflation, I then advanced the colonoscope beyond the rectal folds and into the sigmoid colon before advancing towards the cecum.? The scope was noted to be in the cecum by identification of the ileocecal valve and appendiceal orifice.? I then began withdrawing the colonoscope using repeated irrigation as necessary for full evaluation of the colonic mucosa. There is sigmoid diverticulosis once the scope was withdrawn to the level of the rectum, great care was taken to examine portions of the rectal folds.? Aside from the diverticulosis and hemorrhoids mentioned above, there was no other significant pathology. Finally, the scope was withdrawn and the patient was brought to the same-day surgery recovery unit as the anesthetic wore off. ?The findings and instructions were shared with the patient prior to discharge. Garwood Bowel Prep Garwood Bowel Prep Right Colon: 3 Left Colon: 2 Transverse Colon: 3 Total Score: 8
[2024-06-25 08:06] VITALS: BP 140/81; PULSE 55; RESP 20; TEMP 36.6; O2SAT 100
[2024-06-25] MEDS: Lactated Ringers 1,000 ML 80 ML IV (08:25)
--- NOTE | 2024-06-25 08:26 | W.ANESPRE ---
General Info Date of Service Date Performed: 06/25/24 Height: 5 ft 7 in Weight: 97.2 kg Body Mass Index (BMI): 33.5 Surgical Procedure: Operation Date: 06/25/24 09:05 Proposed Procedure Side Surgeon carl Stone MD Meds Allergies and Home Medications Allergies Allergy/AdvReac Type Severity Reaction Status Date / Time lactose Allergy unknown Verified 06/25/24 08:03 Home Medication ?Medication ?Instructions ?Recorded fluticasone propionate 50 1 spry NS PRN PRN 01/02/13 mcg/actuation nasal spray,suspension (Flonase) omeprazole 20 mg capsule,delayed 20 mg PO DAILY 01/02/13 release albuterol sulfate 90 mcg/actuation 2 puff inhalation PRN PRN 09/04/23 aerosol inhaler shortness of breath or wheezing #8.5 grams fluticasone propionate 115 2 puff inhalation BID #12 grams 09/04/23 mcg-salmeterol 21 mcg/actuation HFA inhaler (Advair HFA) potassium citrate 10 mEq (1,080 10 meq PO BID #180 tabs 10/14/23 mg) tablet,extended release fluticasone propionate 50 1 spray intranasal DAILY 06/03/24 mcg/actuation nasal spray,suspension (Flonase Allergy Relief) hydrocortisone 2.5 % rectal cream 1 applic topical QID 06/03/24 with applicator montelukast 10 mg tablet 10 mg PO QPM 06/03/24 calcium 500 mg tablet mg 06/25/24 Current Visit Medications: Current Medications Generic Name Dose Route Start Last Admin Trade Name Freq PRN Reason Stop Dose Admin Ringer's Solution 1,000 mls @ 80 mls/hr 06/25/24 06:00 IV 06/25/24 23:59 INFUSION [facility] IV Miscellaneous Supplies 1 each 06/25/24 06:00 Iv Access IV 06/25/24 23:59 DIRECTED TAMIR Ondansetron HCl 4 mg 06/24/24 15:47 Ondansetron 4 Mg/2 Ml Vial IVP 07/24/24 15:46 Q4H PRN PRN Nausea / Vomiting Sodium Chloride 0 ml 06/25/24 06:00 Normal Saline Flush 10 Ml Syr IV 06/25/24 23:59 PRN PRN Sodium Chloride 0 ml 05/02/25 06:00 Normal Saline 10 Ml Vial IJ 06/25/24 23:59 DIRECTED PRN Sterile Water 0 ml 06/25/24 06:00 Water,Injection,Sterile 10 Ml Vial IJ 06/25/24 23:59 DIRECTED PRN PFSH Active Problems Active Problems: Problem Status Onset Code 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 Post-nasal drip Acute R09.82 Organizing pneumonia Acute J84.89 Abnormal chest xray Acute R93.89 Osteoarthritis of right knee Acute M17.11 Knee pain Acute M25.569 Pleuritic chest pain Acute R07.81 Hypotension Acute I95.9 Sleep apnea Chronic G47.30 Asthma, intermittent Chronic J45.20 GERD (gastroesophageal reflux disease) Chronic K21.9 Postprocedural aspiration pneumonitis Acute J95.4 Encounter for screening colonoscopy Acute Z12.11 Depression Resolved F32.9 Medical History Medical History EDWARDO (obstructive sleep apnea) Vitamin D deficiency Right distal ureteral calculus Asthma ILD (interstitial lung disease) Kidney stone on right side Diverticulosis Lactose intolerance Allergic rhinitis Hyperlipidemia Low back pain Renal cyst, right Medical History Comments:: ~5 years ago, colonoscopy: aspiration pneumonia post op leading to hospital admission had anesthesia ~1 year ago for bronchoscopy without complication Surgical History Surgical History History of bronchoscopy (~2022) Hx of esophagogastroduodenoscopy EGD and Colonoscopy 06/19/12 [facility]. H/O ureteroscopy Hx of wisdom tooth extraction H/O vasectomy Hx of arthroscopy of right knee Hx of rhinoplasty Hx of colonoscopy 09/25/18 Tobacco Smoking/Tobacco Use Status: Never Alcohol Alcohol Intake: current Alcohol intake frequency: a few times a month Alcohol type: hard liquor Substance Use Substance use: Never Substance use type: does not use Details: alcohol: t-7, one drink Vital Signs and Lab Results Vital Signs Most Recent Vital Signs in EMR: Most Recent Vital Signs Temp Pulse Resp BP Pulse Ox 36.6 C 55 L 20 140/81 100 06/25/24 08:06 06/25/24 08:06 06/25/24 08:06 06/25/24 08:06 06/25/24 08:06 Lab Results Blood Type / Crossmatch: No Data to Display Complete Blood Count: No Data to Display Complete Metabolic Panel: No Data to Display Liver Function Panel: No Data to Display Coagulation Panel: No Data to Display Cardiac Panel: No Data to Display Arterial Blood Gas: No Data to Display Venous Blood Gas: No Data to Display Pancreas Panel: No Data to Display Thyroid Panel: No Data to Display Infectious Disease: No Data to Display Blood Cultures: No Data to Display Toxicology Panel: No Data to Display Imaging and Studies Imaging and Studies Study information below may be from another EMR and interpreted by another provider. Please see original notes in EMR for more complete details. Echocardiogram Summary: 02/14: LVEF 60%, no WMA. normal Rvfxn. PAS 28. Pulmonary Function Summary: 05/12: normal. Anesthesia Assessment and Plan Anesthesia History Personal History: No History of Anesthesia Complications Family History: No Family History of Anesthesia Complications Exercise Tolerance Exercise Tolerance: Metabolic Equivalents>4 Pertinent Negatives Pertinent Negatives: No Symptoms of GERD Cardiac & Pulmonary Exam Cardiac Exam: Normal S1/S2 Heart Sounds Pulmonary Exam: Clear Bilateral Breath Sounds Implantable Cardiac Device Does patient have a Pacemaker or an ICD?: No Airway Exam Known Difficult Airway: No Mallampati Class: 2 Mouth Opening: Narrow (< 3cm) Thyromental Distance: Greater than 3 cm Neck Range of Motion: Full ROM Neck Circumference: Thick Teeth Condition: Normal Dentition ASA Classification ASA Score: ASA 2 Emergency Case?: No NPO Status NPO Status: NPO Clears >2 hours, Solids >8 hours Anesthesia Plan Resuscitation Status: Full Code Anesthesia Technique: General Anesthesia Airway Planned: Natural Airway Monitors Used: Standard Monitors
[2024-06-25 08:28] VITALS: BMI 33.5
[2024-06-25 10:04] VITALS: BP 141/93; PULSE 75; RESP 16; TEMP 36; O2SAT 97
[2024-06-25 10:35] VITALS: BP 132/83; PULSE 47; RESP 18; TEMP 36.1; O2SAT 97
--- NOTE | 2024-06-25 10:53 | ANES.POST_ITS ---
Postoperative Evaluation Date, Time and Location Date Performed: 06/25/24 Time Performed: 10:53 Patient Location: Day Surgery Unit Vital Signs Most Recent Imported Vital Signs: Most Recent Vital Signs Temp Pulse Resp BP Pulse Ox 36.1 C L 47 L 18 132/83 97 06/25/24 10:35 06/25/24 10:35 06/25/24 10:35 06/25/24 10:35 06/25/24 10:35 Pain Score Most Recent Pain Score: Most Recent Pain Score Pain Level 0 06/25/24 10:35 Assessment Mental Status: Awake (Alert & Oriented to Patient Baseline) Airway and Respiratory Function: Patent airway with normal (patient baseline) respiratory exam Cardiovascular Function: Hemodynamically Stable Hydration Status: Adequately Hydrated Nausea & Vomiting: No Nausea or Vomiting Pain: Pt. Denies Any Pain Peripheral Nerve Block: Patient did not receive a nerve block Postoperative Comments:: no obvious aspiration. pt. asymptomatic. will go home with aspiration i nformation. suggest future colonoscopies with [facility]. Other natural airway cases should be fine, dry heaves and hiccups seem to be related to transverse colon/diaphragm irritation.
== END 2024-06-25 11:10 | disposition home or self-care (01) ==
LOC: SUR 07:42
PROVIDERS: PCP Family Medicine; Visit Provider Surgery
PROC: 0DJD8ZZ Inspection of Lower Intestinal Tract, Via Natural or Artificial Opening Endoscopic (ICD-10-PCS; CPT 45378; principal; 2024-06-25 09:00)
DX: Z12.11 Encounter for screening for malignant neoplasm of colon (principal); G47.30 Sleep apnea, unspecified; K21.9 Gastro-esophageal reflux disease without esophagitis; K57.30 Diverticulosis of large intestine without perforation or abscess without bleeding; Z86.0109 Personal history of other colon polyps; K64.0 First degree hemorrhoids
CPT/HCPCS: 45378; J2704

== ENCOUNTER 2024-11-01 07:23 | Outpatient (CLI) | payer OTHER, SELFPAY ==
[2024-11-01 11:58] LABS: Estimated GFR 83.52 (mL/min/1.73m2); Uric Acid 4.6 mg/dL (3.5-7.2)
== END 2024-11-01 07:24 | disposition home or self-care (01) ==
LOC: LBO 11-02 07:23
PROVIDERS: PCP Family Medicine; Visit Provider Nurse Practitioner
DX: M79.675 Pain in left toe(s) (principal)
CPT/HCPCS: 36415; 82565; 83036; 84550

== ENCOUNTER 2024-11-03 10:25 | Outpatient (REF) | payer OTHER, SELFPAY ==
[2024-11-03 19:27] LABS: Creatinine,Urine 26.17 mg/dL
[2024-11-03 19:28] LABS: Total Volume 2700 ml
[2024-11-03 19:58] LABS: Creatinine Clearance Urine 49 mls/min (97-137)
== END 2024-11-03 10:26 | disposition home or self-care (01) ==
LOC: NCHCN 10:25
PROVIDERS: PCP Family Medicine; Visit Provider Nurse Practitioner
DX: M79.675 Pain in left toe(s) (principal)
CPT/HCPCS: 81050; 82575

== ENCOUNTER 2025-01-13 01:46 | Outpatient (CLI) | payer OTHER, SELFPAY ==
[2025-01-13 10:48] LABS: Anion Gap 6.7 mmol/L (3-11); BUN 18 mg/dL (9-23); CO2 31.3 mmol/L (20.0-31.0); Calcium 9.6 mg/dL (8.3-10.6); Chloride 103 mmol/L (98-107); Cholesterol 204 mg/dL (<200); Glucose 110 mg/dL (74-106); HDL Cholesterol 48 mg/dL (>40); Potassium 4.2 mmol/L (3.5-5.1); Sodium 141 mmol/L (136-145)
[2025-01-13 10:50] LABS: Vitamin D 25 Total 60 ng/mL (30-100)
[2025-01-13 11:38] LABS: Folate > 24.0 ng/mL (>5.38); Vitamin B12 455 pg/mL (211-911)
[2025-01-13 11:58] LABS: Hemoglobin A1C 5.7 % (<5.7)
[2025-01-13 23:06] LABS: PSA, Screening 0.6 ng/mL (<=4.5)
== END 2025-01-13 01:47 | disposition home or self-care (01) ==
PROVIDERS: PCP Family Medicine; Visit Provider Nurse Practitioner Family
DX: Z13.1 Encounter for screening for diabetes mellitus (principal); Z13.6 Encounter for screening for cardiovascular disorders; Z00.00 Encounter for general adult medical examination without abnormal findings; Z12.5 Encounter for screening for malignant neoplasm of prostate
CPT/HCPCS: 36415; 80048; 80061; 82306; 84153; 82607; 82746; 83036